=== PATIENT | female | born 1975 | race Two or more races ===

== ENCOUNTER 2025-08-30 08:26 | Outpatient (AMB) | payer BC, SELFPAY ==
--- OUTSIDE RECORDS SUMMARY | 2025-07-05 09:00 | XMS_ITS ---
Author Organization [facility] [address] Address [address] [place] [address] Care Team Providers Care Field Observer Name Role Phone HUMPHREY DELUNA Unavailable [phone] JAE WILLINGHAM Unavailable [phone] REASON FOR VISIT 0.5mg Encounters Encounter Location Date Provider Diagnosis [facility] [place] [address] 07/05/2025 JAE WILLINGHAM Plan Of Treatment No Information Progress Notes * RIOSLore FELICIANOJacqueOB: 4 (49 yo F)Acc No.[id number]:07/05/2025 Patient: Charlotte CANTU Provider: Camila Willingham MD :1975 A ge:49 Y S ex:Female Date:07/05/2025 Address:[address] [place], [place] [id number] Subjective: * Chief Complaints: * 1 . 0.5mg. * Medical History: Objective: * Vitals: Assessment: Plan: * Treatment: * Images: Billing Information: * Visit Code: * Procedure Codes: * Electronic signature of RISA WILLINGHAM MD on 08/30/2025 at 08:49 AM EDT Sign off status: Pending * Provider: Camila Willingham MD Date: 0 07/05/2025 Generated for Saadia franklin/Marni/Syed on: 1 08:49 AM EDT
--- OUTSIDE RECORDS SUMMARY | 2025-07-14 04:00 | XMS_ITS ---
Author Organization [facility] [address] Address [address] [place] [address] Care Team Providers Care Nutritional Assistant Name Role Phone HUMPHREY DELUNA Unavailable [phone] JAE WILLINGHAM Unavailable [phone] REASON FOR VISIT 0.5mg Encounters Encounter Location Date Provider Diagnosis [facility] [address] [place] [address] 07/14/2025 JAE WILLINGHAM Plan Of Treatment No Information Progress Notes * RIOSLore BOOTHEJacqueOB: 4 (49 yo F)Acc No.[id number]:07/14/2025 Patient: Charlotte CANTU Provider: Camila Willingham MD :1975 A ge:49 Y S ex:Female Date:07/14/2025 Address:[address] [place], [place] [phone] Subjective: * Chief Complaints: * 1 . 0.5mg. * Medical History: Objective: * Vitals: Assessment: Plan: * Treatment: * Images: Billing Information: * Visit Code: * Procedure Codes: * Electronic signature of RISA WILLINGHAM MD on 08/30/2025 at 08:49 AM EDT Sign off status: Pending * Provider: Camila Willingham MD Date: 0 07/14/2025 Generated for Saadia franklin/Marni/Syed on: 1 08:49 AM EDT
--- OUTSIDE RECORDS SUMMARY | 2025-07-21 04:00 | XMS_ITS ---
Author Organization [facility] [address] Address [address] [place] [address] Care Team Providers Care Vulcanizing Machine Operator Name Role Phone HUMPHREY DELUNA Unavailable [phone] JAE WILLINGHAM Unavailable [phone] REASON FOR VISIT 0.5mg Encounters Encounter Location Date Provider Diagnosis [facility] [address] [place] [address] 07/21/2025 JAE WILLINGHAM Plan Of Treatment No Information Progress Notes * RIOSLore FELICIANOJacqueOB: 4 (49 yo F)Acc No.[id number]:07/21/2025 Patient: Charlotte CANTU Provider: Camila Willingham MD :1975 A ge:49 Y S ex:Female Date:07/21/2025 Address:[address] [place], [place] [phone] Subjective: * Chief Complaints: * 1 . 0.5mg. * Medical History: Objective: * Vitals: Assessment: Plan: * Treatment: * Images: Billing Information: * Visit Code: * Procedure Codes: * Electronic signature of RISA WILLINGHAM MD on 08/30/2025 at 08:50 AM EDT Sign off status: Pending * Provider: Camila Willingham MD Date: 0 07/21/2025 Generated for Saadia franklin/Marni/Syed on: 1 08:50 AM EDT
--- OUTSIDE RECORDS SUMMARY | 2025-07-28 04:00 | XMS_ITS ---
Author Organization [facility] [address] Address [address] [place] [address] Care Team Providers Care Regulatory Assistant Name Role Phone HUMPHREY DELUNA Unavailable [phone] JAE WILLINGHAM Unavailable [phone] REASON FOR VISIT 0.5mg Encounters Encounter Location Date Provider Diagnosis [facility] [address] [place] [address] 07/28/2025 JAE WILLINGHAM Plan Of Treatment No Information Progress Notes * RIOSLore FELICIANOJacqueOB: 4 (49 yo F)Acc No.[id number]:07/28/2025 Patient: Charlotte CANTU Provider: Camila Willingham MD :1975 A ge:49 Y S ex:Female Date:07/28/2025 Address:[address] [place], [place] [id number] Subjective: * Chief Complaints: * 1 . 0.5mg. * Medical History: Objective: * Vitals: Assessment: Plan: * Treatment: * Images: Billing Information: * Visit Code: * Procedure Codes: * Electronic signature of RISA WILLINGHAM MD on 08/30/2025 at 08:50 AM EDT Sign off status: Pending * Provider: Camila Willingham MD Date: 0 07/28/2025 Generated for Saadia franklin/Marni/Syed on: 1 08:50 AM EDT
--- OUTSIDE RECORDS SUMMARY | 2025-08-01 09:30 | XMS_ITS ---
Author Organization [facility] [address] Address [address] [place] [address] Care Team Providers Care Ip Network Architect Name Role Phone HUMPHREY DELUNA Unavailable [phone] Encounters Encounter Location Date Provider Diagnosis [facility] [place] [address] 08/01/2025 HUMPHREY DELUNA Plan Of Treatment No Information Progress Notes * Chet RIOSOB: 4 (49 yo F)Acc No.[id number]:08/01/2025 Patient: Charlotte CANTU Provider: Cory DELUNA PA-C :1975 A ge:49 Y S ex:Female Date:08/01/2025 Address:[address] [place], [place] [phone] Subjective: * Chief Complaints: * * Medical History: Objective: * Vitals: Assessment: Plan: * Treatment: * Images: Billing Information: * Visit Code: * Procedure Codes: * Electronic signature of FELICIANO DELUNA PA-C, [id number] on 08/30/2025 at 08:50 AM EDT Sign off status: Pending * Provider: Cory DELUNA PA-C Date: 0 08/01/2025 Generated for Saadia franklin/Marni/eTransmitting on: 1 08:50 AM EDT
--- NOTE | 2025-08-30 08:40 | A.OFFVIS_ITS ---
Intake Visit Reasons: dizziness Allergies No Known Allergies Allergy (Verified 08/29/25 13:06) Medication List - Last Reconciled 08/30/25 by Amie Hernández MD albuterol sulfate 90 mcg/actuation 2 inhalations inhalation Q6H PRN estradiol 1 patch topical 2XW montelukast 10 mg PO BEDTIME plecanatide (Trulance) 3 mg PO DAILY sumatriptan succinate mg PO topiramate 50 mg PO BID HPI Comments Details: This is a 49-year-old right-handed woman with a history of migraines with aura for 25 years currently under control with topiramate, history of IBS, endometriosis and PCOS who is here for evaluation of dizzy spells. Approximately 6 months ago she started having random episodes of lightheaded and vertiginous dizziness that comes on mostly when she stands up. She immediately has to sit down put her head down and sometimes lie down but even that does not lead to resolution of her symptoms and she feels crampy and wiped out for the rest of the day for several hours or the entire day. She can go a couple of weeks without any symptoms and then she can have 2 or 3 episodes in a week. There is no relationship to hydration, to eating or not eating. Her hearing is intact with no hearing loss or tinnitus. She does get some vertiginous sensation of things spinning but is also lightheaded. Occasionally she gets palpitation. It does not feel like any of her migraine prodromal symptoms. There is no subsequent headache. She was seen in the emergency room had a 24 hour Holter monitor in a 24 hour blood pressure monitor which were unremarkable. She sleeps well at night. There is no racing of the heart or skipped beats during the symptomatic episodes. Her blood pressure has been checked and is sometimes slightly low but not in a major way. [facility] Medical History (Updated 08/30/25 @ 09:00 by Amie Hernández MD) Migraine Asthma Dyspnea Palpitations Dizziness Insomnia Endometriosis PCOS (polycystic ovarian syndrome) IBS (irritable bowel syndrome) Surgical History (Updated 08/29/25 @ 13:02 by Felicita Sterling CMA) H/O: hysterectomy Review of Systems Const Details: ?Sleep Difficulty getting to sleep??denies.??Difficulty maintaining sleep??denies?.?? Urge to move legs??denies.??Teeth grinding??denies.??Shouting or Kicking during sleep??denies.??Abnormal behavior during sleep??denies.??Excessive sleep??denies.??Snoring??denies.??Daytime sleepiness??denies.? General/Constitutional Change in appetite??denies.??Chills??denies.??Fatigue??denies.??Fever??denies.?? Weight gain??denies.??Weight loss??denies.? Ophthalmologic Blurred vision??denies.??Diminished visual acuity??denies.? ENT Stuffiness??denies.??Decreased hearing??denies.??Dry mouth??denies.??Ear pain??denies.??Nosebleed??denies.??Ringing in the ears??denies.??Sinus pain ??denies.??Sore throat??denies.??Swollen glands??denies.? Endocrine Cold intolerance??denies.??Excessive thirst??denies.??Frequent urination ??denies.??Heat intolerance??denies.? Respiratory Shortness of breath??denies.??Chest pain??denies.??Cough??denies.? Breast Breast lump??denies.??Nipple discharge??denies.? Cardiovascular Chest pain at rest??denies.??Chest pain with exertion??denies.??Claudication ??denies.??Fluid accumulation in the legs??denies.??Irregular heartbeat ??denies.??Palpitations??denies.? Gastrointestinal Abdominal pain??denies.??Constipation??denies.??Diarrhea??denies.??Heartburn ??denies.??Nausea??denies.??Rectal bleeding??denies.? Hematology Easy bruising??denies.??Prolonged bleeding??denies.? Genitourinary Frequent urination??yes.??Urgency??denies.??Incontinence??denies.??Erectile Dysfunction??denies.? Musculoskeletal Neck pain??denies.??Back pain??denies.??Muscle aches??denies.??Painful joints??denies.? Neurologic Difficulty swallowing??denies.??Balance difficulty??denies.??Coordination ??normal.??Difficulty speaking??denies.??Dizziness??Yes.??Fainting??denies.?? Gait abnormality??denies.??Headache??Yes.??Loss of strength??denies.??Loss of use of extremity??denies.??Memory loss??denies.??Seizures??denies.??Tics ??denies.??Tingling/Numbness??denies.??Transient loss of vision??denies.?? Tremor??denies.? Psychiatric Anxiety??denies.??Auditory/visual hallucinations??denies.??Delusions ??denies.??Depressed mood??denies.??Stressors??denies.??Substance abuse ??denies.??Suicidal thoughts??denies.? Physical Exam Vital Signs: 119/83, 71. 62 inches, 131 lbs Neuro Other: ?Mini Mental Status Exam Level of Consciousness:?Alert.? Orientation:?Knows correct year, month, date, day and season.?Knows correct city, county and state. Knows correct location and floor.? Registration:?Able to register 3 objects.? Attention:?Serial 7's performed accurately.? Recall:?Able to recall 3 out of 3 objects.? Language:?Normal spontaneous speech, fluency, repetition, naming, comprehension, reading, and writing.? Total Score:?30/30.? Neurological Abnormal neurological findings:??none.? Mental Status:?Alert and oriented X 3.?Normal attention, orientation, memory, and affect.? Cranial Nerves:?Pupils are equal, round and reactive to light. Fundoscopy shows normal disc bilaterally. External occular muscles are intact. Visual liu are full, no ptosis. Face is symmetrical, no facial weakness or droop. Facial sensations are normal. Tongue protrudes in midline. Palate elevates symmetrically. Shoulder shrugging is normal.? Motor Examination:?Normal muscle tone, bulk and strength.?No atrophy or fasciculations.?No drift of the extended upper extremities.?Deep tendon reflexes are 2+.?Plantars are flexor.? Motor Strength:? Proximal Muscles (out of 5):?5 Distal Muscles (out of 5):?5 Neck Flexors (out of 5):?5 Neck Extensors (out of 5):?5 Deltoid (out of 5):?5 Biceps (out of 5):?5 Triceps (out of 5):?5 Serratus Anterior (out of 5):?5 Wrist Extensors (out of 5):?5 APB (out of 5):?5 Finger Spread (out of 5):?5 Ileopsoas (out of 5):?5 Quadriceps (out of 5):?5 Hamstrings (out of 5):?5 Tibialis Anterior (out of 5):?5 Peronei (out of 5):?5 EDB (out of 5):?5 Gastrocnemius (out of 5):?5 Straight Leg Raising:?90 degrees.? Sensory Exam:?Normal light touch, temperature, pinprick, vibration and joint-position sensations.?Rhomberg sign is absent.? Coordination:?No ataxia,?no titubation,?pfuvqr-tj-kdrd, wecs-bsft-akmz test, and rapid alternating movements were normal.? Gait Exam:?Within normal limits.? Cerebellar Signs:?Lgsgmf-bu-rfct and txig-wk-iifw is normal.?No dysdiadochokinesia.? Extrapyramidal System:?No tremor or?rigidity, normal facial expressions.?No bradykinesia. No bradyphrenia. Normal arm swing and posture. No propulsion or retropulsion.? Speech:?Normal,?no dysphasia or dysarthria.? General Examination GENERAL APPEARANCE:??normal,?in no acute distress?,?normal,?in no acute distress.? HEAD:??normocephalic,?atraumatic.? EYES:??sclera non-icteric,?conjunctiva clear.? EARS:??auditory canal clear,?tympanic membrane intact, clear.? NOSE:??no lesions.? ORAL CAVITY:??gums normal,?mucosa moist,?no lesions.? THROAT:??clear.? NECK/THYROID:??no cervical lymphadenopathy,?thyroid normal,?neck supple, full range of motion,?no carotid bruit.? SKIN:??no rashes,?no significant birthmarks.? HEART:??S1, S2 normal,?no murmurs?,?S1, S2 normal,?no murmurs.? LUNGS:??clear anteriorly and posteriorly?,?clear anteriorly and posteriorly.? CHEST:??no gross rib deformity,?clear to auscultation.? BACK:??normal exam of spine.? MUSCULOSKELETAL:??normal.? EXTREMITIES:??no edema?,?no edema.? PERIPHERAL PULSES:??normal.? PSYCH:??alert, oriented,?cognitive function intact,?cooperative with exam?,?alert, oriented,?cognitive function intact,?cooperative with exam.? Assessment & Plan Assessment & Plan (1) Migraine: Code(s): G43.909 - Migraine, unspecified, not intractable, without status migrainosus Category: Medical (2) Dizziness: Code(s): R42 - Dizziness and giddiness Category: Medical (3) Palpitations: Code(s): R00.2 - Palpitations Category: Medical Plan MRI brain, EEG, Labs. Check BP at home with arm cuff especially when symptomatic. Keep a log of events and their duration on a calendar Orders: Orders Basic Metabolic Panel Today R42 - Dizziness and giddiness Erythrocyte Sedimentation Rate Today R42 - Dizziness and giddiness MR head/brain wo con 3 Weeks R42 - Dizziness and giddiness EEG Routine Today R42 - Dizziness and giddiness Complete Blood Count Auto Diff Today R42 - Dizziness and giddiness TSH reflex Free T4 Today R00.2 - Palpitations Coding Level of Care Code New Pt Level 5 (49883) Diagnoses Migraine G43.909 Dizziness R42 Palpitations R00.2
--- OUTSIDE RECORDS SUMMARY | 2025-08-30 08:50 | XMS_ITS | Patient Health Record ---
Author Organization [facility] Address [address] [place] [address] Care Team Providers Care Intern Brand Name Role Phone HUMPHREY DELUNA Unavailable [phone] [place], PUJAGEORGETTE Unavailable [phone] CLIFF MOULTON Unavailable [phone] PAN GARCES Unavailable [phone] Allergies No Known Allergies Reason For Referral No Information Medications Medication SIG (Take, Route, Frequency, Duration) Notes Start Date End Date Status Topamax 50 MG 1 tablet Orally Once a day Active Montelukast Sodium 10 MG 1 tablet Orally Once a day Active Contrave 8-90 MG Take two tablets by mouth twice a day Active Estradiol 0.05 MG/24HR 1 patch to skin Transdermal Two times a Week Active Ventolin HFA 108 (90 Base) MCG/ACT 1 puff as needed Inhalation every 4 hrs Active Social History Tobacco Use: Social History Observation Description Date Details (start date - stop date) Never Smoker NA - NA Tobacco Use/Smoking Question Answer Notes Are you a nonsmoker Problems Problem Type SNOMED Code ICD Code Onset Dates Problem Status W/U Status Risk Notes Problem Mild intermittent asthma (522869691) Mild intermittent asthma without complication (J45.20) Active confirmed Problem Body mass index 30+ - obesity (625342046) BMI 30.0-30.9,adult (Z68.30) Active confirmed Problem Overweight (685841060) Overweight (BMI 25.0-29.9) (E66.3) Active confirmed Problem Obesity (006203794) Obesity due to excess calories without serious comorbidity, unspecified classification (E66.09) Active confirmed Problem Exercise-induced asthma (23133694) Asthma, exercise induced (J45.990) Active confirmed Vital Signs Heart Rate 74 /min 05/22/2025 Oximetry 94 % 05/22/2025 Blood pressure diastolic 82 mm Hg 05/22/2025 Height 61 in 05/22/2025 Blood pressure systolic 132 mm Hg 05/22/2025 Weight 136.1 lbs 05/22/2025 BMI 25.71 kg/m2 05/22/2025 Encounters Encounter Location Date Provider Diagnosis [facility] [address] [place] [address] 09/09/2024 TALAL [place]AM [facility] [address] [place] [address] 10/12/2024 CLIFF NICOT [facility] [place] [address] 10/19/2024 TALAL [place]AM [facility] [place] [address] 10/26/2024 TALAL [place]AM [facility] [place] [address] 02/18/2025 TALAL [place]AM [facility] [place] [address] 02/23/2025 PAN GARCES [facility] [address] [place] [address] 03/03/2025 TALAL [place]AM [facility] [place] [address] 03/11/2025 TALAL [place]AM [facility] [place] [address] 03/24/2025 TALAL [place]AM [facility] [address] [place] [address] 03/31/2025 TALAL [place]AM [facility] [place] [address] 04/07/2025 TALAL [place]AM [facility] [place] [address] 04/14/2025 TALAL [place]AM [facility] [place] [address] 04/21/2025 TALAL [place]AM [facility] [place] [address] 04/28/2025 TALAL [place]AM [facility] [phone] [address] 05/05/2025 TALAL [place]AM [facility] [address] [place] [address] 05/12/2025 TALAL [place]AM [facility] [place] [address] 05/18/2025 TALAL [place]AM [facility] [address] [place] [address] 05/26/2025 TALAL [place]AM [facility] [place], [place] 06/02/2025 TALAL [place]AM [facility] [place] [address] 06/09/2025 TALAL [place]AM [facility] [address] [facility], [place] 06/16/2025 TALAL [place]AM [facility] [address] [place] [place] [address] 06/23/2025 TALAL [place]AM [facility] [address] [facility], [place] 06/30/2025 TALAL [place]AM [facility] [address] [place] [place] [address] 10/05/2024 HUMPHREY MIKIE Asthma, exercise induced J45.[address] [facility] [address] [facility], [place] 11/14/2024 HUMPHREY MIKIE Asthma, exercise induced J45.990 and BMI 23.0-23.9, adult Z68.[address] [facility] [address] [facility], [place] 02/10/2025 HUMPHREY MIKIE Overweight (BMI 25.0-29.9) E66.3 ; BMI 26.0-26.9,adult Z68.26 and Asthma, exercise induced J45.[address] [facility] [address] [place] [place] [address] 03/16/2025 HUMPHREY MIKIE Overweight (BMI 25.0-29.9) E66.3 ; BMI 26.0-26.9,adult Z68.26 ; Asthma, exercise induced J45.990 and Nutritional counseling Z71.[address] [facility] [address] [place] [address] 05/22/2025 HUMPHREY DELUNA BMI 25.0-25.9,adult Z68.25 ; Overweight (BMI 25.0-29.9) E66.3 ; Asthma, exercise induced J45.990 ; Nutritional counseling Z71.3 and Encounter for examination of blood pressure without abnormal findings Z01.30 [facility] [address] [address] 01/04/2025 HUMPHREY DELUNA Assessments Encounter Date Diagnosis (ICD Code) Assessment Notes Treatment Notes Treatment Clinical Notes Section Notes 10/05/2024 Asthma, exercise induced (ICD-10 - J45.990) 07/13/24: Charlotte has made great progress since starting Semaglutide. Weight current: Wt: 124 lbs, 23.43 BMI. Weight last visit (02/10): Wt: 129.3 lbs, BMI: 24.43. SECA reviewed with pt. Pt reports feeling great with no side effects. Discussed continuing current diet and exercise regimen. Continue Semaglutide 0.5mg once monthly. Pt will be seen again in 3 months, consider discontinuing Sema at that time. Discussed pt can also choose to discontinue Sema when she wants. Pt is agreeable to this plan and feels confident she can maintain her weight once weaned off. 10/05/2024: Wt: 125.4 lbs, BMI: 23.69. Plan for patient to receive injection of semaglutide 0.5 mg. Plan to repeat again once in October to taper off in November. Patient happy at goal weight. Discussed seca scan with patient which is all within normal limits including BMI, fat mass, muscle mass, visceral adipose tissue and weight circumference. Patient endorses slightly larger portion sizes, which she knows she has to focus on eating less mindfully. Patient worried about going through the holiday season and would like to maintain some appetite suppression. Plan to follow-up in a month and consider semaglutide 0.25 mg to taper off. #Asthma: Well-managed. Does not regularly need inhaler. Denies shortness of breath. Plan to continue montelukast sodium 10 mg p.o. once daily as well as Ventolin HFA 1 puff as needed every 4 hours. Total time spent is was 30 minutes, with more face to face time This medication is prescribed by or in consultation with a board certified obesity and weight management physician Dr. Chris Willingham The patient will continue exercise regimen with an emphasis on improving/increasing steps to at least 6,000-10,000 steps per day. Increasing cardio and strength training exercises as tolerated to improve weight loss and work on building muscle mass. Patient is committed to smarter eating with calorie counting and mindful eating. Limiting processed foods and carbohydrates and increasing leafy greens and lean proteins as well as fruits into their diet. Patient was counseled on the importance of eating local, organic food when possible. Patient has been counseled regarding effects of GLP/GIP-1 agonists and other FDA approved weight loss medications with regards to a multifactorial approach of weight loss as mentioned above and that the medication alone will not be sufficient to meet patients goals. We discussed holistic medication approach with emphasis on lifestyle modification. Discussed obesity as it increases risk of diabetes, cardiovascular disease, and/or organ damage. We spent a lot of time discussing the relationship between food, exercise, sleep, mental health, and obesity. We discussed the importance of having SECAs done every visit and having accountability done during these visits. That the scale is done to monitor not only weight loss but the body composition during medication management and healthy lifestyle changes. We discussed that if the patient is unable at times to financially afford this scale that we would rather waive the fee and have the scale done than have the patient not have the scale obtained. Will follow up with the patient in 4 weeks time to monitor weight loss. total time was 30 min, greater than 50 % of time was spent on care coordination Case discussed with collaborating physician Camila Willingham who reviewed the assessment and plan. Chart, medications, labs, vital signs reviewed. Dictation was accomplished with the use of [employer] voice recognition software, prone to medical misidentifications and grammatical errors. This is unintentional and the practitioner does try to identify and correct these, but some could still be present. Please do not hesitate to contact practitioner for clarification. All questions answered to patients satisfaction. Patient verbalized understanding of diagnosis and treatments explained. To call sooner prior to next visit it any questions/concerns arise. 11/14/2024 BMI 23.0-23.9, adult (ICD-10 - Z68.23) Charlotte is a 49 year old female present today for weight management follow up. 07/13/24: Charlotte has made great progress since starting Semaglutide. Weight current: Wt: 124 lbs, 23.43 BMI. Weight last visit (02/10): Wt: 129.3 lbs, BMI: 24.43. SECA reviewed with pt. Pt reports feeling great with no side effects. Discussed continuing current diet and exercise regimen. Continue Semaglutide 0.5mg once monthly. Pt will be seen again in 3 months, consider discontinuing Sema at that time. Discussed pt can also choose to discontinue Sema when she wants. Pt is agreeable to this plan and feels confident she can maintain her weight once weaned off. 10/05/2024: Wt: 125.4 lbs, BMI: 23.69. Plan for patient to receive injection of semaglutide 0.5 mg. Plan to repeat again once in October to taper off in November. Patient happy at goal weight. Discussed seca scan with patient which is all within normal limits including BMI, fat mass, muscle mass, visceral adipose tissue and weight circumference. Patient endorses slightly larger portion sizes, which she knows she has to focus on eating less mindfully. Patient worried about going through the holiday season and would like to maintain some appetite suppression. Plan to follow-up in a month and consider semaglutide 0.25 mg to taper off. 11/14/24: Wt: 124.5 lbs, BMI: 23.52 Patient has been congratulated on reaching a normal BMI and maintaining for the past couple of months. Patient's last injection of semaglutide 0.5 mg was on 10/12. Discussed that because her BMI is normal, it is imperative that we stop medication. Patient agreeable with plan. Plan to continue lifestyle modifications including smaller portions, well-balanced and focusing on protein. Discussed the importance of continuing physical activity with a daily step goal of 8K steps daily in addition to strength training. Patient feels confident to continue these lifestyle modifications independently. Discussed seca scan. Plan to follow-up in 6 months to perform seca scan. #Asthma: Well-managed. Does not regularly need inhaler. Denies shortness of breath. Plan to continue montelukast sodium 10 mg p.o. once daily as well as Ventolin HFA 1 puff as needed every 4 hours. Total time spent is was 30 minutes, with more face to face time This medication is prescribed by or in consultation with a board certified obesity and weight management physician Dr. Chris Willingham The patient will continue exercise regimen with an emphasis on improving/increasing steps to at least 6,000-10,000 steps per day. Increasing cardio and strength training exercises as tolerated to improve weight loss and work on building muscle mass. Patient is committed to smarter eating with calorie counting and mindful eating. Limiting processed foods and carbohydrates and increasing leafy greens and lean proteins as well as fruits into their diet. Patient was counseled on the importance of eating local, organic food when possible. Patient has been counseled regarding effects of GLP/GIP-1 agonists and other FDA approved weight loss medications with regards to a multifactorial approach of weight loss as mentioned above and that the medication alone will not be sufficient to meet patients goals. We discussed holistic medication approach with emphasis on lifestyle modification. Discussed obesity as it increases risk of diabetes, cardiovascular disease, and/or organ damage. We spent a lot of time discussing the relationship between food, exercise, sleep, mental health, and obesity. We discussed the importance of having SECAs done every visit and having accountability done during these visits. That the scale is done to monitor not only weight loss but the body composition during medication management and healthy lifestyle changes. We discussed that if the patient is unable at times to financially afford this scale that we would rather waive the fee and have the scale done than have the patient not have the scale obtained. Will follow up with the patient in 4 weeks time to monitor weight loss. total time was 30 min, greater than 50 % of time was spent on care coordination Case discussed with collaborating physician Camila Willingham who reviewed the assessment and plan. Chart, medications, labs, vital signs reviewed. Dictation was accomplished with the use of [employer] voice recognition software, prone to medical misidentifications and grammatical errors. This is unintentional and the practitioner does try to identify and correct these, but some could still be present. Please do not hesitate to contact practitioner for clarification. All questions answered to patients satisfaction. Patient verbalized understanding of diagnosis and treatments explained. To call sooner prior to next visit it any questions/concerns arise. 11/14/2024 Asthma, exercise induced (ICD-10 - J45.990) Charlotte is a 49 year old female present today for weight management follow up. 07/13/24: Charlotte has made great progress since starting Semaglutide. Weight current: Wt: 124 lbs, 23.43 BMI. Weight last visit (02/10): Wt: 129.3 lbs, BMI: 24.43. SECA reviewed with pt. Pt reports feeling great with no side effects. Discussed continuing current diet and exercise regimen. Continue Semaglutide 0.5mg once monthly. Pt will be seen again in 3 months, consider discontinuing Sema at that time. Discussed pt can also choose to discontinue Sema when she wants. Pt is agreeable to this plan and feels confident she can maintain her weight once weaned off. 10/05/2024: Wt: 125.4 lbs, BMI: 23.69. Plan for patient to receive injection of semaglutide 0.5 mg. Plan to repeat again once in October to taper off in November. Patient happy at goal weight. Discussed seca scan with patient which is all within normal limits including BMI, fat mass, muscle mass, visceral adipose tissue and weight circumference. Patient endorses slightly larger portion sizes, which she knows she has to focus on eating less mindfully. Patient worried about going through the holiday season and would like to maintain some appetite suppression. Plan to follow-up in a month and consider semaglutide 0.25 mg to taper off. 11/14/24: Wt: 124.5 lbs, BMI: 23.52 Patient has been congratulated on reaching a normal BMI and maintaining for the past couple of months. Patient's last injection of semaglutide 0.5 mg was on 10/12. Discussed that because her BMI is normal, it is imperative that we stop medication. Patient agreeable with plan. Plan to continue lifestyle modifications including smaller portions, well-balanced and focusing on protein. Discussed the importance of continuing physical activity with a daily step goal of 8K steps daily in addition to strength training. Patient feels confident to continue these lifestyle modifications independently. Discussed seca scan. Plan to follow-up in 6 months to perform seca scan. #Asthma: Well-managed. Does not regularly need inhaler. Denies shortness of breath. Plan to continue montelukast sodium 10 mg p.o. once daily as well as Ventolin HFA 1 puff as needed every 4 hours. Total time spent is was 30 minutes, with more face to face time This medication is prescribed by or in consultation with a board certified obesity and weight management physician Dr. Chris Willingham The patient will continue exercise regimen with an emphasis on improving/increasing steps to at least 6,000-10,000 steps per day. Increasing cardio and strength training exercises as tolerated to improve weight loss and work on building muscle mass. Patient is committed to smarter eating with calorie counting and mindful eating. Limiting processed foods and carbohydrates and increasing leafy greens and lean proteins as well as fruits into their diet. Patient was counseled on the importance of eating local, organic food when possible. Patient has been counseled regarding effects of GLP/GIP-1 agonists and other FDA approved weight loss medications with regards to a multifactorial approach of weight loss as mentioned above and that the medication alone will not be sufficient to meet patients goals. We discussed holistic medication approach with emphasis on lifestyle modification. Discussed obesity as it increases risk of diabetes, cardiovascular disease, and/or organ damage. We spent a lot of time discussing the relationship between food, exercise, sleep, mental health, and obesity. We discussed the importance of having SECAs done every visit and having accountability done during these visits. That the scale is done to monitor not only weight loss but the body composition during medication management and healthy lifestyle changes. We discussed that if the patient is unable at times to financially afford this scale that we would rather waive the fee and have the scale done than have the patient not have the scale obtained. Will follow up with the patient in 4 weeks time to monitor weight loss. total time was 30 min, greater than 50 % of time was spent on care coordination Case discussed with collaborating physician Camila Willingham who reviewed the assessment and plan. Chart, medications, labs, vital signs reviewed. Dictation was accomplished with the use of [employer] voice recognition software, prone to medical misidentifications and grammatical errors. This is unintentional and the practitioner does try to identify and correct these, but some could still be present. Please do not hesitate to contact practitioner for clarification. All questions answered to patients satisfaction. Patient verbalized understanding of diagnosis and treatments explained. To call sooner prior to next visit it any questions/concerns arise. 02/10/2025 BMI 26.0-26.9,adul t (ICD-10 - Z68.26) Charlotte is a 49 year old female present today for weight management follow up. 07/13/24: Charlotte has made great progress since starting Semaglutide. Weight current: Wt: 124 lbs, 23.43 BMI. Weight last visit (02/10): Wt: 129.3 lbs, BMI: 24.43. SECA reviewed with pt. Pt reports feeling great with no side effects. Discussed continuing current diet and exercise regimen. Continue Semaglutide 0.5mg once monthly. Pt will be seen again in 3 months, consider discontinuing Sema at that time. Discussed pt can also choose to discontinue Sema when she wants. Pt is agreeable to this plan and feels confident she can maintain her weight once weaned off. 10/05/2024: Wt: 125.4 lbs, BMI: 23.69. Plan for patient to receive injection of semaglutide 0.5 mg. Plan to repeat again once in October to taper off in November. Patient happy at goal weight. Discussed seca scan with patient which is all within normal limits including BMI, fat mass, muscle mass, visceral adipose tissue and weight circumference. Patient endorses slightly larger portion sizes, which she knows she has to focus on eating less mindfully. Patient worried about going through the holiday season and would like to maintain some appetite suppression. Plan to follow-up in a month and consider semaglutide 0.25 mg to taper off. 11/14/24: Wt: 124.5 lbs, BMI: 23.52 Patient has been congratulated on reaching a normal BMI and maintaining for the past couple of months. Patient's last injection of semaglutide 0.5 mg was on 10/12. Discussed that because her BMI is normal, it is imperative that we stop medication. Patient agreeable with plan. Plan to continue lifestyle modifications including smaller portions, well-balanced and focusing on protein. Discussed the importance of continuing physical activity with a daily step goal of 8K steps daily in addition to strength training. Patient feels confident to continue these lifestyle modifications independently. Discussed seca scan. Plan to follow-up in 6 months to perform seca scan. 02/10/2025: Wt: 140 lbs, BMI: 26.45 patient previously tapered off of medication when reaching a normal BMI. Last injection of semaglutide 0.5 mg on 10/12/2024. Last weight management follow-up on 11/14/2024. Unfortunately since being without medication, patient has gained 16 pounds, 10 pounds of fat mass and gained 3 pounds of muscle. Patient is frustrated as she was not able to maintain weight with lifestyle. States she is unsure whether she can continue paying for injections as it is getting pricey. Recommend patient restart semaglutide 0.25 mg weekly x 1 month. At follow-up, will consider doing biweekly injections or switching to Contrave. Plan to follow-up in 4 weeks. Patient agreeable with plan. #Asthma: Well-managed. Does not regularly need inhaler. Denies shortness of breath. Plan to continue montelukast sodium 10 mg p.o. once daily as well as Ventolin HFA 1 puff as needed every 4 hours. Total time spent is was 30 minutes, with more face to face time This medication is prescribed by or in consultation with a board certified obesity and weight management physician Dr. Chris Willingham The patient will continue exercise regimen with an emphasis on improving/increasing steps to at least 6,000-10,000 steps per day. Increasing cardio and strength training exercises as tolerated to improve weight loss and work on building muscle mass. Patient is committed to smarter eating with calorie counting and mindful eating. Limiting processed foods and carbohydrates and increasing leafy greens and lean proteins as well as fruits into their diet. Patient was counseled on the importance of eating local, organic food when possible. Patient has been counseled regarding effects of GLP/GIP-1 agonists and other FDA approved weight loss medications with regards to a multifactorial approach of weight loss as mentioned above and that the medication alone will not be sufficient to meet patients goals. We discussed holistic medication approach with emphasis on lifestyle modification. Discussed obesity as it increases risk of diabetes, cardiovascular disease, and/or organ damage. We spent a lot of time discussing the relationship between food, exercise, sleep, mental health, and obesity. We discussed the importance of having SECAs done every visit and having accountability done during these visits. That the scale is done to monitor not only weight loss but the body composition during medication management and healthy lifestyle changes. We discussed that if the patient is unable at times to financially afford this scale that we would rather waive the fee and have the scale done than have the patient not have the scale obtained. Will follow up with the patient in 4 weeks time to monitor weight loss. total time was 30 min, greater than 50 % of time was spent on care coordination Case discussed with collaborating physician Camila Willingham who reviewed the assessment and plan. Chart, medications, labs, vital signs reviewed. Dictation was accomplished with the use of [employer] voice recognition software, prone to medical misidentifications and grammatical errors. This is unintentional and the practitioner does try to identify and correct these, but some could still be present. Please do not hesitate to contact practitioner for clarification. All questions answered to patients satisfaction. Patient verbalized understanding of diagnosis and treatments explained. To call sooner prior to next visit it any questions/concerns arise. 02/10/2025 Overweight (BMI 25.0-29.9) (ICD-10 - E66.3) Charlotte is a 49 year old female present today for weight management follow up. 07/13/24: Charlotte has made great progress since starting Semaglutide. Weight current: Wt: 124 lbs, 23.43 BMI. Weight last visit (02/10): Wt: 129.3 lbs, BMI: 24.43. SECA reviewed with pt. Pt reports feeling great with no side effects. Discussed continuing current diet and exercise regimen. Continue Semaglutide 0.5mg once monthly. Pt will be seen again in 3 months, consider discontinuing Sema at that time. Discussed pt can also choose to discontinue Sema when she wants. Pt is agreeable to this plan and feels confident she can maintain her weight once weaned off. 10/05/2024: Wt: 125.4 lbs, BMI: 23.69. Plan for patient to receive injection of semaglutide 0.5 mg. Plan to repeat again once in October to taper off in November. Patient happy at goal weight. Discussed seca scan with patient which is all within normal limits including BMI, fat mass, muscle mass, visceral adipose tissue and weight circumference. Patient endorses slightly larger portion sizes, which she knows she has to focus on eating less mindfully. Patient worried about going through the holiday season and would like to maintain some appetite suppression. Plan to follow-up in a month and consider semaglutide 0.25 mg to taper off. 11/14/24: Wt: 124.5 lbs, BMI: 23.52 Patient has been congratulated on reaching a normal BMI and maintaining for the past couple of months. Patient's last injection of semaglutide 0.5 mg was on 10/12. Discussed that because her BMI is normal, it is imperative that we stop medication. Patient agreeable with plan. Plan to continue lifestyle modifications including smaller portions, well-balanced and focusing on protein. Discussed the importance of continuing physical activity with a daily step goal of 8K steps daily in addition to strength training. Patient feels confident to continue these lifestyle modifications independently. Discussed seca scan. Plan to follow-up in 6 months to perform seca scan. 02/10/2025: Wt: 140 lbs, BMI: 26.45 patient previously tapered off of medication when reaching a normal BMI. Last injection of semaglutide 0.5 mg on 10/12/2024. Last weight management follow-up on 11/14/2024. Unfortunately since being without medication, patient has gained 16 pounds, 10 pounds of fat mass and gained 3 pounds of muscle. Patient is frustrated as she was not able to maintain weight with lifestyle. States she is unsure whether she can continue paying for injections as it is getting pricey. Recommend patient restart semaglutide 0.25 mg weekly x 1 month. At follow-up, will consider doing biweekly injections or switching to Contrave. Plan to follow-up in 4 weeks. Patient agreeable with plan. #Asthma: Well-managed. Does not regularly need inhaler. Denies shortness of breath. Plan to continue montelukast sodium 10 mg p.o. once daily as well as Ventolin HFA 1 puff as needed every 4 hours. Total time spent is was 30 minutes, with more face to face time This medication is prescribed by or in consultation with a board certified obesity and weight management physician Dr. Chris Willingham The patient will continue exercise regimen with an emphasis on improving/increasing steps to at least 6,000-10,000 steps per day. Increasing cardio and strength training exercises as tolerated to improve weight loss and work on building muscle mass. Patient is committed to smarter eating with calorie counting and mindful eating. Limiting processed foods and carbohydrates and increasing leafy greens and lean proteins as well as fruits into their diet. Patient was counseled on the importance of eating local, organic food when possible. Patient has been counseled regarding effects of GLP/GIP-1 agonists and other FDA approved weight loss medications with regards to a multifactorial approach of weight loss as mentioned above and that the medication alone will not be sufficient to meet patients goals. We discussed holistic medication approach with emphasis on lifestyle modification. Discussed obesity as it increases risk of diabetes, cardiovascular disease, and/or organ damage. We spent a lot of time discussing the relationship between food, exercise, sleep, mental health, and obesity. We discussed the importance of having SECAs done every visit and having accountability done during these visits. That the scale is done to monitor not only weight loss but the body composition during medication management and healthy lifestyle changes. We discussed that if the patient is unable at times to financially afford this scale that we would rather waive the fee and have the scale done than have the patient not have the scale obtained. Will follow up with the patient in 4 weeks time to monitor weight loss. total time was 30 min, greater than 50 % of time was spent on care coordination Case discussed with collaborating physician Camila Willingham who reviewed the assessment and plan. Chart, medications, labs, vital signs reviewed. Dictation was accomplished with the use of [employer] voice recognition software, prone to medical misidentifications and grammatical errors. This is unintentional and the practitioner does try to identify and correct these, but some could still be present. Please do not hesitate to contact practitioner for clarification. All questions answered to patients satisfaction. Patient verbalized understanding of diagnosis and treatments explained. To call sooner prior to next visit it any questions/concerns arise. 03/16/2025 BMI 26.0-26.9,adul t (ICD-10 - Z68.26) Charlotte is a 49 year old female present today for weight management follow up. 07/13/24: Charlotte has made great progress since starting Semaglutide. Weight current: Wt: 124 lbs, 23.43 BMI. Weight last visit (02/10): Wt: 129.3 lbs, BMI: 24.43. SECA reviewed with pt. Pt reports feeling great with no side effects. Discussed continuing current diet and exercise regimen. Continue Semaglutide 0.5mg once monthly. Pt will be seen again in 3 months, consider discontinuing Sema at that time. Discussed pt can also choose to discontinue Sema when she wants. Pt is agreeable to this plan and feels confident she can maintain her weight once weaned off. 10/05/2024: Wt: 125.4 lbs, BMI: 23.69. Plan for patient to receive injection of semaglutide 0.5 mg. Plan to repeat again once in October to taper off in November. Patient happy at goal weight. Discussed seca scan with patient which is all within normal limits including BMI, fat mass, muscle mass, visceral adipose tissue and weight circumference. Patient endorses slightly larger portion sizes, which she knows she has to focus on eating less mindfully. Patient worried about going through the holiday season and would like to maintain some appetite suppression. Plan to follow-up in a month and consider semaglutide 0.25 mg to taper off. 11/14/24: Wt: 124.5 lbs, BMI: 23.52 Patient has been congratulated on reaching a normal BMI and maintaining for the past couple of months. Patient's last injection of semaglutide 0.5 mg was on 10/12. Discussed that because her BMI is normal, it is imperative that we stop medication. Patient agreeable with plan. Plan to continue lifestyle modifications including smaller portions, well-balanced and focusing on protein. Discussed the importance of continuing physical activity with a daily step goal of 8K steps daily in addition to strength training. Patient feels confident to continue these lifestyle modifications independently. Discussed seca scan. Plan to follow-up in 6 months to perform seca scan. 02/10/2025: Wt: 140 lbs, BMI: 26.45 patient previously tapered off of medication when reaching a normal BMI. Last injection of semaglutide 0.5 mg on 10/12/2024. Last weight management follow-up on 11/14/2024. Unfortunately since being without medication, patient has gained 16 pounds, 10 pounds of fat mass and gained 3 pounds of muscle. Patient is frustrated as she was not able to maintain weight with lifestyle. States she is unsure whether she can continue paying for injections as it is getting pricey. Recommend patient restart semaglutide 0.25 mg weekly x 1 month. At follow-up, will consider doing biweekly injections or switching to Contrave. Plan to follow-up in 4 weeks. Patient agreeable with plan. 03/16/2025: Wt: 138.3 lbs, BMI: 26.13 patient currently on semaglutide 0.25 mg weekly injection. Denies any appetite suppression. Denies any side effects. Overall is lost about 2 pounds since last visit. 1 pound of fat loss and 1 pound of muscle loss. Discussed need to increase protein with a goal of at least 80 g daily. Discussed step count of 8 to 10K steps daily. Plan to increase semaglutide 0.5 mg weekly injections. Discussed possibility of beginning Contrave once patient hits goal weight for maintenance. #Asthma: Well-managed. Does not regularly need inhaler. Denies shortness of breath. Plan to continue montelukast sodium 10 mg p.o. once daily as well as Ventolin HFA 1 puff as needed every 4 hours. Total time spent is was 30 minutes, with more face to face time This medication is prescribed by or in consultation with a board certified obesity and weight management physician Dr. hCris Willingham The patient will continue exercise regimen with an emphasis on improving/increasing steps to at least 6,000-10,000 steps per day. Increasing cardio and strength training exercises as tolerated to improve weight loss and work on building muscle mass. Patient is committed to smarter eating with calorie counting and mindful eating. Limiting processed foods and carbohydrates and increasing leafy greens and lean proteins as well as fruits into their diet. Patient was counseled on the importance of eating local, organic food when possible. Patient has been counseled regarding effects of GLP/GIP-1 agonists and other FDA approved weight loss medications with regards to a multifactorial approach of weight loss as mentioned above and that the medication alone will not be sufficient to meet patients goals. We discussed holistic medication approach with emphasis on lifestyle modification. Discussed obesity as it increases risk of diabetes, cardiovascular disease, and/or organ damage. We spent a lot of time discussing the relationship between food, exercise, sleep, mental health, and obesity. We discussed the importance of having SECAs done every visit and having accountability done during these visits. That the scale is done to monitor not only weight loss but the body composition during medication management and healthy lifestyle changes. We discussed that if the patient is unable at times to financially afford this scale that we would rather waive the fee and have the scale done than have the patient not have the scale obtained. Will follow up with the patient in 4 weeks time to monitor weight loss. total time was 30 min, greater than 50 % of time was spent on care coordination Case discussed with collaborating physician Camila Willingham who reviewed the assessment and plan. Chart, medications, labs, vital signs reviewed. Dictation was accomplished with the use of [employer] voice recognition software, prone to medical misidentifications and grammatical errors. This is unintentional and the practitioner does try to identify and correct these, but some could still be present. Please do not hesitate to contact practitioner for clarification. All questions answered to patients satisfaction. Patient verbalized understanding of diagnosis and treatments explained. To call sooner prior to next visit it any questions/concerns arise. 03/16/2025 Overweight (BMI 25.0-29.9) (ICD-10 - E66.3) Charlotte is a 49 year old female present today for weight management follow up. 07/13/24: Charlotte has made great progress since starting Semaglutide. Weight current: Wt: 124 lbs, 23.43 BMI. Weight last visit (02/10): Wt: 129.3 lbs, BMI: 24.43. SECA reviewed with pt. Pt reports feeling great with no side effects. Discussed continuing current diet and exercise regimen. Continue Semaglutide 0.5mg once monthly. Pt will be seen again in 3 months, consider discontinuing Sema at that time. Discussed pt can also choose to discontinue Sema when she wants. Pt is agreeable to this plan and feels confident she can maintain her weight once weaned off. 10/05/2024: Wt: 125.4 lbs, BMI: 23.69. Plan for patient to receive injection of semaglutide 0.5 mg. Plan to repeat again once in October to taper off in November. Patient happy at goal weight. Discussed seca scan with patient which is all within normal limits including BMI, fat mass, muscle mass, visceral adipose tissue and weight circumference. Patient endorses slightly larger portion sizes, which she knows she has to focus on eating less mindfully. Patient worried about going through the holiday season and would like to maintain some appetite suppression. Plan to follow-up in a month and consider semaglutide 0.25 mg to taper off. 11/14/24: Wt: 124.5 lbs, BMI: 23.52 Patient has been congratulated on reaching a normal BMI and maintaining for the past couple of months. Patient's last injection of semaglutide 0.5 mg was on 10/12. Discussed that because her BMI is normal, it is imperative that we stop medication. Patient agreeable with plan. Plan to continue lifestyle modifications including smaller portions, well-balanced and focusing on protein. Discussed the importance of continuing physical activity with a daily step goal of 8K steps daily in addition to strength training. Patient feels confident to continue these lifestyle modifications independently. Discussed seca scan. Plan to follow-up in 6 months to perform seca scan. 02/10/2025: Wt: 140 lbs, BMI: 26.45 patient previously tapered off of medication when reaching a normal BMI. Last injection of semaglutide 0.5 mg on 10/12/2024. Last weight management follow-up on 11/14/2024. Unfortunately since being without medication, patient has gained 16 pounds, 10 pounds of fat mass and gained 3 pounds of muscle. Patient is frustrated as she was not able to maintain weight with lifestyle. States she is unsure whether she can continue paying for injections as it is getting pricey. Recommend patient restart semaglutide 0.25 mg weekly x 1 month. At follow-up, will consider doing biweekly injections or switching to Contrave. Plan to follow-up in 4 weeks. Patient agreeable with plan. 03/16/2025: Wt: 138.3 lbs, BMI: 26.13 patient currently on semaglutide 0.25 mg weekly injection. Denies any appetite suppression. Denies any side effects. Overall is lost about 2 pounds since last visit. 1 pound of fat loss and 1 pound of muscle loss. Discussed need to increase protein with a goal of at least 80 g daily. Discussed step count of 8 to 10K steps daily. Plan to increase semaglutide 0.5 mg weekly injections. Discussed possibility of beginning Contrave once patient hits goal weight for maintenance. #Asthma: Well-managed. Does not regularly need inhaler. Denies shortness of breath. Plan to continue montelukast sodium 10 mg p.o. once daily as well as Ventolin HFA 1 puff as needed every 4 hours. Total time spent is was 30 minutes, with more face to face time This medication is prescribed by or in consultation with a board certified obesity and weight management physician Dr. Chris Willingham The patient will continue exercise regimen with an emphasis on improving/increasing steps to at least 6,000-10,000 steps per day. Increasing cardio and strength training exercises as tolerated to improve weight loss and work on building muscle mass. Patient is committed to smarter eating with calorie counting and mindful eating. Limiting processed foods and carbohydrates and increasing leafy greens and lean proteins as well as fruits into their diet. Patient was counseled on the importance of eating local, organic food when possible. Patient has been counseled regarding effects of GLP/GIP-1 agonists and other FDA approved weight loss medications with regards to a multifactorial approach of weight loss as mentioned above and that the medication alone will not be sufficient to meet patients goals. We discussed holistic medication approach with emphasis on lifestyle modification. Discussed obesity as it increases risk of diabetes, cardiovascular disease, and/or organ damage. We spent a lot of time discussing the relationship between food, exercise, sleep, mental health, and obesity. We discussed the importance of having SECAs done every visit and having accountability done during these visits. That the scale is done to monitor not only weight loss but the body composition during medication management and healthy lifestyle changes. We discussed that if the patient is unable at times to financially afford this scale that we would rather waive the fee and have the scale done than have the patient not have the scale obtained. Will follow up with the patient in 4 weeks time to monitor weight loss. total time was 30 min, greater than 50 % of time was spent on care coordination Case discussed with collaborating physician Camila Willingham who reviewed the assessment and plan. Chart, medications, labs, vital signs reviewed. Dictation was accomplished with the use of [employer] voice recognition software, prone to medical misidentifications and grammatical errors. This is unintentional and the practitioner does try to identify and correct these, but some could still be present. Please do not hesitate to contact practitioner for clarification. All questions answered to patients satisfaction. Patient verbalized understanding of diagnosis and treatments explained. To call sooner prior to next visit it any questions/concerns arise. 05/22/2025 BMI 25.0-25.9,adul t (ICD-10 - Z68.25) Charlotte is a 49 year old female present today for weight management follow up. 07/13/24: Charlotte has made great progress since starting Semaglutide. Weight current: Wt: 124 lbs, 23.43 BMI. Weight last visit (02/10): Wt: 129.3 lbs, BMI: 24.43. SECA reviewed with pt. Pt reports feeling great with no side effects. Discussed continuing current diet and exercise regimen. Continue Semaglutide 0.5mg once monthly. Pt will be seen again in 3 months, consider discontinuing Sema at that time. Discussed pt can also choose to discontinue Sema when she wants. Pt is agreeable to this plan and feels confident she can maintain her weight once weaned off. 10/05/2024: Wt: 125.4 lbs, BMI: 23.69. Plan for patient to receive injection of semaglutide 0.5 mg. Plan to repeat again once in October to taper off in November. Patient happy at goal weight. Discussed seca scan with patient which is all within normal limits including BMI, fat mass, muscle mass, visceral adipose tissue and weight circumference. Patient endorses slightly larger portion sizes, which she knows she has to focus on eating less mindfully. Patient worried about going through the holiday season and would like to maintain some appetite suppression. Plan to follow-up in a month and consider semaglutide 0.25 mg to taper off. 11/14/24: Wt: 124.5 lbs, BMI: 23.52 Patient has been congratulated on reaching a normal BMI and maintaining for the past couple of months. Patient's last injection of semaglutide 0.5 mg was on 10/12. Discussed that because her BMI is normal, it is imperative that we stop medication. Patient agreeable with plan. Plan to continue lifestyle modifications including smaller portions, well-balanced and focusing on protein. Discussed the importance of continuing physical activity with a daily step goal of 8K steps daily in addition to strength training. Patient feels confident to continue these lifestyle modifications independently. Discussed seca scan. Plan to follow-up in 6 months to perform seca scan. 02/10/2025: Wt: 140 lbs, BMI: 26.45 patient previously tapered off of medication when reaching a normal BMI. Last injection of semaglutide 0.5 mg on 10/12/2024. Last weight management follow-up on 11/14/2024. Unfortunately since being without medication, patient has gained 16 pounds, 10 pounds of fat mass and gained 3 pounds of muscle. Patient is frustrated as she was not able to maintain weight with lifestyle. States she is unsure whether she can continue paying for injections as it is getting pricey. Recommend patient restart semaglutide 0.25 mg weekly x 1 month. At follow-up, will consider doing biweekly injections or switching to Contrave. Plan to follow-up in 4 weeks. Patient agreeable with plan. 03/16/2025: Wt: 138.3 lbs, BMI: 26.13 patient currently on semaglutide 0.25 mg weekly injection. Denies any appetite suppression. Denies any side effects. Overall is lost about 2 pounds since last visit. 1 pound of fat loss and 1 pound of muscle loss. Discussed need to increase protein with a goal of at least 80 g daily. Discussed step count of 8 to 10K steps daily. Plan to increase semaglutide 0.5 mg weekly injections. Discussed possibility of beginning Contrave once patient hits goal weight for maintenance. 05/22/2025: Wt: 136.1 lbs, BMI: 25.71 patient currently on semaglutide 0.5 mg weekly injections. Goal weight of 120s. Discussed supply shortage. Discussed option of bridging to Contrave as maintenance medication. Discussed need to increase and focus on high-protein diet. Plan to continue semaglutide while supply in office as well as begin Contrave. Discussed tapering up process. Will send to [facility] today. Plan to follow-up in 6 weeks. #Asthma: Well-managed. Does not regularly need inhaler. Denies shortness of breath. Plan to continue montelukast sodium 10 mg p.o. once daily as well as Ventolin HFA 1 puff as needed every 4 hours. Total time spent is was 30 minutes, with more face to face time This medication is prescribed by or in consultation with a board certified obesity and weight management physician Dr. Chris Willingham The patient will continue exercise regimen with an emphasis on improving/increasing steps to at least 6,000-10,000 steps per day. Increasing cardio and strength training exercises as tolerated to improve weight loss and work on building muscle mass. Patient is committed to smarter eating with calorie counting and mindful eating. Limiting processed foods and carbohydrates and increasing leafy greens and lean proteins as well as fruits into their diet. Patient was counseled on the importance of eating local, organic food when possible. Patient has been counseled regarding effects of GLP/GIP-1 agonists and other FDA approved weight loss medications with regards to a multifactorial approach of weight loss as mentioned above and that the medication alone will not be sufficient to meet patients goals. We discussed holistic medication approach with emphasis on lifestyle modification. Discussed obesity as it increases risk of diabetes, cardiovascular disease, and/or organ damage. We spent a lot of time discussing the relationship between food, exercise, sleep, mental health, and obesity. We discussed the importance of having SECAs done every visit and having accountability done during these visits. That the scale is done to monitor not only weight loss but the body composition during medication management and healthy lifestyle changes. We discussed that if the patient is unable at times to financially afford this scale that we would rather waive the fee and have the scale done than have the patient not have the scale obtained. Will follow up with the patient in 4 weeks time to monitor weight loss. total time was 30 min, greater than 50 % of time was spent on care coordination Case discussed with collaborating physician Camila Willingham who reviewed the assessment and plan. Chart, medications, labs, vital signs reviewed. Dictation was accomplished with the use of [employer] voice recognition software, prone to medical misidentifications and grammatical errors. This is unintentional and the practitioner does try to identify and correct these, but some could still be present. Please do not hesitate to contact practitioner for clarification. All questions answered to patients satisfaction. Patient verbalized understanding of diagnosis and treatments explained. To call sooner prior to next visit it any questions/concerns arise. 05/22/2025 Overweight (BMI 25.0-29.9) (ICD-10 - E66.3) Charlotte is a 49 year old female present today for weight management follow up. 07/13/24: Charlotte has made great progress since starting Semaglutide. Weight current: Wt: 124 lbs, 23.43 BMI. Weight last visit (02/10): Wt: 129.3 lbs, BMI: 24.43. SECA reviewed with pt. Pt reports feeling great with no side effects. Discussed continuing current diet and exercise regimen. Continue Semaglutide 0.5mg once monthly. Pt will be seen again in 3 months, consider discontinuing Sema at that time. Discussed pt can also choose to discontinue Sema when she wants. Pt is agreeable to this plan and feels confident she can maintain her weight once weaned off. 10/05/2024: Wt: 125.4 lbs, BMI: 23.69. Plan for patient to receive injection of semaglutide 0.5 mg. Plan to repeat again once in October to taper off in November. Patient happy at goal weight. Discussed seca scan with patient which is all within normal limits including BMI, fat mass, muscle mass, visceral adipose tissue and weight circumference. Patient endorses slightly larger portion sizes, which she knows she has to focus on eating less mindfully. Patient worried about going through the holiday season and would like to maintain some appetite suppression. Plan to follow-up in a month and consider semaglutide 0.25 mg to taper off. 11/14/24: Wt: 124.5 lbs, BMI: 23.52 Patient has been congratulated on reaching a normal BMI and maintaining for the past couple of months. Patient's last injection of semaglutide 0.5 mg was on 10/12. Discussed that because her BMI is normal, it is imperative that we stop medication. Patient agreeable with plan. Plan to continue lifestyle modifications including smaller portions, well-balanced and focusing on protein. Discussed the importance of continuing physical activity with a daily step goal of 8K steps daily in addition to strength training. Patient feels confident to continue these lifestyle modifications independently. Discussed seca scan. Plan to follow-up in 6 months to perform seca scan. 02/10/2025: Wt: 140 lbs, BMI: 26.45 patient previously tapered off of medication when reaching a normal BMI. Last injection of semaglutide 0.5 mg on 10/12/2024. Last weight management follow-up on 11/14/2024. Unfortunately since being without medication, patient has gained 16 pounds, 10 pounds of fat mass and gained 3 pounds of muscle. Patient is frustrated as she was not able to maintain weight with lifestyle. States she is unsure whether she can continue paying for injections as it is getting pricey. Recommend patient restart semaglutide 0.25 mg weekly x 1 month. At follow-up, will consider doing biweekly injections or switching to Contrave. Plan to follow-up in 4 weeks. Patient agreeable with plan. 03/16/2025: Wt: 138.3 lbs, BMI: 26.13 patient currently on semaglutide 0.25 mg weekly injection. Denies any appetite suppression. Denies any side effects. Overall is lost about 2 pounds since last visit. 1 pound of fat loss and 1 pound of muscle loss. Discussed need to increase protein with a goal of at least 80 g daily. Discussed step count of 8 to 10K steps daily. Plan to increase semaglutide 0.5 mg weekly injections. Discussed possibility of beginning Contrave once patient hits goal weight for maintenance. 05/22/2025: Wt: 136.1 lbs, BMI: 25.71 patient currently on semaglutide 0.5 mg weekly injections. Goal weight of 120s. Discussed supply shortage. Discussed option of bridging to Contrave as maintenance medication. Discussed need to increase and focus on high-protein diet. Plan to continue semaglutide while supply in office as well as begin Contrave. Discussed tapering up process. Will send to [facility] today. Plan to follow-up in 6 weeks. #Asthma: Well-managed. Does not regularly need inhaler. Denies shortness of breath. Plan to continue montelukast sodium 10 mg p.o. once daily as well as Ventolin HFA 1 puff as needed every 4 hours. Total time spent is was 30 minutes, with more face to face time This medication is prescribed by or in consultation with a board certified obesity and weight management physician Dr. Chris Willingham The patient will continue exercise regimen with an emphasis on improving/increasing steps to at least 6,000-10,000 steps per day. Increasing cardio and strength training exercises as tolerated to improve weight loss and work on building muscle mass. Patient is committed to smarter eating with calorie counting and mindful eating. Limiting processed foods and carbohydrates and increasing leafy greens and lean proteins as well as fruits into their diet. Patient was counseled on the importance of eating local, organic food when possible. Patient has been counseled regarding effects of GLP/GIP-1 agonists and other FDA approved weight loss medications with regards to a multifactorial approach of weight loss as mentioned above and that the medication alone will not be sufficient to meet patients goals. We discussed holistic medication approach with emphasis on lifestyle modification. Discussed obesity as it increases risk of diabetes, cardiovascular disease, and/or organ damage. We spent a lot of time discussing the relationship between food, exercise, sleep, mental health, and obesity. We discussed the importance of having SECAs done every visit and having accountability done during these visits. That the scale is done to monitor not only weight loss but the body composition during medication management and healthy lifestyle changes. We discussed that if the patient is unable at times to financially afford this scale that we would rather waive the fee and have the scale done than have the patient not have the scale obtained. Will follow up with the patient in 4 weeks time to monitor weight loss. total time was 30 min, greater than 50 % of time was spent on care coordination Case discussed with collaborating physician Camila Willingham who reviewed the assessment and plan. Chart, medications, labs, vital signs reviewed. Dictation was accomplished with the use of [employer] voice recognition software, prone to medical misidentifications and grammatical errors. This is unintentional and the practitioner does try to identify and correct these, but some could still be present. Please do not hesitate to contact practitioner for clarification. All questions answered to patients satisfaction. Patient verbalized understanding of diagnosis and treatments explained. To call sooner prior to next visit it any questions/concerns arise. 05/22/2025 Asthma, exercise induced (ICD-10 - J45.990) Charlotte is a 49 year old female present today for weight management follow up. 07/13/24: Charlotte has made great progress since starting Semaglutide. Weight current: Wt: 124 lbs, 23.43 BMI. Weight last visit (02/10): Wt: 129.3 lbs, BMI: 24.43. SECA reviewed with pt. Pt reports feeling great with no side effects. Discussed continuing current diet and exercise regimen. Continue Semaglutide 0.5mg once monthly. Pt will be seen again in 3 months, consider discontinuing Sema at that time. Discussed pt can also choose to discontinue Sema when she wants. Pt is agreeable to this plan and feels confident she can maintain her weight once weaned off. 10/05/2024: Wt: 125.4 lbs, BMI: 23.69. Plan for patient to receive injection of semaglutide 0.5 mg. Plan to repeat again once in October to taper off in November. Patient happy at goal weight. Discussed seca scan with patient which is all within normal limits including BMI, fat mass, muscle mass, visceral adipose tissue and weight circumference. Patient endorses slightly larger portion sizes, which she knows she has to focus on eating less mindfully. Patient worried about going through the holiday season and would like to maintain some appetite suppression. Plan to follow-up in a month and consider semaglutide 0.25 mg to taper off. 11/14/24: Wt: 124.5 lbs, BMI: 23.52 Patient has been congratulated on reaching a normal BMI and maintaining for the past couple of months. Patient's last injection of semaglutide 0.5 mg was on 10/12. Discussed that because her BMI is normal, it is imperative that we stop medication. Patient agreeable with plan. Plan to continue lifestyle modifications including smaller portions, well-balanced and focusing on protein. Discussed the importance of continuing physical activity with a daily step goal of 8K steps daily in addition to strength training. Patient feels confident to continue these lifestyle modifications independently. Discussed seca scan. Plan to follow-up in 6 months to perform seca scan. 02/10/2025: Wt: 140 lbs, BMI: 26.45 patient previously tapered off of medication when reaching a normal BMI. Last injection of semaglutide 0.5 mg on 10/12/2024. Last weight management follow-up on 11/14/2024. Unfortunately since being without medication, patient has gained 16 pounds, 10 pounds of fat mass and gained 3 pounds of muscle. Patient is frustrated as she was not able to maintain weight with lifestyle. States she is unsure whether she can continue paying for injections as it is getting pricey. Recommend patient restart semaglutide 0.25 mg weekly x 1 month. At follow-up, will consider doing biweekly injections or switching to Contrave. Plan to follow-up in 4 weeks. Patient agreeable with plan. 03/16/2025: Wt: 138.3 lbs, BMI: 26.13 patient currently on semaglutide 0.25 mg weekly injection. Denies any appetite suppression. Denies any side effects. Overall is lost about 2 pounds since last visit. 1 pound of fat loss and 1 pound of muscle loss. Discussed need to increase protein with a goal of at least 80 g daily. Discussed step count of 8 to 10K steps daily. Plan to increase semaglutide 0.5 mg weekly injections. Discussed possibility of beginning Contrave once patient hits goal weight for maintenance. 05/22/2025: Wt: 136.1 lbs, BMI: 25.71 patient currently on semaglutide 0.5 mg weekly injections. Goal weight of 120s. Discussed supply shortage. Discussed option of bridging to Contrave as maintenance medication. Discussed need to increase and focus on high-protein diet. Plan to continue semaglutide while supply in office as well as begin Contrave. Discussed tapering up process. Will send to [facility] today. Plan to follow-up in 6 weeks. #Asthma: Well-managed. Does not regularly need inhaler. Denies shortness of breath. Plan to continue montelukast sodium 10 mg p.o. once daily as well as Ventolin HFA 1 puff as needed every 4 hours. Total time spent is was 30 minutes, with more face to face time This medication is prescribed by or in consultation with a board certified obesity and weight management physician Dr. Chris Willingham The patient will continue exercise regimen with an emphasis on improving/increasing steps to at least 6,000-10,000 steps per day. Increasing cardio and strength training exercises as tolerated to improve weight loss and work on building muscle mass. Patient is committed to smarter eating with calorie counting and mindful eating. Limiting processed foods and carbohydrates and increasing leafy greens and lean proteins as well as fruits into their diet. Patient was counseled on the importance of eating local, organic food when possible. Patient has been counseled regarding effects of GLP/GIP-1 agonists and other FDA approved weight loss medications with regards to a multifactorial approach of weight loss as mentioned above and that the medication alone will not be sufficient to meet patients goals. We discussed holistic medication approach with emphasis on lifestyle modification. Discussed obesity as it increases risk of diabetes, cardiovascular disease, and/or organ damage. We spent a lot of time discussing the relationship between food, exercise, sleep, mental health, and obesity. We discussed the importance of having SECAs done every visit and having accountability done during these visits. That the scale is done to monitor not only weight loss but the body composition during medication management and healthy lifestyle changes. We discussed that if the patient is unable at times to financially afford this scale that we would rather waive the fee and have the scale done than have the patient not have the scale obtained. Will follow up with the patient in 4 weeks time to monitor weight loss. total time was 30 min, greater than 50 % of time was spent on care coordination Case discussed with collaborating physician Camila Willingham who reviewed the assessment and plan. Chart, medications, labs, vital signs reviewed. Dictation was accomplished with the use of [employer] voice recognition software, prone to medical misidentifications and grammatical errors. This is unintentional and the practitioner does try to identify and correct these, but some could still be present. Please do not hesitate to contact practitioner for clarification. All questions answered to patients satisfaction. Patient verbalized understanding of diagnosis and treatments explained. To call sooner prior to next visit it any questions/concerns arise. 03/16/2025 Asthma, exercise induced (ICD-10 - J45.990) Charlotte is a 49 year old female present today for weight management follow up. 07/13/24: Charlotte has made great progress since starting Semaglutide. Weight current: Wt: 124 lbs, 23.43 BMI. Weight last visit (02/10): Wt: 129.3 lbs, BMI: 24.43. SECA reviewed with pt. Pt reports feeling great with no side effects. Discussed continuing current diet and exercise regimen. Continue Semaglutide 0.5mg once monthly. Pt will be seen again in 3 months, consider discontinuing Sema at that time. Discussed pt can also choose to discontinue Sema when she wants. Pt is agreeable to this plan and feels confident she can maintain her weight once weaned off. 10/05/2024: Wt: 125.4 lbs, BMI: 23.69. Plan for patient to receive injection of semaglutide 0.5 mg. Plan to repeat again once in October to taper off in November. Patient happy at goal weight. Discussed seca scan with patient which is all within normal limits including BMI, fat mass, muscle mass, visceral adipose tissue and weight circumference. Patient endorses slightly larger portion sizes, which she knows she has to focus on eating less mindfully. Patient worried about going through the holiday season and would like to maintain some appetite suppression. Plan to follow-up in a month and consider semaglutide 0.25 mg to taper off. 11/14/24: Wt: 124.5 lbs, BMI: 23.52 Patient has been congratulated on reaching a normal BMI and maintaining for the past couple of months. Patient's last injection of semaglutide 0.5 mg was on 10/12. Discussed that because her BMI is normal, it is imperative that we stop medication. Patient agreeable with plan. Plan to continue lifestyle modifications including smaller portions, well-balanced and focusing on protein. Discussed the importance of continuing physical activity with a daily step goal of 8K steps daily in addition to strength training. Patient feels confident to continue these lifestyle modifications independently. Discussed seca scan. Plan to follow-up in 6 months to perform seca scan. 02/10/2025: Wt: 140 lbs, BMI: 26.45 patient previously tapered off of medication when reaching a normal BMI. Last injection of semaglutide 0.5 mg on 10/12/2024. Last weight management follow-up on 11/14/2024. Unfortunately since being without medication, patient has gained 16 pounds, 10 pounds of fat mass and gained 3 pounds of muscle. Patient is frustrated as she was not able to maintain weight with lifestyle. States she is unsure whether she can continue paying for injections as it is getting pricey. Recommend patient restart semaglutide 0.25 mg weekly x 1 month. At follow-up, will consider doing biweekly injections or switching to Contrave. Plan to follow-up in 4 weeks. Patient agreeable with plan. 03/16/2025: Wt: 138.3 lbs, BMI: 26.13 patient currently on semaglutide 0.25 mg weekly injection. Denies any appetite suppression. Denies any side effects. Overall is lost about 2 pounds since last visit. 1 pound of fat loss and 1 pound of muscle loss. Discussed need to increase protein with a goal of at least 80 g daily. Discussed step count of 8 to 10K steps daily. Plan to increase semaglutide 0.5 mg weekly injections. Discussed possibility of beginning Contrave once patient hits goal weight for maintenance. #Asthma: Well-managed. Does not regularly need inhaler. Denies shortness of breath. Plan to continue montelukast sodium 10 mg p.o. once daily as well as Ventolin HFA 1 puff as needed every 4 hours. Total time spent is was 30 minutes, with more face to face time This medication is prescribed by or in consultation with a board certified obesity and weight management physician Dr. Chrsi Willingham The patient will continue exercise regimen with an emphasis on improving/increasing steps to at least 6,000-10,000 steps per day. Increasing cardio and strength training exercises as tolerated to improve weight loss and work on building muscle mass. Patient is committed to smarter eating with calorie counting and mindful eating. Limiting processed foods and carbohydrates and increasing leafy greens and lean proteins as well as fruits into their diet. Patient was counseled on the importance of eating local, organic food when possible. Patient has been counseled regarding effects of GLP/GIP-1 agonists and other FDA approved weight loss medications with regards to a multifactorial approach of weight loss as mentioned above and that the medication alone will not be sufficient to meet patients goals. We discussed holistic medication approach with emphasis on lifestyle modification. Discussed obesity as it increases risk of diabetes, cardiovascular disease, and/or organ damage. We spent a lot of time discussing the relationship between food, exercise, sleep, mental health, and obesity. We discussed the importance of having SECAs done every visit and having accountability done during these visits. That the scale is done to monitor not only weight loss but the body composition during medication management and healthy lifestyle changes. We discussed that if the patient is unable at times to financially afford this scale that we would rather waive the fee and have the scale done than have the patient not have the scale obtained. Will follow up with the patient in 4 weeks time to monitor weight loss. total time was 30 min, greater than 50 % of time was spent on care coordination Case discussed with collaborating physician Camila Willingham who reviewed the assessment and plan. Chart, medications, labs, vital signs reviewed. Dictation was accomplished with the use of [employer] voice recognition software, prone to medical misidentifications and grammatical errors. This is unintentional and the practitioner does try to identify and correct these, but some could still be present. Please do not hesitate to contact practitioner for clarification. All questions answered to patients satisfaction. Patient verbalized understanding of diagnosis and treatments explained. To call sooner prior to next visit it any questions/concerns arise. 02/10/2025 Asthma, exercise induced (ICD-10 - J45.990) Charlotte is a 49 year old female present today for weight management follow up. 07/13/24: Charlotte has made great progress since starting Semaglutide. Weight current: Wt: 124 lbs, 23.43 BMI. Weight last visit (02/10): Wt: 129.3 lbs, BMI: 24.43. SECA reviewed with pt. Pt reports feeling great with no side effects. Discussed continuing current diet and exercise regimen. Continue Semaglutide 0.5mg once monthly. Pt will be seen again in 3 months, consider discontinuing Sema at that time. Discussed pt can also choose to discontinue Sema when she wants. Pt is agreeable to this plan and feels confident she can maintain her weight once weaned off. 10/05/2024: Wt: 125.4 lbs, BMI: 23.69. Plan for patient to receive injection of semaglutide 0.5 mg. Plan to repeat again once in October to taper off in November. Patient happy at goal weight. Discussed seca scan with patient which is all within normal limits including BMI, fat mass, muscle mass, visceral adipose tissue and weight circumference. Patient endorses slightly larger portion sizes, which she knows she has to focus on eating less mindfully. Patient worried about going through the holiday season and would like to maintain some appetite suppression. Plan to follow-up in a month and consider semaglutide 0.25 mg to taper off. 11/14/24: Wt: 124.5 lbs, BMI: 23.52 Patient has been congratulated on reaching a normal BMI and maintaining for the past couple of months. Patient's last injection of semaglutide 0.5 mg was on 10/12. Discussed that because her BMI is normal, it is imperative that we stop medication. Patient agreeable with plan. Plan to continue lifestyle modifications including smaller portions, well-balanced and focusing on protein. Discussed the importance of continuing physical activity with a daily step goal of 8K steps daily in addition to strength training. Patient feels confident to continue these lifestyle modifications independently. Discussed seca scan. Plan to follow-up in 6 months to perform seca scan. 02/10/2025: Wt: 140 lbs, BMI: 26.45 patient previously tapered off of medication when reaching a normal BMI. Last injection of semaglutide 0.5 mg on 10/12/2024. Last weight management follow-up on 11/14/2024. Unfortunately since being without medication, patient has gained 16 pounds, 10 pounds of fat mass and gained 3 pounds of muscle. Patient is frustrated as she was not able to maintain weight with lifestyle. States she is unsure whether she can continue paying for injections as it is getting pricey. Recommend patient restart semaglutide 0.25 mg weekly x 1 month. At follow-up, will consider doing biweekly injections or switching to Contrave. Plan to follow-up in 4 weeks. Patient agreeable with plan. #Asthma: Well-managed. Does not regularly need inhaler. Denies shortness of breath. Plan to continue montelukast sodium 10 mg p.o. once daily as well as Ventolin HFA 1 puff as needed every 4 hours. Total time spent is was 30 minutes, with more face to face time This medication is prescribed by or in consultation with a board certified obesity and weight management physician Dr. Chris Willingham The patient will continue exercise regimen with an emphasis on improving/increasing steps to at least 6,000-10,000 steps per day. Increasing cardio and strength training exercises as tolerated to improve weight loss and work on building muscle mass. Patient is committed to smarter eating with calorie counting and mindful eating. Limiting processed foods and carbohydrates and increasing leafy greens and lean proteins as well as fruits into their diet. Patient was counseled on the importance of eating local, organic food when possible. Patient has been counseled regarding effects of GLP/GIP-1 agonists and other FDA approved weight loss medications with regards to a multifactorial approach of weight loss as mentioned above and that the medication alone will not be sufficient to meet patients goals. We discussed holistic medication approach with emphasis on lifestyle modification. Discussed obesity as it increases risk of diabetes, cardiovascular disease, and/or organ damage. We spent a lot of time discussing the relationship between food, exercise, sleep, mental health, and obesity. We discussed the importance of having SECAs done every visit and having accountability done during these visits. That the scale is done to monitor not only weight loss but the body composition during medication management and healthy lifestyle changes. We discussed that if the patient is unable at times to financially afford this scale that we would rather waive the fee and have the scale done than have the patient not have the scale obtained. Will follow up with the patient in 4 weeks time to monitor weight loss. total time was 30 min, greater than 50 % of time was spent on care coordination Case discussed with collaborating physician Camila Willingham who reviewed the assessment and plan. Chart, medications, labs, vital signs reviewed. Dictation was accomplished with the use of [employer] voice recognition software, prone to medical misidentifications and grammatical errors. This is unintentional and the practitioner does try to identify and correct these, but some could still be present. Please do not hesitate to contact practitioner for clarification. All questions answered to patients satisfaction. Patient verbalized understanding of diagnosis and treatments explained. To call sooner prior to next visit it any questions/concerns arise. 03/16/2025 Nutritional counseling (ICD-10 - Z71.3) Charlotte is a 49 year old female present today for weight management follow up. 07/13/24: Charlotte has made great progress since starting Semaglutide. Weight current: Wt: 124 lbs, 23.43 BMI. Weight last visit (02/10): Wt: 129.3 lbs, BMI: 24.43. SECA reviewed with pt. Pt reports feeling great with no side effects. Discussed continuing current diet and exercise regimen. Continue Semaglutide 0.5mg once monthly. Pt will be seen again in 3 months, consider discontinuing Sema at that time. Discussed pt can also choose to discontinue Sema when she wants. Pt is agreeable to this plan and feels confident she can maintain her weight once weaned off. 10/05/2024: Wt: 125.4 lbs, BMI: 23.69. Plan for patient to receive injection of semaglutide 0.5 mg. Plan to repeat again once in October to taper off in November. Patient happy at goal weight. Discussed seca scan with patient which is all within normal limits including BMI, fat mass, muscle mass, visceral adipose tissue and weight circumference. Patient endorses slightly larger portion sizes, which she knows she has to focus on eating less mindfully. Patient worried about going through the holiday season and would like to maintain some appetite suppression. Plan to follow-up in a month and consider semaglutide 0.25 mg to taper off. 11/14/24: Wt: 124.5 lbs, BMI: 23.52 Patient has been congratulated on reaching a normal BMI and maintaining for the past couple of months. Patient's last injection of semaglutide 0.5 mg was on 10/12. Discussed that because her BMI is normal, it is imperative that we stop medication. Patient agreeable with plan. Plan to continue lifestyle modifications including smaller portions, well-balanced and focusing on protein. Discussed the importance of continuing physical activity with a daily step goal of 8K steps daily in addition to strength training. Patient feels confident to continue these lifestyle modifications independently. Discussed seca scan. Plan to follow-up in 6 months to perform seca scan. 02/10/2025: Wt: 140 lbs, BMI: 26.45 patient previously tapered off of medication when reaching a normal BMI. Last injection of semaglutide 0.5 mg on 10/12/2024. Last weight management follow-up on 11/14/2024. Unfortunately since being without medication, patient has gained 16 pounds, 10 pounds of fat mass and gained 3 pounds of muscle. Patient is frustrated as she was not able to maintain weight with lifestyle. States she is unsure whether she can continue paying for injections as it is getting pricey. Recommend patient restart semaglutide 0.25 mg weekly x 1 month. At follow-up, will consider doing biweekly injections or switching to Contrave. Plan to follow-up in 4 weeks. Patient agreeable with plan. 03/16/2025: Wt: 138.3 lbs, BMI: 26.13 patient currently on semaglutide 0.25 mg weekly injection. Denies any appetite suppression. Denies any side effects. Overall is lost about 2 pounds since last visit. 1 pound of fat loss and 1 pound of muscle loss. Discussed need to increase protein with a goal of at least 80 g daily. Discussed step count of 8 to 10K steps daily. Plan to increase semaglutide 0.5 mg weekly injections. Discussed possibility of beginning Contrave once patient hits goal weight for maintenance. #Asthma: Well-managed. Does not regularly need inhaler. Denies shortness of breath. Plan to continue montelukast sodium 10 mg p.o. once daily as well as Ventolin HFA 1 puff as needed every 4 hours. Total time spent is was 30 minutes, with more face to face time This medication is prescribed by or in consultation with a board certified obesity and weight management physician Dr. Chris Willingham The patient will continue exercise regimen with an emphasis on improving/increasing steps to at least 6,000-10,000 steps per day. Increasing cardio and strength training exercises as tolerated to improve weight loss and work on building muscle mass. Patient is committed to smarter eating with calorie counting and mindful eating. Limiting processed foods and carbohydrates and increasing leafy greens and lean proteins as well as fruits into their diet. Patient was counseled on the importance of eating local, organic food when possible. Patient has been counseled regarding effects of GLP/GIP-1 agonists and other FDA approved weight loss medications with regards to a multifactorial approach of weight loss as mentioned above and that the medication alone will not be sufficient to meet patients goals. We discussed holistic medication approach with emphasis on lifestyle modification. Discussed obesity as it increases risk of diabetes, cardiovascular disease, and/or organ damage. We spent a lot of time discussing the relationship between food, exercise, sleep, mental health, and obesity. We discussed the importance of having SECAs done every visit and having accountability done during these visits. That the scale is done to monitor not only weight loss but the body composition during medication management and healthy lifestyle changes. We discussed that if the patient is unable at times to financially afford this scale that we would rather waive the fee and have the scale done than have the patient not have the scale obtained. Will follow up with the patient in 4 weeks time to monitor weight loss. total time was 30 min, greater than 50 % of time was spent on care coordination Case discussed with collaborating physician Camila Willingham who reviewed the assessment and plan. Chart, medications, labs, vital signs reviewed. Dictation was accomplished with the use of [employer] voice recognition software, prone to medical misidentifications and grammatical errors. This is unintentional and the practitioner does try to identify and correct these, but some could still be present. Please do not hesitate to contact practitioner for clarification. All questions answered to patients satisfaction. Patient verbalized understanding of diagnosis and treatments explained. To call sooner prior to next visit it any questions/concerns arise. 05/22/2025 Nutritional counseling (ICD-10 - Z71.3) Charlotte is a 49 year old female present today for weight management follow up. 07/13/24: Charlotte has made great progress since starting Semaglutide. Weight current: Wt: 124 lbs, 23.43 BMI. Weight last visit (02/10): Wt: 129.3 lbs, BMI: 24.43. SECA reviewed with pt. Pt reports feeling great with no side effects. Discussed continuing current diet and exercise regimen. Continue Semaglutide 0.5mg once monthly. Pt will be seen again in 3 months, consider discontinuing Sema at that time. Discussed pt can also choose to discontinue Sema when she wants. Pt is agreeable to this plan and feels confident she can maintain her weight once weaned off. 10/05/2024: Wt: 125.4 lbs, BMI: 23.69. Plan for patient to receive injection of semaglutide 0.5 mg. Plan to repeat again once in October to taper off in November. Patient happy at goal weight. Discussed seca scan with patient which is all within normal limits including BMI, fat mass, muscle mass, visceral adipose tissue and weight circumference. Patient endorses slightly larger portion sizes, which she knows she has to focus on eating less mindfully. Patient worried about going through the holiday season and would like to maintain some appetite suppression. Plan to follow-up in a month and consider semaglutide 0.25 mg to taper off. 11/14/24: Wt: 124.5 lbs, BMI: 23.52 Patient has been congratulated on reaching a normal BMI and maintaining for the past couple of months. Patient's last injection of semaglutide 0.5 mg was on 10/12. Discussed that because her BMI is normal, it is imperative that we stop medication. Patient agreeable with plan. Plan to continue lifestyle modifications including smaller portions, well-balanced and focusing on protein. Discussed the importance of continuing physical activity with a daily step goal of 8K steps daily in addition to strength training. Patient feels confident to continue these lifestyle modifications independently. Discussed seca scan. Plan to follow-up in 6 months to perform seca scan. 02/10/2025: Wt: 140 lbs, BMI: 26.45 patient previously tapered off of medication when reaching a normal BMI. Last injection of semaglutide 0.5 mg on 10/12/2024. Last weight management follow-up on 11/14/2024. Unfortunately since being without medication, patient has gained 16 pounds, 10 pounds of fat mass and gained 3 pounds of muscle. Patient is frustrated as she was not able to maintain weight with lifestyle. States she is unsure whether she can continue paying for injections as it is getting pricey. Recommend patient restart semaglutide 0.25 mg weekly x 1 month. At follow-up, will consider doing biweekly injections or switching to Contrave. Plan to follow-up in 4 weeks. Patient agreeable with plan. 03/16/2025: Wt: 138.3 lbs, BMI: 26.13 patient currently on semaglutide 0.25 mg weekly injection. Denies any appetite suppression. Denies any side effects. Overall is lost about 2 pounds since last visit. 1 pound of fat loss and 1 pound of muscle loss. Discussed need to increase protein with a goal of at least 80 g daily. Discussed step count of 8 to 10K steps daily. Plan to increase semaglutide 0.5 mg weekly injections. Discussed possibility of beginning Contrave once patient hits goal weight for maintenance. 05/22/2025: Wt: 136.1 lbs, BMI: 25.71 patient currently on semaglutide 0.5 mg weekly injections. Goal weight of 120s. Discussed supply shortage. Discussed option of bridging to Contrave as maintenance medication. Discussed need to increase and focus on high-protein diet. Plan to continue semaglutide while supply in office as well as begin Contrave. Discussed tapering up process. Will send to [facility] today. Plan to follow-up in 6 weeks. #Asthma: Well-managed. Does not regularly need inhaler. Denies shortness of breath. Plan to continue montelukast sodium 10 mg p.o. once daily as well as Ventolin HFA 1 puff as needed every 4 hours. Total time spent is was 30 minutes, with more face to face time This medication is prescribed by or in consultation with a board certified obesity and weight management physician Dr. Chris Willingham The patient will continue exercise regimen with an emphasis on improving/increasing steps to at least 6,000-10,000 steps per day. Increasing cardio and strength training exercises as tolerated to improve weight loss and work on building muscle mass. Patient is committed to smarter eating with calorie counting and mindful eating. Limiting processed foods and carbohydrates and increasing leafy greens and lean proteins as well as fruits into their diet. Patient was counseled on the importance of eating local, organic food when possible. Patient has been counseled regarding effects of GLP/GIP-1 agonists and other FDA approved weight loss medications with regards to a multifactorial approach of weight loss as mentioned above and that the medication alone will not be sufficient to meet patients goals. We discussed holistic medication approach with emphasis on lifestyle modification. Discussed obesity as it increases risk of diabetes, cardiovascular disease, and/or organ damage. We spent a lot of time discussing the relationship between food, exercise, sleep, mental health, and obesity. We discussed the importance of having SECAs done every visit and having accountability done during these visits. That the scale is done to monitor not only weight loss but the body composition during medication management and healthy lifestyle changes. We discussed that if the patient is unable at times to financially afford this scale that we would rather waive the fee and have the scale done than have the patient not have the scale obtained. Will follow up with the patient in 4 weeks time to monitor weight loss. total time was 30 min, greater than 50 % of time was spent on care coordination Case discussed with collaborating physician Camila Willingham who reviewed the assessment and plan. Chart, medications, labs, vital signs reviewed. Dictation was accomplished with the use of [employer] voice recognition software, prone to medical misidentifications and grammatical errors. This is unintentional and the practitioner does try to identify and correct these, but some could still be present. Please do not hesitate to contact practitioner for clarification. All questions answered to patients satisfaction. Patient verbalized understanding of diagnosis and treatments explained. To call sooner prior to next visit it any questions/concerns arise. 05/22/2025 Encounter for examination of blood pressure without abnormal findings (ICD-10 - Z01.30) Charlotte is a 49 year old female present today for weight management follow up. 07/13/24: Charlotte has made great progress since starting Semaglutide. Weight current: Wt: 124 lbs, 23.43 BMI. Weight last visit (02/10): Wt: 129.3 lbs, BMI: 24.43. SECA reviewed with pt. Pt reports feeling great with no side effects. Discussed continuing current diet and exercise regimen. Continue Semaglutide 0.5mg once monthly. Pt will be seen again in 3 months, consider discontinuing Sema at that time. Discussed pt can also choose to discontinue Sema when she wants. Pt is agreeable to this plan and feels confident she can maintain her weight once weaned off. 10/05/2024: Wt: 125.4 lbs, BMI: 23.69. Plan for patient to receive injection of semaglutide 0.5 mg. Plan to repeat again once in October to taper off in November. Patient happy at goal weight. Discussed seca scan with patient which is all within normal limits including BMI, fat mass, muscle mass, visceral adipose tissue and weight circumference. Patient endorses slightly larger portion sizes, which she knows she has to focus on eating less mindfully. Patient worried about going through the holiday season and would like to maintain some appetite suppression. Plan to follow-up in a month and consider semaglutide 0.25 mg to taper off. 11/14/24: Wt: 124.5 lbs, BMI: 23.52 Patient has been congratulated on reaching a normal BMI and maintaining for the past couple of months. Patient's last injection of semaglutide 0.5 mg was on 10/12. Discussed that because her BMI is normal, it is imperative that we stop medication. Patient agreeable with plan. Plan to continue lifestyle modifications including smaller portions, well-balanced and focusing on protein. Discussed the importance of continuing physical activity with a daily step goal of 8K steps daily in addition to strength training. Patient feels confident to continue these lifestyle modifications independently. Discussed seca scan. Plan to follow-up in 6 months to perform seca scan. 02/10/2025: Wt: 140 lbs, BMI: 26.45 patient previously tapered off of medication when reaching a normal BMI. Last injection of semaglutide 0.5 mg on 10/12/2024. Last weight management follow-up on 11/14/2024. Unfortunately since being without medication, patient has gained 16 pounds, 10 pounds of fat mass and gained 3 pounds of muscle. Patient is frustrated as she was not able to maintain weight with lifestyle. States she is unsure whether she can continue paying for injections as it is getting pricey. Recommend patient restart semaglutide 0.25 mg weekly x 1 month. At follow-up, will consider doing biweekly injections or switching to Contrave. Plan to follow-up in 4 weeks. Patient agreeable with plan. 03/16/2025: Wt: 138.3 lbs, BMI: 26.13 patient currently on semaglutide 0.25 mg weekly injection. Denies any appetite suppression. Denies any side effects. Overall is lost about 2 pounds since last visit. 1 pound of fat loss and 1 pound of muscle loss. Discussed need to increase protein with a goal of at least 80 g daily. Discussed step count of 8 to 10K steps daily. Plan to increase semaglutide 0.5 mg weekly injections. Discussed possibility of beginning Contrave once patient hits goal weight for maintenance. 05/22/2025: Wt: 136.1 lbs, BMI: 25.71 patient currently on semaglutide 0.5 mg weekly injections. Goal weight of 120s. Discussed supply shortage. Discussed option of bridging to Contrave as maintenance medication. Discussed need to increase and focus on high-protein diet. Plan to continue semaglutide while supply in office as well as begin Contrave. Discussed tapering up process. Will send to [facility] today. Plan to follow-up in 6 weeks. #Asthma: Well-managed. Does not regularly need inhaler. Denies shortness of breath. Plan to continue montelukast sodium 10 mg p.o. once daily as well as Ventolin HFA 1 puff as needed every 4 hours. Total time spent is was 30 minutes, with more face to face time This medication is prescribed by or in consultation with a board certified obesity and weight management physician Dr. Chris Willingham The patient will continue exercise regimen with an emphasis on improving/increasing steps to at least 6,000-10,000 steps per day. Increasing cardio and strength training exercises as tolerated to improve weight loss and work on building muscle mass. Patient is committed to smarter eating with calorie counting and mindful eating. Limiting processed foods and carbohydrates and increasing leafy greens and lean proteins as well as fruits into their diet. Patient was counseled on the importance of eating local, organic food when possible. Patient has been counseled regarding effects of GLP/GIP-1 agonists and other FDA approved weight loss medications with regards to a multifactorial approach of weight loss as mentioned above and that the medication alone will not be sufficient to meet patients goals. We discussed holistic medication approach with emphasis on lifestyle modification. Discussed obesity as it increases risk of diabetes, cardiovascular disease, and/or organ damage. We spent a lot of time discussing the relationship between food, exercise, sleep, mental health, and obesity. We discussed the importance of having SECAs done every visit and having accountability done during these visits. That the scale is done to monitor not only weight loss but the body composition during medication management and healthy lifestyle changes. We discussed that if the patient is unable at times to financially afford this scale that we would rather waive the fee and have the scale done than have the patient not have the scale obtained. Will follow up with the patient in 4 weeks time to monitor weight loss. total time was 30 min, greater than 50 % of time was spent on care coordination Case discussed with collaborating physician Camila Willingham who reviewed the assessment and plan. Chart, medications, labs, vital signs reviewed. Dictation was accomplished with the use of [employer] voice recognition software, prone to medical misidentifications and grammatical errors. This is unintentional and the practitioner does try to identify and correct these, but some could still be present. Please do not hesitate to contact practitioner for clarification. All questions answered to patients satisfaction. Patient verbalized understanding of diagnosis and treatments explained. To call sooner prior to next visit it any questions/concerns arise. Plan Of Treatment Pending Test Test Name Order Date LIPID PANEL, STANDARD 04/29/2023 HEMOGLOBIN A1c 04/29/2023 INSULIN 04/29/2023 Insurance Providers Payer Name Payer Address Payer Phone Subscriber Number Group Number Insured Name Patient Relationship to Insured Coverage Start Date Coverage End Date [facility] [address] [place] [address] [id number] Charlotte Rois Self - patient is the insured 2 Medications Administered Medication Instructions Date of Administration Dosage Notes Semaglutide 05/27/2023 Semaglutide 06/03/2023 lot # [id number] 0.25mg Semaglutide 06/11/2023 0.25 mg L tricep SQ Semaglutide 06/17/2023 sema 0.25mg Semaglutide 06/23/2023 0.5 mg LRQ SQ Semaglutide 07/01/2023 sema 0.5mg Semaglutide 07/09/2023 0.5 mg LLQ SQ Semaglutide 07/15/2023 0.5 mg LLQ SQ Semaglutide 07/22/2023 sema 0.5mg Semaglutide 07/29/2023 lot#[id number] 0.5mg Semaglutide 08/05/2023 sema 0.5mg Semaglutide 08/17/2023 lot# [id number] 0.5mg Semaglutide 08/31/2023 0.5 sema 0.5mg Semaglutide 09/16/2023 0.5 mg LLQ SQ Semaglutide 10/01/2023 0.5 mg LRQ SQ Semaglutide 10/07/2023 Semaglutide 10/15/2023 0.5 mg LLQ SQ Semaglutide 10/22/2023 0.5 mg LLQ SQ Semaglutide 10/29/2023 Semaglutide 11/05/2023 0.5 mg LLQ SQ Semaglutide 11/12/2023 0.5 mg LLQ SQ Semaglutide 11/26/2023 0.5 mg Semaglutide 12/10/2023 0.5 mL Semaglutide 12/24/2023 0.50 mL Semaglutide 01/07/2024 0.5 mg LLQ SQ Semaglutide 01/28/2024 0.5 mg Semaglutide 02/11/2024 0.5 mg Semaglutide 03/15/2024 0.5 mg Semaglutide 04/13/2024 0.5 mg Semaglutide 04/20/2024 0.5 mg Semaglutide 05/11/2024 0.5 mg Semaglutide 05/31/2024 0.5 mg Semaglutide 06/29/2024 .5 mg Semaglutide 07/13/2024 0.5 mg LLQ SQ Semaglutide 08/13/2024 .5 mg Semaglutide 08/27/2024 0.5 mg Semaglutide 09/09/2024 0.5 mg Semaglutide 10/05/2024 .5 mg Semaglutide 10/12/2024 0.5 mg Semaglutide 02/10/2025 .25 mg Semaglutide 02/18/2025 0.25 Semaglutide 02/23/2025 0.25 mg Semaglutide 03/03/2025 0.25 mg Semaglutide 03/11/2025 0.25 Semaglutide 03/16/2025 .5 mg Semaglutide 03/24/2025 .5 mg Semaglutide 03/31/2025 0.5 mg Semaglutide 04/07/2025 .5 mg Semaglutide 04/14/2025 .5 mg Semaglutide 04/21/2025 .5 mg Semaglutide 04/28/2025 0.5 mg Semaglutide 05/05/2025 0.5 mg Semaglutide 05/12/2025 0.5 mg Semaglutide 05/18/2025 .5 mg Semaglutide 05/26/2025 0.5 mg Semaglutide 06/02/2025 .5 mg Semaglutide 06/09/2025 0.5 mg lot# [id number] Semaglutide 06/16/2025 .5 mg Semaglutide 06/23/2025 0.5 mg lot# [id number] 0.5mg Semaglutide 06/30/2025 0.5 mg Medical (General) History Medical History History ICD Code asthma angina weight loss/gain hemorrhoids headache anxiety depression seasonal allergies Surgical History Surgery Date(Month/Year) hysterectomy
--- OUTSIDE RECORDS SUMMARY | 2025-08-30 08:50 | XMS_ITS | Clinical Summary ---
Author Organization [facility] Address [address] [place] [address] Care Team Providers Care Electro Mechanical Designer Name Role Phone Bridger Craven MD Primary Care Provider [phone] Allergies Active Allergy Reactions Criticality Noted Date Comments Animal Dander 07/29/2024 Gramineae Pollens 07/29/2024 Seasonal 07/29/2024 Medications Medication Sig Dispensed Refills Start Date End Date Status topiramate (Topamax) 50 MG tablet Take 1 tablet (50 mg total) by mouth 2 (two) times a day. 0 Active EPINEPHrine 0.3 MG/0.3ML SOSY Inject as directed. 0 Active montelukast (SINGULAIR) 10 MG tablet Take 1 tablet (10 mg total) by mouth every night at bedtime. 0 Active cyclobenzaprine (FLEXERIL) 10 MG tablet Take 1 tablet (10 mg total) by mouth 3 (three) times a day as needed for muscle spasms. 0 Active ibuprofen 600 MG tablet Take 1 tablet (600 mg total) by mouth every 6 (six) hours as needed for pain. 0 Active Plecanatide (Trulance) 3 MG TABS Take by mouth. 0 Active Albuterol Sulfate 108 (90 Base) MCG/ACT AEPB Inhale into the lungs. 0 Active estradiol (VIVELLE-DOT) 0.1 MG/24HR Place 1 patch onto the skin 2 (two) times a week. 0 Active Social History Tobacco Use Types Packs/Day Years Used Date Smoking Tobacco: Never Assessed Tobacco Cessation:Counseling Given: Not Answered Sex and Gender Information Value Date Recorded Sex Assigned at Not on file Gender Identity Not on file Sexual Orientation Not on file Job Start Date Occupation Industry Not on file Not on file Not on file Last Filed Vital Signs Vital Sign Reading Time Taken Comments Blood Pressure 98/73 07/29/2024 2:00 PM EDT Pulse 84 07/29/2024 2:00 PM EDT Temperature 36.9 C (98.4 F) 07/29/2024 2:00 PM EDT Respiratory Rate - - Oxygen Saturation 98% 07/29/2024 2:00 PM EDT Inhaled Oxygen Concentration - - Weight 55.8 kg (123 lb) 07/29/2024 2:00 PM EDT Height 157.5 cm (5' 2 ) 07/29/2024 2:00 PM EDT Body Mass Index 22.5 07/29/2024 2:00 PM EDT Plan of Treatment Health Maintenance Due Date Last Done Comments Hepatitis C Screening 1974 Depression Screening 1986 Preventative Health Evaluation 1992 Cervical Cancer Screening (Pap Smear) 1995 DTap / Tdap / Td (1 - Tdap) 06/12/1998 06/11/1998 Hepatitis B Vaccines (3 of 3 - 19+ 3-dose series) 10/20/1998 08/25/1998, 07/24/1998, 10/24/1995 Colon Cancer Screening (Colonoscopy) 2019 Breast Cancer Screening (Mammogram) 2024 Shingrix-Zoster Vaccine (1 o f 2) 2024 COVID-19 Vaccine (3 - 2024-2 6 season) 2025 05/08/2021, 04/17/2021 Influenza Vaccine (#1) 2025 Pneumococcal Vaccine Aged Out 03/09/2024 No long er eligible based on patient's age to complete this topic RSV Ped < 20 months Aged Out No longe r eligible based on patient's age to complete this topic Care Teams Electro Mechanical Designer Relationship Specialty Start Date End Date Bridger Craven MD PCP - General Internal Medicine 06/23/24
--- OUTSIDE RECORDS SUMMARY | 2025-08-30 08:50 | XMS_ITS | Clinical Summary ---
Author Organization [facility] Address [address] [place] [address] Care Team Providers Care Cpht Name Role Phone Unavailable Primary Care Provider Unavailabl e Social History Tobacco Use Types Packs/Day Years Used Date Smoking Tobacco: Never Assessed Comments Unknown Sex and Gender Information Value Date Recorded Sex Assigned at Not on file Legal Sex Female 9:27 AM EDT Gender Identity Not on file Sexual Orientation Not on file Plan of Treatment Health Maintenance Due Date Last Done Comments Hepatitis C Screening 1974 Pap Smear 1990 DTaP/Tdap/Td (1 - Tdap) 1992 Hep B (1 of 3 - 19+ 3-dose series) 1993 Mammogram/Breast Imaging 2014 Pneumococcal 50+ years (1 of 1 - PCV) 2024 Zoster (Shingrix) (1 of 2) 2024 COVID-19 Vaccine ( - 2024-2 6 season) 2025 Influenza (#1) 2025 HPV Vaccine (No Doses Required) Completed Hep A Aged Out No longer eligi ble based on patient's age to complete this topic Hib Aged Out No longer eligi ble based on patient's age to complete this topic Meningococcal ACWY Aged Out No longer eligible based on patient's age to complete this topic
--- OUTSIDE RECORDS SUMMARY | 2025-08-30 08:50 | XMS_ITS | Clinical Summary ---
Author Organization [facility] [place] [address] Phone Care Team Providers Care Sports Physical Therapist Name Role Phone Ralph Ocampo MD Primary Care Provider [phone] Allergies Active Allergy Reactions Criticality Noted Date Comments Animal Dander 07/29/2024 Cockroach Unknown 02/13/2025 Dog Dander 09/08/2022 Grass Pollen 09/08/2022 Grass Pollen-Red Top, Standard 07/29 House Dust Hives 02/13/2025 Tree And Shrub Pollen Hives 02/13/2025 Medications albuterol HFA (Ventolin HFA) 90 mcg/actuation inhaler Inhale 2 puffs by mouth every 6 (six) hours if needed for wheezing. 3 each 3 5 026 Active SUMAtriptan (IMITREX) 25 mg tablet Take 1 tablet (25 mg total) by mouth 1 (one) time if needed for migraine. May repeat dose once in 2 hours if no relief. Do not exceed 2 doses in 24 hours. 9 tablet 3 5 026 Active topiramate (TOPAMAX) 50 mg tablet Take 1 tablet (50 mg total) by mouth 2 (two) times a day. 180 tablet 1 5 Active EPINEPHrine (EpiPen 2-Reuben) 0.3 mg/0.3 mL injection Inject 0.3 mL (0.3 mg total) into the thigh if needed for anaphylaxis . 1 each 1 5 Active montelukast (SINGULAIR) 10 mg tablet Take 1 tablet (10 mg total) by mouth at bedtime. 90 each 1 5 025 Active plecanatide (Trulance) 3 mg tablet Take 1 tablet (3 mg total) by mouth 1 (one) time each day. 90 tablet 1 5 Active ibuprofen (ADVIL,MOTRIN) 600 mg tabletIndicatio ns:Dorsalgia, unspecified TAKE 1 TABLET BY MOUTH EVERY 6 HOURS NEEDED FOR PAIN 60 tablet 5 5 Active estradioL (VIVELLE-DOT) 0.1 mg/[address] 1 patch on the skin 2 (two) times a week. 24 patch 5 Active cyclobenzaprine (FLEXERIL) 10 mg tablet TAKE 0.5-1 TABS BY MOUTH 2 TIMES A DAY IF NEEDED FOR MUSCLE SPASMS. 30 tablet 5 Active cyclobenzaprine (FLEXERIL) 10 mg tablet Take 0.5-1 tablets (5-10 mg total) by mouth 2 (two) times a day if needed for muscle spasms. 30 tablet 1 5 025 Discontinued Active Problems Problem Noted Date Diagnosed Date Ganglion cyst of dorsum of right wrist 3 Overview (07/28/2024): Had aspiration 11/04/2023 Dizziness 10/16/2022 Overview (07/28/2024): Last Assessment & Plan: Patient is complaining of positional dizziness. I suspect that this is mild orthostasis even though are not seen on exam. She is taking an [id number] diuretic I asked her to stop it for a week and see if that improves her symptoms Palpitations 10/16/2022 Overview (07/28/2024): Last Assessment & Plan: Patient is complaining about palpitations that occur at night this may be A. fib in the setting of untreated sleep apnea. Patient will have a 48-hour Holter Swelling 10/16/2022 Overview (07/28/2024): Last Assessment & Plan: Patient complains of swelling diffusely which I suspect is secondary to her use of estrogens since she has had a recent oophorectomy she has been placed on estrogen patch. We will do an echo to make sure that there is no progressive right heart failure is been over a year since she is had an echo but I doubt that this is an indication for swelling I suspect that the estrogens Dyspnea 10/13/2022 Overview (07/28/2024): Last Assessment & Plan: Patient still complains of dyspnea and so far I have not find an etiology for her. There is no indication of subclinical PEs from estrogen though that still a possibility though her walk test for 6 minutes did not show desaturation. And she has had no history of DVT. There is no evidence of diastolic dysfunction. No evidence of ischemia. There is supposedly evidence of exercise-induced reactive airway disease. She is been given an rescue inhaler and I am not sure how she supposed to be using this to control that. Does not make much sense with her day-to-day dyspnea. She is not anemic. She not orthostatic. She stopped her diuretic for short period time to see if would help the dizziness but she did not like the way her hand swelled so she went back on it and the hand swelling I think is due to estrogen. We will send her for a cardiopulmonary exercise test this hopefully will separate whether there is a cardiac or pulmonary source for dyspnea. If her VO2 max is low this may be an issue deconditioning. If her pulmonary issues are there then she needs a full repeat pulmonary evaluation. So have her back in 4 months this could take a while to get the CPET done. By then her sleep issues should be sorted out also. Asthma 05/05/2022 IBS (irritable bowel syndrome) 05/05/2022 Insomnia 05/05/2022 Migraine 05/05/2022 Encounters Date Type Department Care Team Description 08/16/2025 2:30 PM EDT Office Visit [facility] [address] [address] Brina Hill CNM Prolapse of female pelvic organs (Primary Dx) 07/26/2025 8:45 AM EDT Office Visit Internal Medicine - [facility] [address] [place] [phone] Eleazar Ojeda PA Dizziness (Primary Dx); Chronic migraine without aura without status migrainosus, not intractable; Mild intermittent asthma without complication 06/19/2025 Telephone Obst[facility]s [facility] [address] [place] [id number] CarmelaEstefany strickland 06/02/2025 7:01 AM EDT - 06/02/2025 11:59 PM EDT Hospital Encounter [facility] CT Scan [address] [place] [address] Dizziness Discharge Disposition: Home or Self Care from Last 3 Months Immunizations Immunization Administration Dates Next Due Pfizer SARS-CoV-2 COVID-19, mRNA, LNP-S, preservative free 05/08/2021,04/17/2021 Pneumococcal conjugate 20 va lent (Prevnar 20, PCV 20) 2mo and older 03/09/2024 Surgical History Surgery Date Site/Laterality Comments HYSTERECTOMY PROCEDURE:HYSTERECTOMY ENDOMETRIAL ABLATION Medical History Medical History Date Comments Palpitations DX:Palpitations Ganglion cyst of wrist, right DX :Ganglion cyst of wrist, right IBS (irritable bowel syndrome) D X:IBS (irritable bowel syndrome) Swelling DX:Swelling Migraine DX:Migraine Asthma DX:Asthma Insomnia DX:Insomnia Anemia Arthritis CTS (carpal tunnel syndrome) Endometriosis Polycystic ovary syndrome Family History Medical History Relation Name Comments Diabetes Brother Laci Kaur Arthritis Mother Judywanda Kaur Diabetes Mother Judywanda Kaur Hypertension Mother Judy Kaur Breast cancer Neg Hx Relation Name Status Comments Brother Laci Kaur Mother Judywanda Mooren Social History Tobacco Use Types Packs/Day Years Used Date Smoking Tobacco: Never Smokeless Tobacco: Never Tobacco Cessation:Counseling Given: Not Answered Alcohol Use Standard Drinks/Week Comments Never 0 (1 standard drink = 0.6 oz pur e alcohol) Housing Instability Answer Date Recorde d Are you worried that in the next 2 months you may not have stable housing? No 11/16/2024 Food Access & Nutrition Answer Date Rec orded Do you have access to a vari ety of food including fruits and vegetables? Yes 11/16/2024 Access to Healthcare Answer Date Record ed Within the last 3 months, ho w many times did you visit the emergency department for your medical care? 0 11/16/2024 Health Literacy Answer Date Recorded How often do you need to hav e someone help you when you read instructions, pamphlets, or other written material from your doctor or pharmacy? Never 11/16/2024 Caregiver: How often do you need to have someone help you when you read instructions, pamphlets, or other written material from your doctor or pharmacy? Not on file 11/16/2024 Financial Risk Answer Date Recorded How hard is it for you to pa y for the very basics like food, housing, medical care, and air conditioning / heating? Not very hard 11/16/2024 Transportation Answer Date Recorded Has the lack of transportati on kept you from meetings, work, or from getting things needed for daily living? No Has the lack of transportati on kept you from medical appointments or from getting medications? No 11/16/2024 Social Isolation Answer Date Recorded How often do you feel lonely or isolated from th ose around you? Never 11/16/2024 Food Risk Answer Date Recorded Within the past 12 months we worried whether our food would run out before we got money to buy more. Never true 11/16/2024 Within the past 12 months th e food we bought just didn't last and we didn't have money to get more. Never true 11/16/2024 Dependent Care Answer Date Recorded Do you need help finding or paying for care for your loved ones. For example, child therapist or elderly care for an older adult? No 11/16/2024 Education Answer Date Recorded Do you think completing more education or training, like finishing a GED, going to college, or learning a trade, would be helpful for you? N/A 11/16/2024 Employment and Income Answer Date Recor ded During the last four weeks, have you been actively looking for work? No 11/16/2024 Living Situation Answer Date Recorded What is your living situation? Unrecognized valu e 11/16/2024 Interpersonal Safety Answer Date Record ed Physical Abuse Unrecognized value 10/28/2024 Verbal Abuse Unrecognized value 10/28/2024 Comments No Sex and Gender Information Value Date Recorded Sex Assigned at Female 10/28/2024 7:17 AM EST Legal Sex Female 1:35 PM EST Gender Identity Female 10/28/2024 7:17 AM EST Sexual Orientation Straight 10/28/2024 7: 17 AM EST Occupation Industry Job Start Date Job End Date Not on file Not on file Not on file Not on file Obstetrics History * This document contains information received from the source organization and may not represent a complete record from that organization. Para Term AB IAB SAB Ectopic Multiple Livin g Live Births 5 3 3 3 3 Date Outcome GA Total Labor Labor/2nd/3rd Weight Sex Type Anes PTL Latricia A1 A5 Name Clin Term Vag-S pont Living Term Vag-S pont Living Term Vag-S pont Living Last Filed Vital Signs Vital Sign Reading Time Taken Comments Blood Pressure 116/86 08/16/2025 2:17 PM EDT Pulse 71 08/16/2025 2:17 PM EDT Temperature 36.8 C (98.2 F) 02/08/2025 3:22 PM EDT Respiratory Rate 16 07/26/2025 8:30 AM EDT Oxygen Saturation 98% 02/08/2025 3:22 PM EDT Inhaled Oxygen Concentration - - Weight 61.2 kg (135 lb) 08/16/2025 2:17 PM EDT Height 157.5 cm (5' 2 ) 02/27/2025 7:11 AM EDT Body Mass Index 24.69 02/27/2025 7:11 AM EDT Plan of Treatment Upcoming Encounters Date Type Department Care Team (Late st Contact Info) Description 11/08/2025 1:00 PM EST Office Visit Urogynecology [address] [address] Yuni Rodas MD [address] [place] [address] [address] [place] [address] Health Maintenance Due Date Last Done Comments Colorectal Cancer Screening: Colonoscopy 1975 Hepatitis B Vaccines (3 of 3 - 19+ 3-dose series) 10/20/1998 08/25/1998, 07/24/1998, 10/24/1995 RSV Immunization Adult Patients (1 - Risk 50-74 years 1-dose series) 2024 Social Influencers of Health Screening 11/16/2025 11/16/2024 Hypertension/CHF/CAD Annual BMP Blood Test 07/26/2026 07/26/2025, 11/23/2024, 02/19/2024 Breast Cancer Screening 02/27/2027 02/28/20, 02/18/2024, 02/18/2023 Cholesterol Screening (Lipid Panel) 11/23/2029 11/23/2024, 02/19/2024 DTaP,Tdap,and Td Vaccines (4 - Td or Tdap) 10/30/2030 10/30/2020, 10/31/2008, 06/11/1998 COVID-19 Vaccine Discontinued 05/08/2021, 04/17/2021 Pneumococcal Vaccine: 50+ Years Completed 03/09/2024 Depression Screening Completed 08/09/2025 Cervical Cancer Screening: Pap Smear Discontinued HIB Vaccines Aged Out No longer eligi ble based on patient's age to complete this topic HIV Screening Discontinued HPV Vaccines Aged Out No longer eligi ble based on patient's age to complete this topic Hepatitis A Vaccines Aged Out No long er eligible based on patient's age to complete this topic Hepatitis C Screening Discontinued IPV Vaccines Aged Out No longer eligi ble based on patient's age to complete this topic Influenza Vaccine Discontinued MMR Vaccines Aged Out No longer eligi ble based on patient's age to complete this topic Meningococcal ACWY Vaccine Aged Out N o longer eligible based on patient's age to complete this topic Meningococcal B Vaccine Aged Out No l onger eligible based on patient's age to complete this topic RSV Immunization Patients Under 20 months Aged Out No longer eligible based on patient's age to complete this topic Varicella Vaccines Aged Out No longer eligible based on patient's age to complete this topic Zoster Vaccines Discontinued Procedures Procedure Name Priority Date/Time Associated Diagnosis Comments THYROID STIMULATING HORMONE WITH REFLEX TO FREE T4 AND FREE T3 Routine 07/26/2025 9:11 AM EDT Dizziness COMPREHENSIVE METABOLIC PANEL Routine 07/26/2025 9:11 AM EDT Dizziness MAGNESIUM Routine 07/26/2025 9:[address] HEAD WO CONTRAST Routine 06/02/2025 7 :21 AM EDT Dizziness MG MAMMO DIGITAL SCREENING W JOSE DE JESUS BILAT Routine 02/27/2025 7:19 AM EDT Encounter for screening mammogram for malignant neoplasm of breast LIPID PANEL WITH REFLEX TO DIRECT LDL Routine 11/23/2024 9:14 AM EST Mixed hyperlipidemia from Last 3 Months or Most Recently Relevant to Health Maintenance Results * Thyroid stimulating hormone with reflex to free t4 and free t3 (07/26/2025 9:11 AM EDT) Pathologist [facility] TSH 0.61 0.40 - 4.00 mcIU/mL LAB CHEMISTRY METHOD 07/26/2025 3:16 PM EDT [facility] Blood Venous blood specimen / Unknown Venipuncture / Unknown 07/26/2025 9:11 AM EDT 07/26/2025 9:11 AM EDT Eleazar LOREDO LAB BLOOD ORDERABLES Fi nal Result Performing Organization Address City/[facility]/ZIP Co de Phone Number [facility] [address] [place] [address], [place] [phone] * Magnesium (07/26/2025 9:11 AM EDT) [facility] Magnesium 2.5 1.9 - 2.6 mg/dL LAB CHEMISTRY METHOD 07/26/2025 2:19 PM EDT [facility] Blood Venous blood specimen / Unknown Venipuncture / Unknown 07/26/2025 9:11 AM EDT 07/26/2025 9:11 AM EDT Eleazar LOREDO LAB BLOOD ORDERABLES Fi nal Result [facility] [address] [place] [address], [place] [phone] * Comprehensive metabolic panel (07/26/2025 9:11 AM EDT) [facility] Sodium 137 133 - 145 mmol/L LAB CHEMISTRY METHOD 07/26/2025 2:31 PM [facility] Potassium 4.4 3.5 - 5.5 mmol/L LAB CHEMISTRY METHOD 07/26/2025 2:31 PM [facility] Chloride 107 96 - 110 mmol/L LAB CHEMISTRY METHOD 07/26/2025 2:31 PM [facility] CO2 27 21 - 32 mmol/L LAB CHEMISTRY METHOD 07/26/2025 2:31 PM [facility] Anion Gap 3 3 - 11 LAB CHEMISTRY METHOD 07/26/2025 2:31 PM [facility] Glucose 72 70 - 100 mg/dL LAB CHEMISTRY METHOD 07/26/2025 2:31 PM [facility] BUN 10 5 - 25 mg/dL LAB CHEMISTRY METHOD 07/26/2025 2:31 PM [facility] Creatinine 0.52 0.50 - 1.10 mg/dL LAB CHEMISTRY METHOD 07/26/2025 2:31 PM [facility] eGFR 113 >=60 mL/min/1. 73m2 LAB CHEMISTRY METHOD 07/26/2025 2:31 PM [facility] Comment:Calculation based on the Chronic Kidney Disease Epidemiology Collaboration (CKD-EPI) equation refit without adjustment for race. BUN/Creatinine Ratio 19.2 LAB CHEMISTRY METHOD 07/26/2025 2:31 PM [facility] Calcium 9.5 8.5 - 10.5 mg/dL LAB CHEMISTRY METHOD 07/26/2025 2:31 PM [facility] AST (SGOT) 20 10 - 42 unit/L LAB CHEMISTRY METHOD 07/26/2025 2:31 PM [facility] ALT (SGPT) 26 10 - 60 unit/L LAB CHEMISTRY METHOD 07/26/2025 2:31 PM [facility] Alkaline Phosphatase 52 42 - 121 unit/L LAB CHEMISTRY METHOD 07/26/2025 2:31 PM EDT [facility] Total Protein 7.6 6.0 - 8.0 g/dL LAB CHEMISTRY METHOD 07/26/2025 2:31 PM EDT [facility] Albumin 4.0 3.2 - 5.0 g/dL LAB CHEMISTRY METHOD 07/26/2025 2:31 PM EDT [facility] Total Bilirubin 0.3 0.0 - 1.4 mg/dL LAB CHEMISTRY METHOD 07/26/2025 2:31 PM EDT [facility] Blood Venous blood specimen / Unknown Venipuncture / Unknown 07/26/2025 9:11 AM EDT 07/26/2025 9:11 AM EDT Eleazar LOREDO LAB BLOOD ORDERABLES Fi nal Result [facility] [address] [place] [address], * CT Head wo Contrast (06/02/2025 7:21 AM EDT) Anatomical Region Laterality Modality Head and Neck Computed Tomogra phy 06/02/2025 3:02 PM EDT Impressions 06/02/2025 3:04 PM [address]T Normal head CT for patient age. -------- FINAL REPORT -------- Dictated By: Alberto Meadows Dictated Date: 06/02/2025 15:02 ET Assigned Physician: Alberto Meadows Reviewed and Electronically Signed By: Alberto Meadows Signed Date: 06/02/2025 15:04 ET Workstation ID: [id number] Transcribed By: Self Edit Transcribed Date: 06/02/2025 15:02 ET Narrative 06/02/2025 3:04 PM EDT PROCEDURE: Noncontrast head CT. HISTORY: Dizziness, non-specific. COMPARISON: None. TECHNIQUE: Noncontrast head CT with coronal and sagittal reformats. Dose length product: 809 mGy-cm. FINDINGS: BRAIN: No hemorrhage, edema, mass, or extra-axial fluid collection. No CT evidence of an acute large vessel infarct. Ventricles and sulci are age commensurate. Mild atherosclerotic calcifications of the carotid siphons. ORBITS: Normal. SINUSES/MASTOIDS: Hypoplastic right frontal sinus. CALVARIUM: Normal. OTHER: The skull base soft tissues are normal. Procedure Note Alberto Meadows MD - 06/02/2025 PROCEDURE: Noncontrast head CT. HISTORY: Dizziness, non-specific. COMPARISON: None. TECHNIQUE: Noncontrast head CT with coronal and sagittal reformats. Dose length product: 809 mGy-cm. FINDINGS: BRAIN: No hemorrhage, edema, mass, or extra-axial fluid collection. No CTevidence of an acute large vessel infarct. Ventricles and sulci are agecommensurate. Mild atherosclerotic calcifications of the carotidsiphons. ORBITS: Normal. SINUSES/MASTOIDS: Hypoplastic right frontal sinus. CALVARIUM: Normal. OTHER: The skull base soft tissues are normal. IMPRESSION: Normal head CT for patient age. -------- FINAL REPORT -------- Dictated By: Alberto Meadows Dictated Date: 06/02/2025 15:02 ET Assigned Physician: Alberto Meadows Reviewed and Electronically Signed By: Alberto Meadows Signed Date: 06/02/2025 15:04 ET Workstation ID: [id number] Transcribed By: Self Edit Transcribed Date: 06/02/2025 15:02 ET Eleazar LOREDO G CT PROCEDURES Final Result * MG Mammo Digital Screening w Jose De Jesus bilat (02/27/2025 7:19 AM EDT) Anatomical Region Laterality Modality Breast Bilateral Mammography 02/27/2025 10:5 7 AM EDT Impressions 02/27/2025 11:20 AM EDT No mammographic evidence of malignancy. No suspicious interval change. A negative mammogram in the presence of a clinically suspicious palpable abnormality does not preclude the possibility of malignancy or alter the indications for biopsy. ASSESSMENT: BI-RADS 1: NEGATIVE RECOMMENDATION(S): 1: Routine screening mammogram BILATERAL in 1 year. [facility] [address], [address] -------- FINAL REPORT -------- Dictated By: Efrain Watts Dictated Date: 02/27/2025 10:57 ET Assigned Physician: Efrain Watts Reviewed and Electronically Signed By: Efrain Watts Signed Date: 02/27/2025 11:20 ET Workstation ID: [id number] Transcribed By: Self Edit Transcribed Date: 02/27/2025 10:57 ET Narrative 02/27/2025 11:20 AM EDT EXAM: SCREENING MAMMOGRAPHY, BILATERAL HISTORY: SCREENING. No additional history. COMPARISON: 02/18/24, 02/16/23, 12/18/21, 12/17/20 TECHNIQUE: Synthesized CC and MLO projections of each breast. Tomosynthesis of each breast in the CC and MLO projections. ADDITIONAL IMAGING: None Computer-aided detection was employed with the doxo AI 3-D. TISSUE DENSITY: There are scattered areas of fibroglandular density. (BI-RADS category B) FINDINGS: RIGHT BREAST: No suspicious mass. No suspicious calcification. No distortion. No additional suspicious right breast findings LEFT BREAST: No suspicious mass. No suspicious calcification. No distortion. No additional suspicious left breast findings Procedure Note Efrain Watts MD - 02/27/2025 EXAM: SCREENING MAMMOGRAPHY, BILATERAL HISTORY: SCREENING. No additional history. COMPARISON: 02/18/24, 02/16/23, 12/18/21, 12/17/20 TECHNIQUE: Synthesized CC and MLO projections of each breast.Tomosynthesis of each breast in the CC and MLO projections. ADDITIONAL IMAGING: None Computer-aided detection was employed with the dox[employer] AI 3-D. TISSUE DENSITY: There are scattered areas of fibroglandular density.(BI-RADS category B) FINDINGS: RIGHT BREAST: No suspicious mass. No suspicious calcification. No distortion. Noadditional suspicious right breast findings LEFT BREAST: No suspicious mass. No suspicious calcification. No distortion. Noadditional suspicious left breast findings IMPRESSION: No mammographic evidence of malignancy. No suspicious interval change. A negative mammogram in the presence of a clinically suspicious palpableabnormality does not preclude the possibility of malignancy or alter theindications for biopsy. ASSESSMENT: BI-RADS 1: NEGATIVE RECOMMENDATION(S): 1: Routine screening mammogram BILATERAL in 1 year. [facility] location[facility] [address] [place], [address] -------- FINAL REPORT -------- Dictated By: Efrain Watts Dictated Date: 02/27/2025 10:57 ET Assigned Physician: Efrain Watts Reviewed and Electronically Signed By: Efrain Watts Signed Date: 02/27/2025 11:20 ET Workstation ID: [id number] Transcribed By: Self Edit Transcribed Date: 02/27/2025 10:57 ET us Dennise Cha CN IMG BI PROCEDURES Final Res ult * (ABNORMAL) Lipid panel with reflex to direct LDL (11/23/2024 9:14 AM EST) Cholesterol 198 0 - 200 mg/dL LAB CHEMISTRY METHOD 11/23/2024 12:36 PM [facility] Triglycerides 54 0 - 150 mg/dL LAB CHEMISTRY METHOD 11/23/2024 12:36 PM [facility] HDL 72 >=40 mg/dL LAB CHEMISTRY METHOD 11/23/2024 12:36 PM [facility] LDL Calculated 115(H) 0 - 100 mg/dL LAB CHEMISTRY METHOD 11/23/2024 12:36 PM [facility] VLDL Cholesterol Brenton 10.8 mg/dL LAB CHEMISTRY METHOD 11/23/2024 12:36 PM [facility] Non HDL Chol. (LDL+VLDL) 126 <145 mg/dL LAB CHEMISTRY METHOD 11/23/2024 12:36 PM [facility] Chol/HDL Ratio 2.8 0.0 - 4.4 LAB CHEMISTRY METHOD 11/23/2024 12:36 PM EST [facility] Blood Venous blood specimen / Unknown Venipuncture / Unknown 11/23/2024 9:14 AM EST 11/23/2024 9:14 AM EST Ralph Ocampo MD LAB BLOOD ORDERABLES Final Resu lt [facility] [address] [place] [address], from Last 3 Months or Most Recently Relevant to Health Maintenance Insurance [facility] Care Teams Sports Physical Therapist Relationship Specialty Start Date End Date Ralph Ocampo MD [address] [place] [address] PCP - General Internal Medicine 09/28/24
--- OUTSIDE RECORDS SUMMARY | 2025-08-30 08:51 | XMS_ITS | Clinical Summary ---
Author Organization [facility] 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 Role Phone Ralph Ocampo Primary Care Provider [phone] Allergies Active Allergy Reactions Criticality Noted Date Comments Dust Mite Extract Hives 02/13/2025 Gramineae Pollens 07/29/2024 Grass Pollen Standardized Ext 2021 Medications albuterol HFA (Ventolin HFA) 108 (90 Base) MCG/ACT inhaler 2 PUFFS INHALATION EVERY 6 HOURS NEEDED ONLY 5 Active albuterol HFA (PROVENTIL HFA;VENTOLIN HFA) 108 (90 Base) MCG/ACT inhaler Inhale 2 puffs 4 Active EPINEPHrine (EPIPEN) 0.3 MG/0.3ML injection syringe 1 Units 4 Active estradiol (VIVELLE-DOT) 0.0375 MG/24HR APPLY 1 PATCH TWICE A WEEK Active ibuprofen (ADVIL,MOTRIN) 600 MG tablet Take 600 mg by mouth every 6 (six) hours if needed 4 Active Plecanatide (Trulance) 3 MG tablet Take 1 tablet by mouth 1 (one) time each day Active Plecanatide (Trulance) 3 MG tablet Take 1 tablet by mouth 1 (one) time each day 4 Active Plecanatide (Trulance) 3 MG tablet Take 3 mg by mouth in the morning. 5 Active tobramycin-dexa methasone (TobraDex) ophthalmic ointment APPLY 1 SPARINGLY IN EACH EYE BY OPHTHALMIC ROUTE DAILY AT BEDTIME Active topiramate (TOPAMAX) 50 MG tablet Take 50 mg by mouth in the morning and 50 mg in the evening. 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 I suspect that this is mild orthostasis even though are not seen on exam. She is taking an sxex-uxp-sifqyvj diuretic I asked her to stop it for a week and see if that improves her symptoms Palpitations 10/16/2022 03/26/2025 Overview (03/24/2025): Last Assessment & Plan: Patient is complaining about palpitations that occur at night this may be A. fib in the setting of untreated sleep apnea. Patient will have a 48-hour Holter Swelling 10/16/2022 03/26/2025 Overview (03/24/2025): Last Assessment & Plan: Patient complains of [...] I suspect that the estrogens Dyspnea 10/13/2022 03/26/2025 Overview (03/24/2025): Last Assessment & Plan: Patient still complains [...] sleep issues should be sorted out also. Insomnia 05/05/2022 03/26/2025 Irritable bowel syndrome 05/05/202209/2025 Migraine 05/05/2022 03/26/2025 Social History Tobacco Use Types Packs/Day Years Used Date Smoking Tobacco: Never Assessed Comments Unknown Sex and Gender Information Value Date Recorded Sex Assigned at Not on file Legal Sex Female 12:38 PM EDT Gender Identity Not on file Sexual Orientation Not on file Last Filed Vital Signs Vital Sign Reading Time Taken Comments Blood Pressure 138/78 03/27/2025 11:01 AM EDT Pulse 76 03/27/2025 11:01 AM EDT Temperature - - Respiratory Rate - - Oxygen Saturation 98% 03/27/2025 11:01 AM EDT Inhaled Oxygen Concentration - - Weight 62.1 kg (137 lb) 03/27/2025 11:01 AM EDT Height - - Body Mass Index - - Plan of Treatment Health Maintenance Due Date Last Done Comments Breast Cancer Screening 1975 Hepatitis B Vaccine (1 of 3 - 19+ 3-dose series) 09/11 Pneumococcal Vaccine: 50+ Years (1 of 2 - PCV) 993 Colorectal Cancer Screening: Annual FOBT 2023 Colorectal Cancer Screening: Colonoscopy 2023 Colorectal Cancer Screening: Sigmoidoscopy 2023 Influenza Vaccine (#1) 2025 Insurance [facility] Care Teams 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
== END 2025-08-30 09:08 | disposition home or self-care (01) ==
LOC: HO.HSM 08:27
PROVIDERS: PCP Internal Medicine; Visit Provider Psychiatry & Neurology Neurology
DX: G43.909 Migraine, unspecified, not intractable, without status migrainosus (principal); R42 Dizziness and giddiness; R00.2 Palpitations
CPT/HCPCS: 99203

== ENCOUNTER 2025-08-30 08:26 | Outpatient (REF) | payer BC, SELFPAY ==
[2025-08-30 09:35] LABS: MANUAL DIFF FLAG NO
[2025-08-30 10:24] LABS: Hematocrit 42.5 % (37.0-47.0); Hemoglobin 13.6 g/dl (12.0-16.0); Imm Gran Abs Auto 0.01 X10*3/uL (0.00-0.03); Imm Gran Pct Auto 0.2 % (0.0-0.4); Lymphocytes Absolute Auto 1.7 X10*3/uL (1.2-4.9); Mean Corpuscular HGB Conc 32.0 g/dl (31.0-35.0); Mean Corpuscular Hemoglobin 27.6 pg (27.0-33.0); Mean Corpuscular Volume 86.4 fL (80.0-98.0); NRBC Abs Auto 0.000 X10*3/uL (0.0-0.012); NRBC Pct Auto 0.0 /100WBC (0.0-0.2); Platelet Count 227 X10*3/uL (160-400); Red Blood Count 4.92 X10*6/uL (4.20-5.50); White Blood Count 4.8 X10*3/uL (4.8-10.8)
--- OUTSIDE RECORDS SUMMARY | 2025-08-30 10:38 | XMS_ITS | Data Portability ---
Author Organization [facility] [employer], [id number] Address [address] [place] [address] Care Team Providers Care Health Safety Manager Name Role Phone SHANA NAJERA Primary Care Provider [phone] SHANA NAJERA Referring Provider Assessment Encounter Date Assessment Date Assessment LastModified by Organization Details LastModified Time 09/23/2024 09/23/2024 .i discussed the patient's condition and treatment options. We reviewed her MRI over the phone. She would like to proceed with an L5-S1 epidural steroid injection. I went over the risk, benefits, alternatives, complications of injection versus conservative therapy with the patient. I answered all her questions. I spent 26 minutes reviewing the record in the community and examining the patient. [email or web address] Not available 09/23/2024 10:01:02 Plan of Treatment Reminders Order Date Submit Date Provider Last Modified By Organization Details Last Modified Time Details Appointments None recorded. Lab None recorded. Referral None recorded. Procedures None recorded. Surgeries None recorded. Imaging None recorded. Medication Orders methocarba mol 500 mg tablet 2023 024 [id number], [address] [place], [address], 09:58:10 Patient TargetsNo targets recorded. Patient InstructionsNo instructions recorded. Reason for Referral None Reported. Results Created Date Observation Date Name Description Value Unit Range Abnormal Flag Note LastModifiedBy Organization Detail LastModifiedTime 09/26/20 24 09/26/2024 EMG 2 limbs No observ ation record ed. [email or web address] [facility] ([facility] Central Scheduling) [facility], [place], [address], 10/04/2024 11:53:26 09/28/20 24 09/26/2024 lower extre mity elect romyo gram (PROC ) No observ ation record ed. [email or web address] Shana Lackey MD [address] [place] [address], [address], 10/28/2024 07:56:37 10/07/20 MRI, lumba r spine , w/o contr ast No observ ation record ed. [email or web address] Not Available 2023 08:00:29 10/27/2006/22/2024 XR, lumbo sacra l spine No observ ation record ed. [email or web address] Not Available 2023 08:53:16 10/28/20 24 10/28/2024 xr fluor o up to 1 hour See Note [facility] , a [facility] of [facility] Name: CHARLOTTE Jacques Date of : 1974 Reason for Exam: pain Exam Date: 2023 [id number] EST Report Status : Final Orderi ng Provid er: SHANA Arenas PCP: XIMENA HAMILTON Fluoro scopic spot radiog raphs obtain ed during sacral inject ion are submit patrice. No radiol ogist consul tation was reques patrice or provid ed during this proced ure and there is no radiol ogist profes sional charge . This report is genera patrice for docume ntatio n purpos es only. The dose for this proced ure was 1.13 mGy. PQRI CPT II G9500 ------ -- FINAL REPORT ------ -- Dictat ed By: Donta Jacobs Dictat ed Date: 2023 11:07 ET Assign ed Physic marcelina: Donta Jacobs Review ed and Electr onical ly Signed By: Donta Jacobs Signed Date: 2023 11:07 ET Workst ation ID: [id number] Transc ribed By: Self Edit Transc ribed Date: 2023 11:07 ET [email or web address] [place], [address], 10/28/2024 13:04:28 Result Notes None recorded. Problems Name Problem SNOMED Code Status Onset Date Resolution Date Notes Provider Name and Address Organization Details Recorded Time Asthma 409978912 Active 2023 Lianne Stock null, [facility] 4 11:32:27 Dizziness 645474874 Active 2023 Lianne Stock null, [facility] 4 11:32:36 Dyspnea 605763564 Active 2023 Lianne Stock null, [facility] 4 11:32:45 Ganglion cyst of right dorsal wrist 546000897 Active 2023 Lianne Stock null, [facility] 4 11:33:09 Irritable bowel syndrome 45117628 Active 2023 Lianne Stock null, [facility] 4 11:33:20 Insomnia 729085216 Active 2023 Lianne Stock null, [facility] 4 11:33:31 Migraine 11425983 Active 2023 Lianne Stock null, [facility] 4 11:33:40 Palpitations 10085713 Active 2023 Lianne Stock null, [facility] 4 11:33:48 Swelling 30428179 Active 2023 Lianne Stock null, [facility] 4 11:33:55 Serum vitamin B12 below reference range 440094532 Active 2023 Lianne Stock null, [facility] 4 12:24:58 Serum iron below reference range 428206104 Active 2023 Lianne Stock null, [facility] 4 12:31:50 Problem Notes None recorded. Procedures Surgical History Date Name Laterality Status Provider Name and Address Organization Details Recorded Time hysterectomy completed Lianne Stock [facility] 09/22/2024 11:35:27 Pt had hyst completed Not Available Replaced by [facility] 01/24/2025 03:44:56 Imaging Results None recorded. Procedure Notes None recorded. Medical Equipment None Reported. Allergies Allergen ID Allergen Name Allergen Category Reaction Reaction Severity Criticality Documentation Date Start Date Code Code System Note Provider Name and Address Organization Details Recorded Time 09444 Hayfever medicatio n Not available Not available Not available 12/27/20242023 Not Available Replaced by [facility] 5 15:48:44 671 animal dander environme nt Not available Not available Not available 09/22/2024 [facility] 10:13:42 683 grass pollen environme nt,medica tion Not available Not available Not available 09/22/2024 [facility] 4 11:31:33 Medications Name Sig Start Date Stop Date Status Note LastModified by Organization Details LastModified Time cyclobenzap rine 10 mg tablet Take 1 tablet (10 mg total) by mouth 3 (three) times a day as needed for muscle spasms. active Not Available Not Available No t Available methocarbam ol 500 mg tablet TAKE 1 TABLET BY MOUTH TWICE A DAY DIRECTED X30 DAYS 2024 active Not Available Not Available Not Avai lable fluconazole 150 mg tablet TAKE ONE TABLET BY MOUTH TODAY, IF SYMPTOMS CONTINUE IN 3 DAYS TAKE SECNOD TABLET 09/22 completed Not Available Not Available Not Available estradiol 0.1 mg/[address] 1 patch onto the skin 2 (two) times a week. active Not Available Not Available No t Available estradiol 0.05 mg/24 hr semiweekly transdermal patch TAKE 1 PATCH TOPICALLY EVERY THURSDAY AND THURSDAY active Not Available Not Available No t Available montelukast 10 mg tablet Take 1 tablet (10 mg total) by mouth every night at bedtime. active Not Available Not Available No t Available epinephrine 0.3 mg/0.3 mL injection, auto-inject or INJECT 1 UNITS DIRECTED NEEDED (ANAPHYLA XIS). active Not Available Not Available No t Available ibuprofen 600 mg tablet Take 1 tablet (600 mg total) by mouth every 6 (six) hours as needed for pain. active Not Available Not Available No t Available methylpredn isolone 4 mg tablets in a dose pack TAKE 6 TABLETS ON DAY 1 DIRECTED ON PACKAGE AND DECREASE BY 1 TAB EACH DAY FOR A TOTAL OF 6 DAYS 09/22 completed Not Available Not Available Not Available topiramate 50 mg tablet Take 1 tablet (50 mg total) by mouth 2 (two) times a day. active dfnam e: Not; dmini t: In Syste m; dlnam e: Provi mack; Not Available Not Available Not Available celecoxib 50 mg capsule TAKE 1 CAPSULE BY MOUTH 2 TIMES DAILY FOR 30 DAYS. active Not Available Not Available No t Available epinephrine 0.3 mg/0.3 mL injection syringe Inject as directed. active Not Available Not Available No t Available albuterol sulfate 90 mcg/actuati on breath activated powder inhaler Inhale into the lungs. active Not Available Not Available No t Available Trulance 3 mg tablet Take by mouth. active Not Available Not Available No t Available albuterol 90 mcg-budeson rocio 80 mcg/actuati on HFA aerosol inhaler Inhale by inhalatio n route. active Not Available Not Available No t Available Vitals None Recorded Social History None recorded. Functional Status None recorded. Mental Status None recorded. Family History Nothing Reported. Medical History Condition Response Allergies/Hayfever Y Migraines Y Asthma Y Irritable Bowel Syndrome Y Gynecological HistoryNo gynecological history recorded. Obstetrics History GPAL:G 0 P 0 0 0 0 Past Encounters Encounter ID Performer Location Encounter Start Date Encounter Closed Date Diagnosis/Indication Diagnosis SNOMED-CT Code Diagnosis ICD10 Code Diagnosis IMO Codes Diagnosis Note [id number] Shana Lackey MD [id number] [address] [place] [address] 09/23/2024 09:05:08 09/23/2024 10:14:04 Lumbar radiculopathy 323836899 M54.16 Health Concerns Section Related Observation LastModified by Organization Detai ls LastModified Time None Recorded Concern Status LastModified by Organization Details LastModified Time None Recorded Advance Directives Directive None Recorded Payers Insurance Date Sequence Insurance Name Policy Number Policy Lopez Covered Member ID Lopez Member ID Guarantor Name 10/25/2024 1 [id number]MEDICARE [place]PLACEMENT/ ADVANTAGE - PPO) [id number] Charlotte Rios [id number] Charlotte Rios Notes Date Note Type Note Provider Name and Address Organization Details Recorded Time 09/23/2024 text/html ROS as noted in the HPI This is a medically necessary visit. The patient would typically be seen in the office. The patient verbally agreed to a virtual phone visit in place of a physical appointment. The patient was informed that provider would take precautions to ensure privacy of PHI as much as possible. The patient was informed that they can opt out or refuse services at anytime. Visit included: - substantial medical advice- revising treatment plan- prescribing/revising medications, if prescribed.- providing self-care/patient education information for new and/or chronic health problem. I spoke with the patient on the phone. She continues to have low back pain radiating down the left greater than right legs down the backs of the legs. There is numbness and coldness but no weakness in the legs. She was taking cyclobenzaprine however it made her too drowsy. 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 See report. Shana Lackey MD [facility], [place] - [facility] 09/23/2024 10:01:33 OBGyn Episode No OBEpisode recorded.
--- OUTSIDE RECORDS SUMMARY | 2025-08-30 10:38 | XMS_ITS ---
Author Name [facility] Organization Unknown History of Medication Use Medication Directions Dispensed Refills Start Date End Date Stat us amitriptyline 10 mg tablet TAKE 1 TABLET BY MOUTH EVERY DAY AT BEDTIME FOR 180 DAYS active binaxnow cov kit home nida active cetirizine 10 mg tablet TAKE 1 TABLET BY MOUTH EVERY DAY active epinephrine 0.3 mg/0.3 mL injection, auto-injector USE DIRECTED FOR ANAPHYLAXIS THEN CALL 911 active estradiol 0.0375 mg/24 hr semiweekly transdermal patch APPLY 1 PATCH TWICE A WEEK active estradiol 0.05 mg/24 hr semiweekly transdermal patch TAKE 1 PATCH TOPICALLY EVERY THURSDAY AND THURSDAY,X90 DAYS active ibuprofen 600 mg tablet TAKE 1 TABLET BY MOUTH EVERY 6 HOURS NEEDED FOR PAIN active montelukast 10 mg tablet TAKE 1 TABLET BY MOUTH EVERYDAY AT BEDTIME active TobraDex 0.3 %-0.1 % eye ointment APPLY 1 SPARINGLY IN EACH EYE BY OPHTHALMIC ROUTE DAILY AT BEDTIME active topiramate 50 mg tablet TAKE 1 TABLET BY MOUTH TWICE A DAY active Trulance 3 mg tablet TAKE 1 TABLET BY MOUTH EVERY DAY active Ventolin HFA 90 mcg/actuation aerosol inhaler 2 PUFFS INHALATION EVERY 6 HOURS NEEDED ONLY active Allergies Allergen Reaction Severity Comment Documented Date Source Statu s DOG DANDER [facility] HOUSE DUST [facility] POLLEN EXTRACTS [facility] Problems Problem Status Onset Date Problem Type Date of Resoluti on Source Ganglion cyst of left hand active 2023-11-04 ProblemAct [facility] Encounters Encounter Type Encounter Reason Primary Diagnosis Location Date Ambulatory [facility] 09/28/2024 Ambulatory [facility] 02/20/2024 Ambulatory [facility] 01/19/2024 Ambulatory [facility] 12[facility]14/2023 Ambulatory [facility] 12/12/2023 Ambulatory [facility] 11/05/2023 Ambulatory [facility] 11[facility]04/2023 Ambulatory [facility] 11/04/2023 Ambulatory [facility] 11[facility]04/2023 Ambulatory [facility] 11/04/2023 Ambulatory [facility] 11/02/2023 Ambulatory [facility] 11/02/2023 Ambulatory [facility] 10/29/2023 Ambulatory [facility] 10/29/2023 Care Team Organization Name Specialty Phone Email Start Date End Da greyson [facility] 03/11/2025
--- OUTSIDE RECORDS SUMMARY | 2025-08-30 10:38 | XMS_ITS | Data Portability ---
Author Organization [place] [facility] Idalia Singh [place] Address [address] [place] [address] Care Team Providers Care Early Childhood Services Coordinator Name Role Phone XIMENA OLIVAS Referring Provider XIMENA OLIVAS Primary Care Provider Assessment Encounter Date Assessment Date Assessment LastModified by Organization Details LastModified Time 11/04/2023 11/04/2023 The above findings were discussed in detail today with the patient. She has evidence of a left dorsal ganglion cyst. Pathology and expected prognosis were discussed with the patient today. Treatment options were discussed including conservative treatment, bracing, anti-inflammato nahum, symptomatic treatment, cyst aspiration and steroid injection, or surgical excision. I did let her know risk and benefits of all treatment options. She would like to proceed with a aspiration today in the office. I did let her know that 50% of the time the cyst recurs, if this happens, she can have a second aspiration or undergo surgical excision if it continues to bother her. She understands this risk and would like to proceed with the aspiration and steroid injection today. She tolerated the procedure well. I let her know that she should monitor it, if it does return and it continues to bother her she can come back and see me. She can wear a wrist splint which was provided for her today, take Motrin, and ice the area if it bothers her today. I will have her follow-up with me in 6 weeks unless it recurs before that. If she is feeling well she does not need to return for follow-up. All of her questions were answered, she is in agreement with the plan. Not available 11/04/2023 13:24:11 Plan of Treatment Reminders Order Date Submit Date Provider Last Modified By Organization Details Last Modified Time Details Appointments None record ed. Lab None record ed. Referral None record ed. Procedures None record ed. Surgeries None record ed. Imaging None record ed. Medication Orders None record ed. Patient TargetsNo targets recorded. Patient Instructions Encounter Date Encounter Id Patient Instructions Last Modified By Organization Details Last Modified Time 11/04/2023 [id number] You have been provided with a cortisone injection in order to reduce the pain and inflammation that you are experiencing. The injection consists of two medications. Cortisone (an anti-inflammatory that will take 48-72 hours to take effect) and Lidocaine (a numbing agent that will last 2-3 hours). Please note that not everyone will have a lasting response following the injection. PATIENT INSTRUCTIONS Once the Lidocaine wears off, you may have an increase in your pain. I recommend icing the affected area for 20 minutes 3-4 times per day. It is recommended that you refrain from any high level activities using the joint or limb that was injected for approximately 24-48 hours. Normal day-to-day activities are generally not a problem. POSSIBLE SIDE EFFECTS Individuals with dark complexions may experience some skin discoloration locally at the site of the injection. There is the possibility of an increase in discomfort within 48 hours following the injection. This is called rosa crews . To help minimize the chances of this, please see the post-injection instructions above. There is a less than 1% chance of an infection. If you notice any signs of infection (redness, warmth, drainage, fever greater than 100 degrees) please call our office or contact us through the portal [facility]. Not available 11/04/2023 13:23:52 X-rays from an outside source were available for review, this was 3 views of the left wrist which demonstrates no acute fracture or dislocation. There is no bony abnormality noted. No evidence of SL widening. The alignment of the wrist is anatomic. Not available 11/04/2023 13:19:11 Reason for Referral None Reported. Problems Name Problem SNOMED Code Status Onset Date Resolution Date Notes Provider Name and Address Organization Details Recorded Time Ganglion cyst of left hand 590007116416932 Active 2022 Swati martinez MD [address] [facility],[address], [place], [address], [place] [facility] 13:19:19 Problem Notes None recorded. Procedures Surgical History Date Name Laterality Status Provider Name and Address Organization Details Recorded Time 11/04/20 23 Ganglion Cyst Asp & Inj completed Swati Viveros MD [address] [facility] [address], [place], [address], [place] [facility], [facility] 11/04/2023 13:17:56 hysterectomy completed [facility] 11/04/2023 11:22:17 Removal of ovarian cyst(s) completed [facility], P 11/04/2023 11:22:26 Imaging Results None recorded. Procedure Notes None recorded. Medical Equipment None Reported. Allergies Allergen ID Allergen Name Allergen Category Reaction Reaction Severity Criticality Documentation Date Start Date Code Code System Note Provider Name and Address Organization Details Recorded Time 12145 POLLEN EXTRACTS environme nt,medica tion Not available Not available Not available 11/04/2023 53134 6 [facility], [facility] 11:19:27 06470 house dust allergeni c extract environme nt,medica tion Not available Not available Not available 11/04/2023 32769 9 [facility], [facility], P 3 11:19:39 23848 tree and shrub pollen environme nt,medica tion Not available Not available Not available 11/04/2023 Kylee [facility], [facility] 3 11:19:54 41173 Canis lupus familiari s extract environme nt Not available Not available Not available 11/04/2023 59204 4 [facility], [facility], [facility] 3 11:20:01 35233 cockroach environme nt Not available Not available Not available 11/04/2023 Kylee [facility], [facility] 11:20:10 Medications Name Sig Start Date Stop Date Status Note LastModified by Organization Details LastModified Time binaxnow cov kit home nida active Not Available Not Available Not Available cetirizine 10 mg tablet TAKE 1 TABLET BY MOUTH EVERY DAY active Not Available Not Available No t Available estradiol 0.05 mg/24 hr semiweekly transdermal patch TAKE 1 PATCH TOPICALLY EVERY THURSDAY AND THURSDAY active Not Available Not Available No t Available TobraDex 0.3 %-0.1 % eye ointment APPLY 1 SPARINGLY IN EACH EYE BY OPHTHALMIC ROUTE DAILY AT BEDTIME active Not Available Not Available N ot Available amitriptylin e 10 mg tablet TAKE 1 TABLET BY MOUTH EVERY DAY AT BEDTIME FOR 180 DAYS active Not Available Not Available No t Available montelukast 10 mg tablet TAKE 1 TABLET BY MOUTH EVERYDAY AT BEDTIME active Not Available Not Available No t Available epinephrine 0.3 mg/0.3 mL injection, auto-injecto r USE DIRECTED FOR ANAPHYLAXIS THEN CALL 911 active Not Available Not Available No t Available ibuprofen 600 mg tablet TAKE 1 TABLET BY MOUTH EVERY 6 HOURS NEEDED FOR PAIN active Not Available Not Available No t Available estradiol 0.0375 mg/24 hr semiweekly transdermal patch APPLY 1 PATCH TWICE A WEEK active Not Available Not Available No t Available Ventolin HFA 90 mcg/actuatio n aerosol inhaler 2 PUFFS INHALATION EVERY 6 HOURS NEEDED ONLY active Not Available Not Available Not Available topiramate 50 mg tablet TAKE 3 TABLETS BY MOUTH DAILY active Not Available Not Available Not Available Trulance 3 mg tablet TAKE 1 TABLET BY MOUTH EVERY DAY active Not Available Not Available No t Available BinaxNOW COVID-19 Ag Self Test kit FOLLOW INSTRUCTION S INCLUDED WITH THE PACKAGE. active Not Available Not Available No t Available Vitals Date Recorded Body height Body mass index (BMI) Body weight Provider Name and Address Organization Details Last Updated DateTime 11/04/2023 157.48 cm 23.8 kg/m2 81037.[address] [place] [facility] [place], [facility] 11/04/2023 11:20:26 Social History None recorded. Functional Status Question Answer Note LastModified by Organizat ion Details LastModified Time Do you use any illicit or recreational drugs? No Information not available 11/04/2023 Do you or have you ever used any other forms of tobacco or nicotine? No Information not available 11/04/2023 What is your level of alcohol consumption? None Information not available 11/04/2023 Mental Status None recorded. Family History Relationship Description Onset Age of this Age Resolved Age Notes LastModified by Organization Details LastModified Time Mother Arthritis Not available 11/04/2023 11:21:34 Mother Diabetes mellitus Not available 2022 11:21:47 Mother Heart disease Not available 2022 11:21:56 Mother Hypercholest erolemia Not available 2022 11:22:06 Father Family history of malignant neoplasm Not available 2022 11:21:40 Brother Diabetes mellitus Not available 2022 11:21:47 Medical History Condition Response Anemia Y Gynecological HistoryNo gynecological history recorded. Obstetrics History GPAL:G 0 P 0 0 0 0 Past Encounters Encounter ID Performer Location Encounter Start Date Encounter Closed Date Diagnosis/Indication Diagnosis SNOMED-CT Code Diagnosis ICD10 Code Diagnosis IMO Codes Diagnosis Note [id number] MD KULDIP Salazar [address] [place] [address] 11/04/2023 10:45:04 11/04/2023 13:05:13 Ganglion cyst of left hand 9584847994 87237 M67.442 Health Concerns Section Related Observation LastModified by Organization Detai ls LastModified Time None Recorded Concern Status LastModified by Organization Details LastModified Time None Recorded Advance Directives Directive None Recorded Payers Insurance Date Sequence Insurance Name Policy Number Policy Lopez Covered Member ID Lopez Member ID Guarantor Name 12/24/2023 1 HANS[employer]ME[employer] (PPO) [id number] Charlotte Rios [id number] Charlotte Rios Notes Date Note Type Note Provider Name and Address Organization Details Recorded Time 11/04/2023 text/html ROS as noted in the HPI This is a 48-year-old gvwht-bkwl-fukpsg nt female who is presenting with a left dorsal wrist mass and pain in her left hand. She states she has had pain on and off for a number of months however she feels like it is more persistent in the last 3 weeks. She did start noticing the cyst on 10/17/2023 and does believe it is getting bigger. She says her pain is mostly over the cyst however it radiates on the dorsal aspect of her hand and her wrist with movement. She does describe some faint tingling however no discrete numbness in any dermatomal distribution. She has tried a splint and Motrin which have helped somewhat however has not completely resolved the symptoms. She notes no skin changes or drainage from the cyst, no lumps or bumps anywhere else. She did go to an urgent care a few weeks ago where x-rays were taken and she was told to follow-up with hand doctor. Swati Viveros MD [address] [place] [address], [address], [place] [facility], [facility] 11/04/2023 13:24:37 OBGyn Episode No OBEpisode recorded.
[2025-08-30 10:57] LABS: Anion Gap 9 (12-20); Blood Urea Nitrogen 11 mg/dL (9-16); Calcium 8.9 mg/dL (8.4-10.2); Carbon Dioxide 23 mmol/L (22-29); Chloride 113 mmol/L (96-108); Estimated Glomerular Filt Rate > 60; Potassium 4.1 mmol/L (3.3-5.1); Sodium 141 mmol/L (135-145)
== END 2025-08-30 08:27 | disposition home or self-care (01) ==
LOC: HO.LAB 08:26
PROVIDERS: PCP Internal Medicine; Visit Provider Psychiatry & Neurology Neurology
DX: R42 Dizziness and giddiness (principal); G43.909 Migraine, unspecified, not intractable, without status migrainosus; R00.2 Palpitations; Z79.899 Other long term (current) drug therapy
CPT/HCPCS: 36415; 80048; 84443; 85025; 85652

== ENCOUNTER 2025-09-14 08:31 | Outpatient (REF) | payer BC, SELFPAY ==
--- OUTSIDE RECORDS SUMMARY | 2025-06-09 04:00 | XMS_ITS ---
Author Organization [facility] Address [address] [place] [address] Care Team Providers Care Warning Coordination Meteorologist Name Role Phone HUMPHREY DELUNA Unavailable [phone] JAE WILLINGHAM Unavailable [phone] REASON FOR VISIT pt is here for nv - pt is here for sema 0.5mg she got injection and tolerated injection well Medications Medication SIG (Take, Route, Frequency, Duration) Notes Start Date End Date Status Topamax 50 MG 1 tablet Orally Once a day Active Montelukast Sodium 10 MG 1 tablet Orally Once a day Active Estradiol 0.05 MG/24HR 1 patch to skin Transdermal Two times a Week Active Ventolin HFA 108 (90 Base) MCG/ACT 1 puff as needed Inhalation every 4 hrs Active Contrave 8-90 MG 1 tab in AM x 1 week 1 tab in AM 1 tab in PM for 1 week, 2 tab in AM 1 tab in PM for 1 week the 2 tabs twice daily Orally Once a day; Duration: 30 days 05/22/2025 Active Encounters Encounter Location Date Provider Diagnosis [facility] [address] [place] [address] 06/09/2025 JAE WILLINGHAM Plan Of Treatment No Information Medications Administered Medication Instructions Date of Administration Dosage Notes Semaglutide 06/09/2025 0.5 mg lot# [id number] Progress Notes * GABRIEL LoreJacqueOB: 4 (50 yo F)Acc No.[id number]:06/09/2025 Patient: Charlotte CANTU Provider: Cmaila Willingham MD :1975 A ge:49 Y S ex:Female Date:06/09/2025 Address:[address] [place], [place] [address], [id number] Subjective: * Chief Complaints: * 1 . Pt is here for nv - pt is here for sema 0.5mg she got injection and tolerated injection well. * Medical History: * Medications: T giang Topamax 50 MG Tablet 1 tablet Orally Once a day , Taking Montelukast Sodium 10 MG Tablet 1 tablet Orally Once a day , Taking Estradiol 0.05 MG/24HR Patch Twice Weekly 1 patch to skin Transdermal Two times a Week , Taking Ventolin HFA 108 (90 Base) MCG/ACT Aerosol Solution 1 puff as needed Inhalation every 4 hrs , Taking Contrave 8-90 MG Tablet Extended Release 12 Hour 1 tab in AM x 1 week 1 tab in AM 1 tab in PM for 1 week, 2 tab in AM 1 tab in PM for 1 week the 2 tabs twice daily Orally Once a day Objective: * Vitals: Assessment: Plan: * Treatment: * Therapeutic Injections: Semaglutide : 0.5 mg (Route: Subcutaneous) given by gwen parkinson on right arm subcutaneous * Images: Billing Information: * Visit Code: * Procedure Codes: * Electronic signature of RISA WILLINGHAM MD on 09/14/2025 at 09:18 AM EDT Sign off status: Pending * Provider: Camila Willingham MD Date: 0 06/09/2025 Generated for Saadia franklin/Marni/Syed on: 1 09:18 AM EDT
--- OUTSIDE RECORDS SUMMARY | 2025-06-16 04:00 | XMS_ITS ---
Author Organization [facility] Address [address] [place] [address] Care Team Providers Care Traffic Workforce Representative Name Role Phone HUMPHREY DELUNA Unavailable [phone] JAE WILLINGHAM Unavailable [phone] REASON FOR VISIT pt presents for nurse visit. sema .5mg administered. pt tolerated well, consent form signed Medications Medication SIG (Take, Route, Frequency, Duration) Notes Start Date End Date Status Contrave 8-90 MG 1 tab in AM [...] every 4 hrs Active Estradiol 0.05 MG/24HR 1 patch to skin Transdermal Two times a Week Active Montelukast Sodium 10 MG 1 tablet Orally Once a day Active Topamax 50 MG 1 tablet Orally Once a day Active Encounters Encounter Location Date Provider Diagnosis [facility] [address] [place] [address] 06/16/2025 JAE WILLINGHAM Plan Of Treatment No Information Medications Administered Medication Instructions Date of Administration Dosage Notes Semaglutide 06/16/2025 .5 mg Progress Notes * Chet RIOSOB: 4 (50 yo F)Acc No.[id number]:06/16/2025 Patient: Charlotte CANTU Provider: Camila Willingham MD :1975 A ge:49 Y S ex:Female Date:06/16/2025 Address:[address] [place] [address], [place] Subjective: * Chief Complaints: * 1 . Pt presents for nurse visit. sema .5mg administered. pt tolerated well, consent form signed. * Medical History: * Medications: T barb Topamax 50 MG Tablet 1 tablet Orally [...] * Treatment: * Therapeutic Injections: Semaglutide : .5 mg (Route: Subcutaneous) given by Soraida Macario on left arm subcutaneous * Images: Billing Information: * Visit Code: * Procedure Codes: * Electronic signature of RISA WILLINGHAM MD on 09/14/2025 at 09:17 AM EDT Sign off status: Pending * Provider: Camila Willingham MD Date: 0 06/16/2025 Generated for Saadia franklin/Marni/Syed on: 09:17 AM EDT
--- OUTSIDE RECORDS SUMMARY | 2025-06-23 04:15 | XMS_ITS ---
Author Organization [facility] Address [address] [place] [address] Care Team Providers Care Electrician Substation Supervisor Name Role Phone HUMPHREY DELUNA Unavailable [phone] JAE WILLINGHAM Unavailable [phone] REASON FOR VISIT pt is here for nv for sema 0.5mg pt signed consent form and tolerated injection well Medications Medication SIG (Take, Route, Frequency, Duration) Notes Start Date End Date Status Estradiol 0.05 MG/24HR 1 patch to skin Transdermal Two times a Week Active Montelukast Sodium 10 MG 1 tablet Orally Once a day Active Topamax 50 MG 1 tablet Orally Once a day Active Contrave 8-90 MG 2 tablets Orally twi ce daily; Duration: 30 days Active Ventolin HFA 108 (90 Base) MCG/ACT 1 puff as needed Inhalation every 4 hrs Active Encounters Encounter Location Date Provider Diagnosis [facility] [address] [place] [address] 06/23/2025 JAE WILLINGHAM Plan Of Treatment No Information Medications Administered Medication Instructions Date of Administration Dosage Notes Semaglutide 06/23/2025 0.5 mg lot# [id number] 0.5mg Progress Notes * FRANCES LoreraDOB: 4 (50 yo F)Acc No.[id number]:06/23/2025 Patient: Charlotte CANTU Provider: Camila Willingham MD :1975 A ge:49 Y S ex:Female Date:06/23/2025 Address:[address] [place], [place] [id number] Subjective: * Chief Complaints: * 1 . Pt is here for nv for sema 0.5mg pt signed consent form and tolerated injection well. * Medical History: [...] 12 Hour 2 tablets Orally twice daily , Medication List reviewed and reconciled with the patient Objective: * Vitals: Assessment: Plan: * Treatment: * Therapeutic Injections: Semaglutide : 0.5 mg (Route: Subcutaneous) given by gwen parkinson on subcutaneus * Images: Billing Information: * Visit Code: * Procedure Codes: * Electronic signature of RISA WILLINGHAM MD on 09/14/2025 at 09:19 AM EDT Sign off status: Pending * Provider: Camila Willingham MD Date: 0 06/23/2025 Generated for Saadia franklin/Marni/Syed on: 1 09:19 AM EDT
--- OUTSIDE RECORDS SUMMARY | 2025-06-28 04:30 | XMS_ITS ---
Author Organization [facility] Address [address] [place] [address] Care Team Providers Care Metal Spinner Name Role Phone HUMPHREY DELUNA Unavailable [phone] Encounters Encounter Location Date Provider Diagnosis [facility] [address] [place] [address] 06/28/2025 HUMPHREY DELUNA Plan Of Treatment No Information Progress Notes * Chet RIOSOB: 4 (50 yo F)Acc No.[id number]:06/28/2025 Patient: Charlotte CANTU Provider: Cory DELUNA PA-C :1975 A ge:49 Y S ex:Female Date:06/28/2025 Address:[address] [place], [place] [address] Subjective: * Chief Complaints: * * Medical History: Objective: * Vitals: Assessment: Plan: * Treatment: * Images: Billing Information: * Visit Code: * Procedure Codes: * Electronic signature of FELICIANO DELUNA PA-C, [id number] on 09/14/2025 at 09:19 AM EDT Sign off status: Pending * Provider: Cory DELUNA PA-C Date: 0 06/28/2025 Generated for Saadia franklin/Marni/eTluis msmleigh on: 1 09:19 AM EDT
--- OUTSIDE RECORDS SUMMARY | 2025-06-30 04:00 | XMS_ITS ---
Author Organization [facility] Address [address] [place] [address] Care Team Providers Care Director Underwriter Sales Name Role Phone HUMPHREY DELUNA Unavailable [phone] ANANTH JAE Unavailable [phone] REASON FOR VISIT Patient is here for [...] every 4 hrs Active Contrave 8-90 MG 2 tablets Orally twi ce daily; Duration: 30 days Active Encounters Encounter Location Date Provider Diagnosis [facility] [address] [place] [address] 06/30/2025 JAE WILLINGHAM Plan Of Treatment No Information Medications Administered Medication Instructions Date of Administration Dosage Notes Semaglutide 06/30/2025 0.5 mg Progress Notes * RIOSLore BOOTHEJacqueOB: 4 (50 yo F)Acc No.[id number]:06/30/2025 Patient: Charlotte CANTU Provider: Camila Willingham MD :1975 A ge:49 Y S ex:Female Date:06/30/2025 Address:[address] [place] [address], [facility] Subjective: * Chief Complaints: * 1 . Patient is here for sema 0.5mg. Patient signed consent and left the office in stable condition. * Medical History: * Medications: T barb [...] 12 Hour 2 tablets Orally twice daily Objective: * Vitals: Assessment: Plan: * Treatment: * Therapeutic Injections: Semaglutide : 0.5 mg (Route: Subcutaneous) given by Tomer Turcios on right arm subcutaneous * Images: Billing Information: * Visit Code: * Procedure Codes: * Electronic signature of RISA WILLINGHAM MD on 09/14/2025 at 09:19 AM EDT Sign off status: Pending * Provider: Camila Willingham MD Date: 0 06/30/2025 Generated for Saadia franklin/Marni/Syed on: 1 09:19 AM EDT
--- OUTSIDE RECORDS SUMMARY | 2025-07-05 09:00 | XMS_ITS ---
Author Organization [facility] [address] Address [address] [place] [address] Care Team Providers Care Stable Cleaner Name Role Phone HUMPHREY DELUNA Unavailable [phone] JAE WILLINGHAM Unavailable [phone] REASON FOR VISIT 0.5mg Encounters Encounter Location Date Provider Diagnosis [facility] [address] [place] [address] 07/05/2025 JAE WILLINGHAM Plan Of Treatment No Information Progress Notes * RIOSLore FELICIANOJacqueOB: 4 (50 yo F)Acc No.[id number]:07/05/2025 Patient: Charlotte CANTU Provider: Camila Willingham MD :1975 A ge:49 Y S ex:Female Date:07/05/2025 Address:[address] [place], [place] [id number] Subjective: * Chief Complaints: * 1 . 0.5mg. * Medical History: Objective: * Vitals: Assessment: Plan: * Treatment: * Images: Billing Information: * Visit Code: * Procedure Codes: * Electronic signature of RISA WILLINGHAM MD on 09/14/2025 at 09:17 AM EDT Sign off status: Pending * Provider: Camila Willingham MD Date: 0 07/05/2025 Generated for Saadia franklin/Marni/Syed on: 1 09:17 AM EDT
--- OUTSIDE RECORDS SUMMARY | 2025-07-14 04:00 | XMS_ITS ---
Author Organization [facility] [address] Address [address] [place] [address] Care Team Providers Care Door Operator Name Role Phone HUMPHREY DELUNA Unavailable [phone] JAE WILLINGHAM Unavailable [phone] REASON FOR VISIT 0.5mg Encounters Encounter Location Date Provider Diagnosis [facility] [address] [place] [address] 07/14/2025 JAE WILLINGHAM Plan Of Treatment No Information Progress Notes * RIOSLore BOOTHEJacqueOB: 4 (50 yo F)Acc No.[id number]:07/14/2025 Patient: Charlotte CANTU Provider: Camila Willingham MD :1975 A ge:49 Y S ex:Female Date:07/14/2025 Address:[address] [place], [place] [phone] Subjective: * Chief Complaints: * 1 . 0.5mg. * Medical History: Objective: * Vitals: Assessment: Plan: * Treatment: * Images: Billing Information: * Visit Code: * Procedure Codes: * Electronic signature of RISA WILLINGHAM MD on 09/14/2025 at 09:17 AM EDT Sign off status: Pending * Provider: Camila Willingham MD Date: 0 07/14/2025 Generated for Saadia franklin/Marni/Syed on: 1 09:17 AM EDT
--- OUTSIDE RECORDS SUMMARY | 2025-07-21 04:00 | XMS_ITS ---
Author Organization [facility] [address] Address [address] [place] [address] Care Team Providers Care Environmental Permitting Specialist Name Role Phone HUMPHREY DELUNA Unavailable [phone] JAE WILLINGHAM Unavailable [phone] REASON FOR VISIT 0.5mg Encounters Encounter Location Date Provider Diagnosis [facility] [address] [place] [address] 07/21/2025 JAE WILLINGHAM Plan Of Treatment No Information Progress Notes * RIOSChet FELICIANOOB: 4 (50 yo F)Acc No.[id number]:07/21/2025 Patient: Charlotte CANTU Provider: Camila Willingham MD :1975 A ge:49 Y S ex:Female Date:07/21/2025 Address:[address] [place], [place] [phone] Subjective: * Chief Complaints: * 1 . 0.5mg. * Medical History: Objective: * Vitals: Assessment: Plan: * Treatment: * Images: Billing Information: * Visit Code: * Procedure Codes: * Electronic signature of RISA WILLINGHAM MD on 09/14/2025 at 09:20 AM EDT Sign off status: Pending * Provider: Camila Willingham MD Date: 0 07/21/2025 Generated for Saadia franklin/Marni/Syed on: 1 09:20 AM EDT
--- OUTSIDE RECORDS SUMMARY | 2025-07-28 04:00 | XMS_ITS ---
Author Organization [facility] [address] Address [address] [place] [address] Care Team Providers Care Qa Intern Name Role Phone HUMPHREY DELUNA Unavailable [phone] JAE WILLINGHAM Unavailable [phone] REASON FOR VISIT 0.5mg Encounters Encounter Location Date Provider Diagnosis [facility] [place] [address] 07/28/2025 JAE WILLINGHAM Plan Of Treatment No Information Progress Notes * RIOSChet FELICIANOOB: 4 (50 yo F)Acc No.[id number]:07/28/2025 Patient: Charlotte CANTU Provider: Camila Willingham MD :1975 A ge:49 Y S ex:Female Date:07/28/2025 Address:[address] [place], [place] [phone] Subjective: * Chief Complaints: * 1 . 0.5mg. * Medical History: Objective: * Vitals: Assessment: Plan: * Treatment: * Images: Billing Information: * Visit Code: * Procedure Codes: * Electronic signature of RISA WILLINGHAM MD on 09/14/2025 at 09:18 AM EDT Sign off status: Pending * Provider: Camila Willingham MD Date: 0 07/28/2025 Generated for Saadia franklin/Marni/Syed on: 1 09:18 AM EDT
--- OUTSIDE RECORDS SUMMARY | 2025-08-01 09:30 | XMS_ITS ---
Author Organization [facility] Address [address] [place] [address] Care Team Providers Care Regulatory Attorney Name Role Phone HUMPHREY DELUNA Unavailable [phone] Encounters Encounter Location Date Provider Diagnosis [facility] [address] [place] [address] 08/01/2025 HUMPHREY DELUNA Plan Of Treatment No Information Progress Notes * Chet RIOSOB: 4 (50 yo F)Acc No.[id number]:08/01/2025 Patient: Charlotte CANTU Provider: Cory DELUNA PA-C :1975 A ge:49 Y S ex:Female Date:08/01/2025 Address:[address] [place], [place] [phone] Subjective: * Chief Complaints: * * Medical History: Objective: * Vitals: Assessment: Plan: * Treatment: * Images: Billing Information: * Visit Code: * Procedure Codes: * Electronic signature of FELICIANO DELUNA PA-C, [id number] on 09/14/2025 at 09:19 AM EDT Sign off status: Pending * Provider: Cory DELUNA PA-C Date: 0 08/01/2025 Generated for Saadia franklin/Marni/eTluis msmleigh on: 1 09:19 AM EDT
--- OUTSIDE RECORDS SUMMARY | 2025-09-14 09:19 | XMS_ITS | Clinical Summary ---
Author Organization [facility] Address [address] [address] Phone Care Team Providers Care Asset Protection Greeter Name Role Phone Ralph Ocampo Primary Care Provider [phone] Allergies Active Allergy Reactions Criticality Noted Date [...] seen on exam. She is taking an nnff-tbr-njrfwxs diuretic I asked her to stop it [...] Sigmoidoscopy 2023 Influenza Vaccine (#1) 2025 Insurance [facility] Care Teams Asset Protection Greeter Relationship Specialty Start Date End Date Ralph Ocampo [address] [place] [address] PCP - General 03/09/25
--- OUTSIDE RECORDS SUMMARY | 2025-09-14 09:19 | XMS_ITS | Clinical Summary ---
Author Organization [facility] Address [address] [place] [address] Care Team Providers Care Drawing Kiln Operator Name Role Phone Unavailable Primary Care Provider [...]
--- OUTSIDE RECORDS SUMMARY | 2025-09-14 09:19 | XMS_ITS | Patient Health Record ---
Author Organization [facility] [address] Address [address] [place] [address] Care Team Providers Care Deputy Commissioner Name Role Phone HUMPHREY DELUNA Unavailable [phone] [place], PUJAGEORGETTE Unavailable [phone] CLIFF MOULTON Unavailable [phone] PAN GARCES Unavailable [phone] Allergies No Known Allergies Reason For Referral [...] Status Risk Notes Problem Mild intermittent asthma (010974431) Mild intermittent asthma without complication (J45.20) Active confirmed Problem Body mass index 30+ - obesity (851126501) BMI 30.0-30.9,adult (Z68.30) Active confirmed Problem Overweight (002188759) Overweight (BMI 25.0-29.9) (E66.3) Active confirmed Problem Obesity (730586208) Obesity due to excess calories without serious comorbidity, unspecified classification (E66.09) Active confirmed Problem Exercise-induced asthma (47557411) Asthma, exercise induced (J45.990) Active confirmed Vital Signs Heart Rate 74 /min 05/22/2025 Oximetry 94 % 05/22/2025 Blood pressure diastolic 82 mm Hg 05/22/2025 Height 61 in 05/22/2025 Blood pressure systolic 132 mm Hg 05/22/2025 Weight 136.1 lbs 05/22/2025 BMI 25.71 kg/m2 05/22/2025 Encounters Encounter Location Date Provider Diagnosis [facility] [address] [place] [address] 10/12/2024 CLIFF WALSHT [facility] [address] [place] [address] 10/19/2024 TALAL [place] [facility] [address] [place] [address] 10/26/2024 TALAL [place] [facility] [address] [place] [address] 02/18/2025 TALAL [place] [facility] [address] [place] [address] 02/23/2025 PAN GARCES [facility] [address] [place] [address] 03/03/2025 TALAL [place] [facility] [address] [place] [address] 03/11/2025 TALAL [place] [facility] [address] [place] [address] 03/24/2025 TALAL [place] [facility] [address] [place] [address] 03/31/2025 TALAL [place] [facility] [address] [place] [address] 04/07/2025 TALAL [place] [facility] [address] [place] [address] 04/14/2025 TALAL [place] [facility] [address] [place] [address] 04/21/2025 TALAL [place] [facility] [address] [place] [address] 04/28/2025 TALAL [place] [facility] [address] [place] [address] [place] [address] 05/05/2025 TALAL [place] [facility] [address] [place] [address] 05/12/2025 TALAL [place] [facility] [address] [facility] [address] 05/18/2025 TALAL [place] [facility] [address] [facility] [place] 05/26/2025 TALAL [place] [facility] [address] [place] [address] 06/02/2025 TALAL [place] [facility] [address] [facility], [place] 06/09/2025 TALAL [place] [facility] [address] [place] [address] 06/16/2025 TALAL [place] [facility] [address] [facility], [place] 06/23/2025 TALAL [place] [facility] [address] [facility], [place] 06/30/2025 TALAL [place] [facility] [address] [facility], [place] 10/05/2024 HUMPHREY MIKIE Asthma, exercise induced J45.[address] [facility] [facility], [place] 11/14/2024 HUMPHREY MIKIE Asthma, exercise induced J45.990 and BMI 23.0-23.9, adult Z68.[address] [facility] [facility] [address] 02/10/2025 HUMPHREY MIKIE Overweight (BMI 25.0-29.9) E66.3 ; BMI 26.0-26.9,adult Z68.26 and Asthma, exercise induced J45.[address] [facility] [address] 03/16/2025 HUMPHREY MIKIE Overweight (BMI 25.0-29.9) E66.3 ; BMI 26.0-26.9,adult Z68.26 ; Asthma, exercise induced J45.990 and Nutritional counseling Z71.[address] [facility] [facility] [address] 05/22/2025 HUMPHREY MIKIE BMI 25.0-25.9,adult Z68.25 ; Overweight (BMI 25.0-29.9) E66.3 ; Asthma, exercise induced J45.990 ; Nutritional counseling Z71.3 and Encounter for examination of blood pressure without abnormal findings Z01.30 [facility] [address] [place] [address] 01/04/2025 HUMPHREY ROSALESUPA Assessments Encounter Date Diagnosis (ICD Code) Assessment [...] Dictation was accomplished with the use of Assistera voice recognition software, prone to medical misidentifications [...] Dictation was accomplished with the use of Assistera voice recognition software, prone to medical misidentifications [...] Dictation was accomplished with the use of Assistera voice recognition software, prone to medical misidentifications [...] Dictation was accomplished with the use of Assistera voice recognition software, prone to medical misidentifications [...] Dictation was accomplished with the use of Assistera voice recognition software, prone to medical misidentifications [...] Dictation was accomplished with the use of Assistera voice recognition software, prone to medical misidentifications [...] Dictation was accomplished with the use of Assistera voice recognition software, prone to medical misidentifications [...] Discussed tapering up process. Will send to [facility] today. Plan to follow-up in 6 [...] Dictation was accomplished with the use of Assistera voice recognition software, prone to medical misidentifications [...] Dictation was accomplished with the use of Assistera voice recognition software, prone to medical misidentifications [...] Discussed tapering up process. Will send to [facility] today. Plan to follow-up in 6 [...] Dictation was accomplished with the use of Assistera voice recognition software, prone to medical misidentifications [...] Dictation was accomplished with the use of Assistera voice recognition software, prone to medical misidentifications [...] Dictation was accomplished with the use of Assistera voice recognition software, prone to medical misidentifications [...] Dictation was accomplished with the use of Assistera voice recognition software, prone to medical misidentifications [...] Discussed tapering up process. Will send to [facility] today. Plan to follow-up in 6 [...] care coordination Case discussed with collaborating physician Cmaila Willingham who reviewed the assessment and plan. Chart, medications, labs, vital signs reviewed. Dictation was accomplished with the use of Assistera voice recognition software, prone to medical misidentifications [...] Discussed tapering up process. Will send to [facility] today. Plan to follow-up in 6 [...] Dictation was accomplished with the use of Assistera voice recognition software, prone to medical misidentifications [...] Insured Coverage Start Date Coverage End Date [facility] [address] [place] [address] [phone] [id number] Charlotte Rios Self - patient is the insured 2 Medications Administered Medication Instructions Date of Administration Dosage Notes Semaglutide 05/27/2023 Semaglutide 06/03/2023 lot # [id number] 0.25mg Semaglutide 06/11/2023 0.25 mg L tricep SQ Semaglutide 06/17/2023 sema 0.25mg Semaglutide 06/23/2023 0.5 mg LRQ SQ Semaglutide 07/01/2023 sema 0.5mg Semaglutide 07/09/2023 0.5 mg LLQ SQ Semaglutide 07/15/2023 0.5 mg LLQ SQ Semaglutide 07/22/2023 sema 0.5mg Semaglutide 07/29/2023 lot#[id number] 0.5mg Semaglutide 08/05/2023 sema 0.5mg Semaglutide 08/17/2023 lot# [id number] 0.5mg Semaglutide 08/31/2023 0.5 sema 0.5mg Semaglutide [...] .5 mg Semaglutide 06/09/2025 0.5 mg lot# [id number] Semaglutide 06/16/2025 .5 mg Semaglutide 06/23/2025 0.5 mg lot# [id number] 0.5mg Semaglutide 06/30/2025 0.5 mg Medical (General) History Medical History History ICD Code asthma angina weight loss/gain hemorrhoids headache anxiety depression seasonal allergies Surgical History Surgery Date(Month/Year) hysterectomy
--- OUTSIDE RECORDS SUMMARY | 2025-09-14 09:19 | XMS_ITS | Encounter Summary ---
Author Organization [facility] Address [address] [place] [address] Care Team Providers Care Inspector Penetrant Name Role Phone Ralph Ocampo MD Primary Care Provider [phone] Encounter Details Date Type Department Care Team ([facility] st Contact Info) Description 08/31/2025 Results Follow-Up Internal Medicine - [address] [place] [address] Gail Payton MA Social History Tobacco Use Types Packs/Day Years Used Date Smoking Tobacco: Never Smokeless Tobacco: Never Alcohol Use Standard Drinks/Week Comments Never 0 [...] ed Within the last 3 months, ho homero many times did you visit the emergency [...] care for your loved ones. For example, childcare director or elderly care for an older adult? [...] file Not on file Not on file documented as of this encounter Plan of Treatment Upcoming Encounters Date Type Department Care Team (Late st Contact Info) Description 11/08/2025 1:00 PM EST Office Visit Urogynecology [address] [address] Yuni Rodas MD [address] [place] [address] [address] [place] [address] documented as of this encounter Visit Diagnoses Not on filedocumented in this encounter Additional Health Concerns Assessment Noted Time PHQ-9 Depression Total Score: 0 08/09/20 25 9:44 AM EDT documented as of this encounter Care Teams Inspector Penetrant Relationship Specialty Start Date End Date Ralph Ocampo MD [address] [place] [address] PCP - General Internal Medicine 09/28/24 documented as of this encounter
--- OUTSIDE RECORDS SUMMARY | 2025-09-14 09:19 | XMS_ITS | Data Portability ---
Author Organization [facility] [employer] [facility], [id number] Address [address] [facility] [address] [place] [address] Care Team Providers Care Civil Transportation Engineer Name Role Phone SHANA NAJERA Primary Care Provider [phone] SHANA NAJERA Referring Provider Assessment Encounter Date [...] in the community and examining the patient. [email or web address] Not available 09/23/2024 10:01:02 Plan of Treatment Reminders Order Date Submit Date Provider Last Modified By Organization Details Last Modified Time Details Appointments None recorded. Lab None recorded. Referral None recorded. Procedures None recorded. Surgeries None recorded. Imaging None recorded. Medication Orders methocarba mol 500 mg tablet 2023 024 [id number], [address] [place], [address], 09:58:10 Patient TargetsNo targets recorded. Patient InstructionsNo instructions recorded. Reason for Referral None Reported. Results Created Date Observation Date Name Description Value Unit Range Abnormal Flag Note LastModifiedBy Organization Detail LastModifiedTime 09/26/20 24 09/26/2024 EMG 2 limbs No observ ation record ed. [email or web address] [facility] ([facility] Central Scheduling) [facility], [place], [address], 10/04/2024 11:53:26 09/28/20 24 09/26/2024 lower extre mity elect romyo gram (PROC ) No observ ation record ed. [email or web address] Shana Lackey MD [address] [place] [address], [address], 10/28/2024 07:56:37 10/07/20 MRI, lumba r spine , w/o contr ast No observ ation record ed. [email or web address] Not Available 2023 08:00:29 10/27/2006/22/2024 XR, lumbo sacra l spine No observ ation record ed. [email or web address] Not Available 2023 08:53:16 10/28/20 24 10/28/2024 xr fluor o up to 1 hour See Note [facility] , a member of [facility] Name: CHARLOTTE Jacques Date of : 1974 Reason for Exam: pain Exam Date: 2023 [id number] EST Report Status : Final Orderi ng [...] Edit Transc ribed Date: 2023 11:07 ET [email or web address] [address] [place], [address], 10/28/2024 13:04:28 Result Notes None recorded. Problems Name Problem SNOMED Code Status Onset Date Resolution Date Notes Provider Name and Address Organization Details Recorded Time Asthma 592318759 Active 2023 Lianne Stock null, [facility] 4 11:32:27 Dizziness 201385248 Active 2023 Lianne Stock null, [facility] 4 11:32:36 Dyspnea 578572091 Active 2023 Lianne Stock null, [facility] 4 11:32:45 Ganglion cyst of right dorsal wrist 591846254 Active 2023 Lianne Stock null, [facility] 4 11:33:09 Irritable bowel syndrome 32764656 Active 2023 Lianne Stock null, [facility] 4 11:33:20 Insomnia 226625567 Active 2023 Lianne Stock null, [facility] 4 11:33:31 Migraine 65401661 Active 2023 Lianne Stock null, [facility] 4 11:33:40 Palpitations 59584767 Active 2023 Lianne Stock null, [facility] 4 11:33:48 Swelling 02351524 Active 2023 Lianne Stock null, [facility] 4 11:33:55 Serum vitamin B12 below reference range 938048007 Active 2023 Lianne Stock null, [facility] 4 12:24:58 Serum iron below reference range 855615979 Active 2023 Lianne Stock null, [facility] 4 12:31:50 Problem Notes None recorded. Procedures Surgical History Date Name Laterality Status Provider Name and Address Organization Details Recorded Time hysterectomy completed Lianne Stock [facility] 09/22/2024 11:35:27 Pt had hyst completed Not Available [facility] 01/24/2025 03:44:56 Imaging Results None recorded. Procedure Notes None recorded. Medical Equipment None Reported. Allergies Allergen ID Allergen Name Allergen Category Reaction Reaction Severity Criticality Documentation Date Start Date Code Code System Note Provider Name and Address Organization Details Recorded Time 94531 Hayfever medicatio n Not available Not available Not available 12/27/20242023 Not Available [facility] 5 15:48:44 671 animal dander environme nt Not available Not available Not available 09/22/2024 [facility] 10:13:42 683 grass pollen environme nt,medica tion Not available Not available Not available 09/22/2024 [facility] 4 11:31:33 Medications Name Sig Start [...] History Nothing Reported. Medical History Condition Response Irritable Bowel Syndrome Y Allergies/Hayfever Y Migraines Y Asthma Y Gynecological HistoryNo gynecological history recorded. Obstetrics History GPAL:G 0 P 0 0 0 0 Past Encounters Encounter ID Performer Location Encounter Start Date Encounter Closed Date Diagnosis/Indication Diagnosis SNOMED-CT Code Diagnosis ICD10 Code Diagnosis IMO Codes Diagnosis Note [id number] Shana Lackey MD [id number] [place] [address] [place] [address] 09/23/2024 09:05:08 09/23/2024 10:14:04 Lumbar radiculopathy 495955104 M54.16 Health Concerns Section Related Observation LastModified by Organization Detai ls LastModified Time None Recorded Concern Status LastModified by Organization Details LastModified Time None Recorded Advance Directives Directive None Recorded Payers Insurance Date Sequence Insurance Name Policy Number Policy Lopez Covered Member ID Lopez Member ID Guarantor Name 10/25/2024 1 [id number]MEDIC[place]AC[place]/ ADVANTAGE - PPO) [id number] Charlotte Rios [id number] Charlotte Rios Notes Date Note Type [...] multilevel DJD. See report. Shana Lackey MD [facility], [place] [facility] 09/23/2024 10:01:33 OBGyn Episode No OBEpisode recorded.
--- OUTSIDE RECORDS SUMMARY | 2025-09-14 09:20 | XMS_ITS | Clinical Summary ---
Author Organization [facility] [place] [address] Phone Care Team Providers Care Salon Stylist Name Role Phone Ralph Ocampo MD Primary Care Provider [phone] Allergies Active Allergy Reactions Criticality Noted Date [...] seen on exam. She is taking an gpdh-ymq-blknygj diuretic I asked her to stop it [...] Encounters Date Type Department Care Team Description 08/31/2025 Results [facility] [place] Bash[place] [phone] Gail Payton MA 08/16/2025 2:30 PM EDT [facility] [address] [place] [phone] Hill, Brina, CNM Prolapse of female pelvic organs (Primary Dx) 07/26/2025 8:45 AM EDT Office Visit Internal Medicine - [address] [phone] Eleazar Ojeda PA Dizziness (Primary Dx); Chronic migraine without aura without status migrainosus, not intractable; Mild intermittent asthma without complication 06/19/2025 Telephone Obstetrics and Gynecology - [address] [phone] Estefany Casey DO from Last 3 Months Immunizations Immunization Administration [...] Comments Diabetes Brother Laci Kaur Arthritis Mother Judy Kaur Diabetes Mother Judy Kaur Hypertension Mother Judy Kaur Breast cancer Neg Hx Relation Name Status Comments Brother Laci Kaur Mother Judy Kaur Social History Tobacco Use Types Packs/Day Years [...] care for your loved ones. For example, early childhood education specialist or elderly care for an older adult? [...] 11/08/2025 1:00 PM EST Office Visit Urogynecology [address] [address] Yuni Rodas MD [address] [place] [address] [address] [place] [address] Health Maintenance Due Date Last Done Comments [...] Procedure Name Priority Date/Time Associated Diagnosis Comments EXTERNAL CLINICAL LAB 08/31/2025 THYROID STIMULATING HORMONE WITH REFLEX TO FREE T4 AND FREE T3 Routine 07/26/2025 9:11 AM EDT Dizziness COMPREHENSIVE METABOLIC PANEL Routine 07/26/2025 9:11 AM EDT Dizziness MAGNESIUM Routine 07/26/2025 9:11 AM EDT Dizziness MG MAMMO DIGITAL SCREENING W JOSE DE JESUS BILAT Routine 02/27/2025 7:19 AM EDT Encounter for screening mammogram for malignant neoplasm of breast LIPID PANEL WITH REFLEX TO DIRECT LDL Routine 11/23/2024 9:14 AM EST Mixed hyperlipidemia from Last 3 Months or Most Recently Relevant to Health Maintenance Results * External clinical lab (08/31/2025) Provider [facility] LAB BLOOD ORDERABLES Fin al Result * Thyroid stimulating hormone with reflex to free t4 and free t3 (07/26/2025 9:11 AM EDT) [facility] TSH 0.61 0.40 - 4.00 mcIU/mL LAB CHEMISTRY METHOD 07/26/2025 3:16 PM EDT [facility] Blood Venous blood specimen / Unknown Venipuncture / Unknown 07/26/2025 9:11 AM EDT 07/26/2025 9:11 AM EDT Eleazar LOREDO LAB BLOOD ORDERABLES Fi nal Result [facility] [address] [place] [address], [place] [phone] * Magnesium (07/26/2025 9:11 AM EDT) [facility] Magnesium 2.5 1.9 - 2.6 mg/dL LAB CHEMISTRY METHOD 07/26/2025 2:19 PM EDT [facility] Blood Venous blood specimen / Unknown Venipuncture / Unknown 07/26/2025 9:11 AM EDT 07/26/2025 9:11 AM EDT Eleazar LOREDO LAB BLOOD ORDERABLES Fi nal Result [facility] [address] [place] [address], [place] [phone] * Comprehensive metabolic panel (07/26/2025 9:11 AM EDT) [facility] Sodium 137 133 - 145 mmol/L LAB CHEMISTRY METHOD 07/26/2025 2:31 PM [facility] Potassium 4.4 3.5 - 5.5 mmol/L LAB CHEMISTRY METHOD 07/26/2025 2:31 PM [facility] Chloride 107 96 - 110 mmol/L LAB CHEMISTRY METHOD 07/26/2025 2:31 PM [facility] CO2 27 21 - 32 mmol/L LAB CHEMISTRY METHOD 07/26/2025 2:31 PM [facility] Anion Gap 3 3 - 11 LAB CHEMISTRY METHOD 07/26/2025 2:31 PM [facility] Glucose 72 70 - 100 mg/dL LAB CHEMISTRY METHOD 07/26/2025 2:31 PM [facility] BUN 10 5 - 25 mg/dL LAB CHEMISTRY METHOD 07/26/2025 2:31 PM [facility] Creatinine 0.52 0.50 - 1.10 mg/dL LAB CHEMISTRY METHOD 07/26/2025 2:31 PM [facility] eGFR 113 >=60 mL/min/1. 73m2 LAB CHEMISTRY METHOD 07/26/2025 2:31 PM [facility] Comment:Calculation based on the Chronic Kidney Disease Epidemiology Collaboration (CKD-EPI) equation refit without adjustment for race. BUN/Creatinine Ratio 19.2 LAB CHEMISTRY METHOD 07/26/2025 2:31 PM [facility] Calcium 9.5 8.5 - 10.5 mg/dL LAB CHEMISTRY METHOD 07/26/2025 2:31 PM [facility] AST (SGOT) 20 10 - 42 unit/L LAB CHEMISTRY METHOD 07/26/2025 2:31 PM [facility] ALT (SGPT) 26 10 - 60 unit/L LAB CHEMISTRY METHOD 07/26/2025 2:31 PM [facility] Alkaline Phosphatase 52 42 - 121 unit/L LAB CHEMISTRY METHOD 07/26/2025 2:31 PM EDT [facility] Total Protein 7.6 6.0 - 8.0 g/dL LAB CHEMISTRY METHOD 07/26/2025 2:31 PM EDT [facility] Albumin 4.0 3.2 - 5.0 g/dL LAB CHEMISTRY METHOD 07/26/2025 2:31 PM EDT [facility] Total Bilirubin 0.3 0.0 - 1.4 mg/dL LAB CHEMISTRY METHOD 07/26/2025 2:31 PM EDT [facility] Blood Venous blood specimen / Unknown Venipuncture / Unknown 07/26/2025 9:11 AM EDT 07/26/2025 9:11 AM EDT Eleazar LOREDO LAB BLOOD ORDERABLES Fi nal Result [facility] [address] [place] [address], * MG Mammo Digital Screening w Jose [...] M[facility]: [facility] [address] [place], [address] -------- FINAL REPORT -------- Dictated By: Efrain Watts Dictated Date: 02/27/2025 10:57 ET Assigned Physician: Efrain Watts Reviewed and Electronically Signed By: Efrain Watts Signed Date: 02/27/2025 11:20 ET Workstation ID: [id number] Transcribed By: Self Edit Transcribed Date: 02/27/2025 10:57 ET Narrative 02/27/2025 11:20 AM EDT EXAM: SCREENING MAMMOGRAPHY, BILATERAL HISTORY: SCREENING. No additional history. COMPARISON: 02/18/24, 02/16/23, 12/18/21, 12/17/20 TECHNIQUE: Synthesized CC and MLO projections of each breast. Tomosynthesis of each breast in the CC and MLO projections. ADDITIONAL IMAGING: None Computer-aided detection was employed with the [employer] AI 3-D. TISSUE DENSITY: There are scattered [...] None Computer-aided detection was employed with the [employer] AI 3-D. TISSUE DENSITY: There are scattered [...] year. Mammography location: [facility] [address], [address] -------- FINAL REPORT -------- Dictated By: Efrain Watts Dictated Date: 02/27/2025 10:57 ET Assigned Physician: Efrain Watts Reviewed and Electronically Signed By: Efrain Watts Signed Date: 02/27/2025 11:20 ET Workstation ID: [id number] Transcribed By: Self Edit Transcribed Date: 02/27/2025 10:57 ET us Dennise Cha CN IMG BI PROCEDURES Final Res ult * (ABNORMAL) Lipid panel with reflex to direct LDL (11/23/2024 9:14 AM EST) Cholesterol 198 0 - 200 mg/dL LAB CHEMISTRY METHOD 11/23/2024 12:36 PM EST [facility] Triglycerides 54 0 - 150 mg/dL LAB CHEMISTRY METHOD 11/23/2024 12:36 PM EST [facility] HDL 72 >=40 mg/dL LAB CHEMISTRY METHOD 11/23/2024 12:36 PM EST [facility] LDL Calculated 115(H) 0 - 100 mg/dL LAB CHEMISTRY METHOD 11/23/2024 12:36 PM EST [facility] VLDL Cholesterol Brenton 10.8 mg/dL LAB CHEMISTRY METHOD 11/23/2024 12:36 PM EST [facility] Non HDL Chol. (LDL+VLDL) 126 <145 mg/dL LAB CHEMISTRY METHOD 11/23/2024 12:36 PM EST [facility] Chol/HDL Ratio 2.8 0.0 - 4.4 LAB CHEMISTRY METHOD 11/23/2024 12:36 PM EST [facility] Blood Venous blood specimen / Unknown Venipuncture / Unknown 11/23/2024 9:14 AM EST 11/23/2024 9:14 AM EST us Ralph Ocampo MD LAB BLOOD ORDERABLES Final Resu lt [facility] [address] [place] [address], from Last 3 Months or Most Recently Relevant to Health Maintenance Insurance [facility] Care Teams Salon Stylist Relationship Specialty Start Date End Date Ralph Ocampo MD [address] [place] [address] PCP - General Internal Medicine 09/28/24
--- OUTSIDE RECORDS SUMMARY | 2025-09-14 09:20 | XMS_ITS | Data Portability ---
Author Organization [place] [facility] Idalia Singh [place] Address [address] [place] [address] Care Team Providers Care Tractor Engine Mechanic Name Role Phone XIMENA OLIVAS Referring Provider XIMENA OLIVAS Primary Care Provider [phone] Assessment Encounter Date Assessment Date Assessment LastModified [...] By Organization Details Last Modified Time 11/04/2023 53936 You have been provided with a cortisone [...] Recorded Time Ganglion cyst of left hand 758204933210610 Active 2022 Swati martinez MD [address] [facility],[address], [place], [address], [place] [facility] 13:19:19 Problem Notes None recorded. Procedures Surgical History Date Name Laterality Status Provider Name and Address Organization Details Recorded Time 11/04/20 23 Ganglion Cyst Asp & Inj completed Swati Viveros MD [address] [facility] [address], [place], [address], [place] [facility] 11/04/2023 13:17:56 hysterectomy completed [facility] 11/04/2023 11:22:17 Removal of ovarian cyst(s) completed [facility], [facility] 11/04/2023 11:22:26 Imaging Results None recorded. Procedure Notes None recorded. Medical Equipment None Reported. Allergies Allergen ID Allergen Name Allergen Category Reaction Reaction Severity Criticality Documentation Date Start Date Code Code System Note Provider Name and Address Organization Details Recorded Time 40180 POLLEN EXTRACTS environme nt,medica tion Not available Not available Not available 11/04/2023 33380 6 [facility], [facility] 3 11:19:27 04582 house dust allergeni c extract environme nt,medica tion Not available Not available Not available 11/04/2023 29898 9 RxNorm [facility], [facility], P 3 11:19:39 72425 tree and shrub pollen environme nt,medica tion Not available Not available Not available 11/04/2023 [place]e [place] [facility], [facility] 3 11:19:54 70841 Canis lupus familiari s extract environme nt Not available Not available Not available 11/04/2023 55475 4 RxNorm [facility], [facility] 3 11:20:01 51020 cockroach environme nt Not available Not available Not available 11/04/2023 Kylee [place] [facility], [facility] 3 11:20:10 Medications Name Sig Start [...] Updated DateTime 11/04/2023 157.48 cm 23.8 kg/m2 79220.[address] [facility], P 11/04/2023 11:20:26 Social History None recorded. [...] ICD10 Code Diagnosis IMO Codes Diagnosis Note [id number] MD KULDIP Salazar [address] [place] [address] 11/04/2023 10:45:04 11/04/2023 13:05:13 Ganglion cyst of left hand 3606403887 70114 M67.442 Health Concerns Section Related Observation LastModified by Organization Detai ls LastModified Time None Recorded Concern Status LastModified by Organization Details LastModified Time None Recorded Advance Directives Directive None Recorded Payers Insurance Date Sequence Insurance Name Policy Number Policy Lopez Covered Member ID Lopez Member ID Guarantor Name 12/24/2023 1 [employer] (PPO) [id number] Charlotte Rios [id number] Charlotte Rios Notes Date Note Type Note Provider Name and Address Organization Details Recorded Time 11/04/2023 text/html ROS as noted in the HPI This is a 48-year-old kcwya-xfgn-oznboa nt female who is presenting with a [...] follow-up with hand doctor. Swati Viveros MD [address] [place] [address], [address], [place] [facility], P 11/04/2023 13:24:37 OBGyn Episode No OBEpisode recorded.
--- OUTSIDE RECORDS SUMMARY | 2025-09-14 09:20 | XMS_ITS | Clinical Summary ---
Author Organization [facility] Address [address] [place] [address] Care Team Providers Care Construction Inspector Name Role Phone Bridger Craven MD Primary Care Provider [phone] Allergies Active Allergy Reactions Criticality Noted Date [...] age to complete this topic Care Teams Construction Inspector Relationship Specialty Start Date End Date Bridger Craven MD PCP - General Internal Medicine 06/23/24
--- NOTE | 2025-09-14 09:47 | EEG_ITS ---
Reason for Exam: R42 dizziness and giddiness Roomed Performed:?402 History: migraines - Patient reports episodes of lightheadedness and dizziness, last one being 3 days ago. Patient states once they happen she is wiped out for the rest of the day. Last meal was yesterday at 7pm. Medication: albuterol, estradiol, montelukast, plecanatide, sumatriptan succinate, topiramate Technical description Photic stimulation: completed Hyperventilation:?good effort Behavioral state: cooperative State of Consciousness: awake and drowsy Skull defect: none Sedation: none Handedness: right Duration of study:?31 min 34? sec Description: The waking background activity consists of a well-defined moderate voltage 9 hertz posterior alpha frequency that attenuates well with eye opening and is intermixed anteriorly with low-voltage fast frequencies and muscle artifact. During sleep symmetrical frontocentral sleep spindles, vertex sharp transient and K complexes develop over both hemispheres. Photic stimulation is without activation. Hyperventilation produces no significant change in the background activity. No focal, lateralizing or paroxysmal discharges are seen Impression: This awake and sleep [facility] is within [facility] limits [facility]
== END 2025-09-14 08:32 | disposition home or self-care (01) ==
LOC: HO.NEURO 08:31
PROVIDERS: PCP Internal Medicine; Visit Provider Psychiatry & Neurology Neurology
DX: R42 Dizziness and giddiness (principal)
CPT/HCPCS: 95816

== ENCOUNTER → 2025-09-14 09:47 | Outpatient (BNV) | payer BC, SELFPAY | PROVIDERS: PCP Internal Medicine; Visit Provider Psychiatry & Neurology Neurology | DX: R42 Dizziness and giddiness (principal) | CPT/HCPCS: 95816 ==

== ENCOUNTER 2025-11-04 14:20 | Outpatient (REF) | payer BC, SELFPAY ==
--- OUTSIDE RECORDS SUMMARY | 2025-05-12 03:00 | XMS_ITS ---
Author Organization [facility] Address [address] [place] [address] Care Team Providers Care Space Scheduler Name Role Phone HUMPHREY DELUNA Unavailable [phone] ANANTH JAE Unavailable [phone] REASON FOR VISIT Patient is here for sema 0.5mg. Patient signed consent and left the office in stable condition Medications Medication SIG (Take, Route, Frequency, Duration) Notes Start Date End Date Status Montelukast Sodium 10 MG Tablet 1 tablet Orally Once a day A ctive Estradiol 0.05 MG/24HR Patch Twice Weekly 1 patch to skin Transdermal Two times a Week Active Topamax 50 MG Tablet 1 tablet Orally Once a day Active Ventolin HFA 108 (90 Base) MCG/ACT Aerosol Solution 1 puff as needed Inhalation every 4 hrs Active Encounters Encounter Location Date Provider Diagnosis [facility] [address] [place] [address] 05/12/2025 JAE WILLINGHAM Plan Of Treatment No Information Medications Administered Medication Instructions Date of Administration Dosage Notes Semaglutide 05/12/2025 0.5 mg Progress Notes * RIOS LoreJacqueOB: 4 (50 yo F)Acc No.[id number]:05/12/2025 Patient: Charlotte Watson Provider: Camila Willingham MD :1975 A ge:49 Y S ex:Female Date:05/12/2025 Address:[address] [place], [place] [address] Subjective: * Chief Complaints: * P atient is here for sema 0.5mg. Patient signed consent and left the office in stable condition * Medications: T akingTopamax 50 MG Tablet 1 tablet Orally Once a day Montelukast Sodium 10 MG Tablet 1 tablet Orally Once a day Estradiol 0.05 MG/24HR Patch Twice Weekly 1 patch to skin Transdermal Two times a Week Ventolin HFA 108 (90 Base) MCG/ACT Aerosol Solution 1 puff as needed Inhalation every 4 hrs Taking Topamax 50 MG Tablet 1 tablet Orally Once a day Taking Montelukast Sodium 10 MG Tablet 1 tablet Orally Once a day Taking Estradiol 0.05 MG/24HR Patch Twice Weekly 1 patch to skin Transdermal Two times a Week Taking Ventolin HFA 108 (90 Base) MCG/ACT Aerosol Solution 1 puff as needed Inhalation every 4 hrs Plan: * Therapeutic Injections: Semaglutide : 0.5 mg (Route: Subcutaneous) given by Tomer Turcios on right arm subcutaneous * Electronic signature of RISA WILLINGHAM MD on 11/04/2025 at 02:24 PM EST Sign off status: Pending * Provider: Camila Willingham MD Date: 0 05/12/2025 Generated for Saadia franklin/Marni/Syed on: 1 01/05/2025 02:24 PM EST
--- OUTSIDE RECORDS SUMMARY | 2025-05-18 03:00 | XMS_ITS ---
Author Organization [facility] Address [address] [place] [address] Care Team Providers Care Fixed Wing Aircraft Crew Chief Name Role Phone HUMPHREY EDLUNA Unavailable [phone] JAE WILLINGHAM Unavailable [phone] REASON FOR VISIT pt here for sema .5mg, tolerated well Medications Medication SIG (Take, Route, Frequency, Duration) Notes Start Date End Date Status Ventolin HFA 108 (90 Base) MCG/ACT Aerosol Solution 1 puff as needed Inhalation every 4 hrs Active Estradiol 0.05 MG/24HR Patch Twice Weekly 1 patch to skin Transdermal Two times a Week Active Montelukast Sodium 10 MG Tablet 1 tablet Orally Once a day A ctive Topamax 50 MG Tablet 1 tablet Orally Once a day Active Encounters Encounter Location Date Provider Diagnosis [facility] [address] [place] [address] 05/18/2025 JAE WILLINGHAM Plan Of Treatment No Information Medications Administered Medication Instructions Date of Administration Dosage Notes Semaglutide 05/18/2025 .5 mg Progress Notes * RIOS LoreJacqueOB: 4 (50 yo F)Acc No.[id number]:05/18/2025 Patient: Charlotte Watson Provider: Camila Willingham MD :1975 A ge:49 Y S ex:Female Date:05/18/2025 Address:[address] [place], [place] [address] Subjective: * Chief Complaints: * P t here for sema .5mg, tolerated well * Medications: T akingTopamax 50 MG Tablet [...] hrs Plan: * Therapeutic Injections: Semaglutide : .5 mg (Route: Subcutaneous) given by Janet Quach on subcutaneus * Electronic signature of RISA WILLINGHAM MD on 11/04/2025 at 02:25 PM EST Sign off status: Pending * Provider: Camila Willingham MD Date: 0 05/18/2025 Generated for Saadia franklin/Marni/Syed on: 1 01/05/2025 02:25 PM EST
--- OUTSIDE RECORDS SUMMARY | 2025-05-26 03:15 | XMS_ITS ---
Author Organization [facility] [address] Address [address] [place] [address] Care Team Providers Care Associate Faculty Name Role Phone HUMPHREY DELUNA Unavailable [phone] JAE WILLINGHAM Unavailable [phone] REASON FOR VISIT Patient is here for sema 0.5mg. Patient signed consent and left the office in stable condition Medications Medication SIG (Take, Route, Frequency, Duration) Notes Start Date End Date Status Contrave 8-90 MG Tablet Extended Release 12 Hour 1 tab in AM x 1 week 1 tab in AM 1 tab in PM for 1 week, 2 tab in AM 1 tab in PM for 1 week the 2 tabs twice daily Orally Once a day; Duration: 30 days 05/22/2025 Active Estradiol 0.05 MG/24HR Patch Twice Weekly [...] Active Encounters Encounter Location Date Provider Diagnosis [facility] [address] [place] [address] 05/26/2025 JAE WILLINGHAM Plan Of Treatment No Information Medications Administered Medication Instructions Date of Administration Dosage Notes Semaglutide 05/26/2025 0.5 mg Progress Notes * Chet RIOSOB: 4 (50 yo F)Acc No.[id number]:05/26/2025 Patient: Charlotte Watson Provider: Camila Willingham MD :1975 A ge:49 Y S ex:Female Date:05/26/2025 Address:[address] [place], [place] [address], [facility] Subjective: * Chief Complaints: * P atient [...] puff as needed Inhalation every 4 hrs Contrave 8-90 MG Tablet Extended Release 12 Hour 1 tab in AM x 1 week 1 tab in AM 1 tab in PM for 1 week, 2 tab in AM 1 tab in PM for 1 week the 2 tabs twice daily Orally Once a day Taking Topamax 50 MG Tablet 1 tablet Orally Once a day Taking Montelukast Sodium 10 MG Tablet 1 tablet Orally Once a day Taking Estradiol 0.05 MG/24HR Patch Twice Weekly 1 patch to skin Transdermal Two times a Week Taking Ventolin HFA 108 (90 Base) MCG/ACT Aerosol Solution 1 puff as needed Inhalation every 4 hrs Taking Contrave 8-90 MG Tablet Extended Release 12 Hour 1 tab in AM x 1 week 1 tab in AM 1 tab in PM for 1 week, 2 tab in AM 1 tab in PM for 1 week the 2 tabs twice daily Orally Once a day Plan: * Therapeutic Injections: Semaglutide : 0.5 mg (Route: Subcutaneous) given by Tomer Turcios on right arm subcutaneous * Electronic signature of RISA WILLINGHAM MD on 11/04/2025 at 02:25 PM EST Sign off status: Pending * Provider: Camila Willingham MD Date: 0 05/26/2025 Generated for Saadia franklin/Marni/Syed on: 1 01/05/2025 02:25 PM EST
--- OUTSIDE RECORDS SUMMARY | 2025-06-02 03:00 | XMS_ITS ---
Author Organization [facility] [address] Address [address] [place] [address] Care Team Providers Care Police Dispatcher Name Role Phone HUMPHREY DELUNA Unavailable [phone] JAE WILLINGHAM Unavailable [phone] REASON FOR VISIT pt presents for nurse visit. sema .5mg administered. pt tolerated well, consent form signed Medications Medication SIG (Take, Route, Frequency, Duration) Notes Start Date End Date Status Topamax 50 MG Tablet 1 tablet Orally Once a day Active Ventolin HFA 108 (90 Base) MCG/ACT Aerosol Solution 1 puff as needed Inhalation every 4 hrs Active Contrave 8-90 MG Tablet Extended Release 12 Hour 1 tab in AM x 1 week 1 tab in AM 1 tab in PM for 1 week, 2 tab in AM 1 tab in PM for 1 week the 2 tabs twice daily Orally Once a day; Duration: 30 days 05/22/2025 Active Montelukast Sodium 10 MG Tablet 1 tablet Orally Once a day A ctive Estradiol 0.05 MG/24HR Patch Twice Weekly 1 patch to skin Transdermal Two times a Week Active Encounters Encounter Location Date Provider Diagnosis [facility] [address] [place] [address] 06/02/2025 JAE WILLINGHAM Plan Of Treatment No Information Medications Administered Medication Instructions Date of Administration Dosage Notes Semaglutide 06/02/2025 .5 mg Progress Notes * Chet RIOSOB: 4 (50 yo F)Acc No.[id number]:06/02/2025 Patient: Charlotte Watson Provider: Camila Willingham MD :1975 A ge:49 Y S ex:Female Date:06/02/2025 Address:[address] [place], [place] [address], [place] Subjective: * Chief Complaints: * P t presents for nurse visit. sema .5mg administered. pt tolerated well, consent form signed * Medications: T akingTopamax 50 MG Tablet [...] day Plan: * Therapeutic Injections: Semaglutide : .5 mg (Route: Subcutaneous) given by Soraida Macario on left arm subcutaneous * Electronic signature of RISA WILLINGHAM MD on 11/04/2025 at 02:25 PM EST Sign off status: Pending * Provider: Camila Willingham MD Date: 0 06/02/2025 Generated for Saadia franklin/Marni/Syed on: 1 01/05/2025 02:25 PM EST
--- OUTSIDE RECORDS SUMMARY | 2025-06-09 03:00 | XMS_ITS ---
Author Organization [facility] Address [address] [place] [address] Care Team Providers Care Animal Husbandry Technician Name Role Phone HUMPHREY DELUNA Unavailable [phone] JAE WILLINGHAM Unavailable [phone] REASON FOR VISIT pt is here for nv - pt is here for sema 0.5mg she got injection and tolerated injection well Medications Medication SIG (Take, Route, Frequency, Duration) Notes Start Date End Date Status Topamax 50 MG Tablet 1 tablet Orally Once a day Active Montelukast Sodium 10 MG Tablet 1 tablet Orally Once a day A ctive Estradiol 0.05 MG/24HR Patch Twice Weekly 1 patch to skin Transdermal Two times a Week Active Ventolin HFA 108 (90 Base) MCG/ACT [...] a day; Duration: 30 days 05/22/2025 Active Encounters Encounter Location Date Provider Diagnosis [facility] [address] [place] [address] 06/09/2025 JAE WILLINGHAM Plan Of Treatment No Information Medications Administered Medication Instructions Date of Administration Dosage Notes Semaglutide 06/09/2025 0.5 mg lot# [id number] Progress Notes * GABRIEL LoreJacqueOB: 4 (50 yo F)Acc No.[id number]:06/09/2025 Patient: Charlotte Watson Provider: Camila Willingham MD :1975 A ge:49 Y S ex:Female Date:06/09/2025 Address:[address] [place], [place] [address], [facility] Subjective: * Chief Complaints: * P t is here for nv - pt is here for sema 0.5mg she got injection and tolerated injection well * Medications: T akingTopamax 50 MG [...] : 0.5 mg (Route: Subcutaneous) given by gwenchepe walkerte on right arm subcutaneous * Electronic signature of RISA WILLINGHAM MD on 11/04/2025 at 02:25 PM EST Sign off status: Pending * Provider: Camila Willingham MD Date: 0 06/09/2025 Generated for Saadia franklin/Marni/Syed on: 1 01/05/2025 02:25 PM EST
--- OUTSIDE RECORDS SUMMARY | 2025-06-16 03:00 | XMS_ITS ---
Author Organization [facility] [address] Address [address] [place] [address] Care Team Providers Care Roller Coaster Engineer Name Role Phone HUMPHREY DELUNA Unavailable [phone] JAE WILLINGHAM Unavailable [phone] REASON FOR VISIT pt presents for nurse [...] a day; Duration: 30 days 05/22/2025 Active Ventolin HFA 108 (90 Base) MCG/ACT [...] Active Encounters Encounter Location Date Provider Diagnosis [facility] [address] [place] [address] 06/16/2025 JAE WILLINGHAM Plan Of Treatment No Information Medications Administered Medication Instructions Date of Administration Dosage Notes Semaglutide 06/16/2025 .5 mg Progress Notes * Chet RIOSOB: 4 (50 yo F)Acc No.[id number]:06/16/2025 Patient: Charlotte Watson Provider: Camila Willingham MD :1975 A ge:49 Y S ex:Female Date:06/16/2025 Address:[address] [place], [place] [address], [place] Subjective: * Chief Complaints: * P t [...] * Provider: Camila Willingham MD Date: 0 06/16/2025 Generated for Saadia franklin/Marni/Syed on: 1 01/05/2025 02:24 PM EST
--- OUTSIDE RECORDS SUMMARY | 2025-06-23 03:15 | XMS_ITS ---
Author Organization [facility] Address [address] [place] [address] Care Team Providers Care Hatch Tender Name Role Phone HUMPHREY DELUNA Unavailable [phone] JAE WILLINGHAM Unavailable [phone] REASON FOR VISIT pt is here for nv for sema 0.5mg pt signed consent form and tolerated injection well Medications Medication SIG (Take, Route, Frequency, Duration) Notes Start Date End Date Status Estradiol 0.05 MG/24HR Patch Twice Weekly 1 patch to skin Transdermal Two times a Week Active Montelukast Sodium 10 MG Tablet 1 tablet Orally Once a day A ctive Topamax 50 MG Tablet 1 tablet Orally Once a day Active Contrave 8-90 MG Tablet Extended Release 12 Hour 2 tablets Orally twice daily; Duration: 30 days Active Ventolin HFA 108 (90 Base) MCG/ACT Aerosol Solution 1 puff as needed Inhalation every 4 hrs Active Encounters Encounter Location Date Provider Diagnosis [facility] [address] [place] [address] 06/23/2025 JAE WILLINGHAM Plan Of Treatment No Information Medications Administered Medication Instructions Date of Administration Dosage Notes Semaglutide 06/23/2025 0.5 mg lot# [id number] 0.5mg Progress Notes * RIOSLore BOOTHEraDOB: 4 (50 yo F)Acc No.[id number]:06/23/2025 Patient: Charlotte Watson Provider: Camila Willingham MD :1975 A ge:49 Y S ex:Female Date:06/23/2025 Address:[address] [place], [place] [id number] Subjective: * Chief Complaints: * P t is here for nv for sema 0.5mg pt signed consent form and tolerated injection well * Medications: T [...] 8-90 MG Tablet Extended Release 12 Hour 2 tablets Orally twice daily Medication List reviewed and reconciled with the patientTaking Topamax 50 MG Tablet 1 tablet Orally [...] 8-90 MG Tablet Extended Release 12 Hour 2 tablets Orally twice daily Medication List reviewed and reconciled with the patient Plan: * Therapeutic Injections: Semaglutide : 0.5 mg (Route: Subcutaneous) given by gwen parkinson on subcutaneus * Electronic signature of RISA WILLINGHAM MD on 11/04/2025 at 02:26 PM EST Sign off status: Pending * Provider: Camila Willingham MD Date: 0 06/23/2025 Generated for Saadia franklin/Marni/Syed on: 1 01/05/2025 02:26 PM EST
--- OUTSIDE RECORDS SUMMARY | 2025-06-28 03:30 | XMS_ITS ---
Author Organization [facility] Address [address] [place] [address] Care Team Providers Care Embroidery Finisher Name Role Phone HUMPHREY DELUNA Unavailable [phone] Encounters Encounter Location Date Provider Diagnosis [facility] [address] [place] [address] 06/28/2025 HUMPHREY DELUNA Plan Of Treatment No Information Progress Notes * RIOSLore BOOTHEJacqueOB: 4 (50 yo F)Acc No.[id number]:06/28/2025 Patient: Charlotte Watson Provider: Cory DELUNA PA-C :1975 A ge:49 Y S ex:Female Date:06/28/2025 Address:[address] [place], [place] [address] * Electronic signature of FELICIANO DELUNA PA-C, [id number] on 11/04/2025 at 02:26 PM EST Sign off status: Pending * Provider: Cory DELUNA PA-C Date: 0 06/28/2025 Generated for Saadia franklin/Marni/eTransmitting on: 1 01/05/2025 02:26 PM EST
--- OUTSIDE RECORDS SUMMARY | 2025-06-30 03:00 | XMS_ITS ---
Author Organization [facility] Address [address] [place] [address] Care Team Providers Care Barrel Painter Name Role Phone HUMPHREY DELUNA Unavailable [phone] JAE WILLINGHAM Unavailable [phone] REASON FOR VISIT Patient is here for [...] Orally twice daily; Duration: 30 days Active Encounters Encounter Location Date Provider Diagnosis [facility] [address] [place] [address] 06/30/2025 JAE WILLINGHAM Plan Of Treatment No Information Medications Administered Medication Instructions Date of Administration Dosage Notes Semaglutide 06/30/2025 0.5 mg Progress Notes * Lore RIOSraDOB: 4 (50 yo F)Acc No.[id number]:06/30/2025 Patient: Charlotte Watson Provider: Camila Willingham MD :1975 A ge:49 Y S ex:Female Date:06/30/2025 Address:[address] [place] [id number] Subjective: * Chief Complaints: * P atient [...] 12 Hour 2 tablets Orally twice daily Taking Topamax 50 MG Tablet 1 tablet [...] 12 Hour 2 tablets Orally twice daily Plan: * Therapeutic Injections: Semaglutide : 0.5 mg (Route: Subcutaneous) given by Tomer Turcios on right arm subcutaneous * Electronic signature of RISA WILLINGHAM MD on 11/04/2025 at 02:26 PM EST Sign off status: Pending * Provider: Camila Willingham MD Date: 0 06/30/2025 Generated for Saadia franklin/Marni/Syed on: 1 01/05/2025 02:26 PM EST
--- OUTSIDE RECORDS SUMMARY | 2025-11-01 10:35 | XMS_ITS | Encounter Summary ---
Author Organization [employer] Address [address] [place] [address] Care Team Providers Care Manager Scheduling Name Role Phone Ralph Ocampo MD Primary Care Provider [phone] Encounter Details Date Type Department Care Team ([facility] st Contact Info) Description 11/01/2025 10:35 AM EST Lab Draw Station [address] [address] Heat intolerance; Mixed hyperlipidemia Social History Tobacco Use Types Packs/Day Years [...] care for your loved ones. For example, childbirth educator or elderly care for an older adult? [...] Care Team (Late st Contact Info) Description 11/06/2025 8:00 AM EST Consult Plastic & Reconstructive Surgery - [place] [address] [place] [phone] Veronica Salazar PA [address] [place] [phone] 11/08/2025 1:00 PM EST Office Visit Urogynecology - [place] [address] [place] [address] Yuni Rodas MD [address] [facility] [address] [place] [address] 11/29/2025 1:00 PM EST Appointment [facility] [address] [place] [address] 12/05/2025 8:45 AM EST Office Visit Obstetrics and Gynecology - [place] [address] [place] [phone] Laurie Walls, [facility] [address] [place] [phone] documented as of this encounter Procedures Procedure Name Priority Date/Time Associated Diagnosis Comments THYROID STIMULATING HORMONE WITH REFLEX TO FREE T4 AND FREE T3 Routine 11/01/2025 10:37 AM EST Heat intolerance LIPID PANEL WITH REFLEX TO DIRECT LDL Routine 11/01/2025 10:37 AM EST Mixed hyperlipidemia HEMOGLOBIN A1C Routine 11/01/2025 10:37 AM EST Mixed hyperlipidemia COMPREHENSIVE METABOLIC PANEL Routine 11/01/2025 10:37 AM EST Mixed hyperlipidemia documented in this encounter Results * Hemoglobin A1c (11/01/2025 10:37 AM EST) Hemoglobin A1C 5.4 <6.5 % LAB CHEMISTRY METHOD 11/01/2025 1:48 PM EST [facility] Mean Bld Glu Estim. 108 mg/dL LAB CHEMISTRY METHOD 11/01/2025 1:48 PM EST [facility] Blood Venous blood specimen / Unknown Venipuncture / Unknown 11/01/2025 10:37 AM EST 11/01/2025 10:37 AM EST Ralph Ocampo MD LAB BLOOD ORDERABLES Final Resu lt [facility] [address] [place] [address], [place] [phone] * (ABNORMAL) Lipid panel with reflex to direct LDL (11/01/2025 10:37 AM EST) Cholesterol 201(H) 0 - 200 mg/dL 11/01/2025 2:43 PM EST [facility] Triglycerides 131 0 - 150 mg/dL 11/01/2025 2:43 PM EST [facility] HDL 62 >=40 mg/dL 11/01/2025 2:43 PM [facility] LDL Calculated 113(H) 0 - 100 mg/dL 11/01/2025 2:43 PM [facility] Comment:Estimated LDL is brenton culated using the Friedewald equation: Total cholesterol - HDL cholesterol - (Triglycerides/5) VLDL Cholesterol Brenton 26.2 mg/dL 11/01/2025 2:43 PM [facility] Non HDL Chol. (LDL+VLDL) 139 <145 mg/dL 11/01/2025 2:43 PM [facility] Chol/HDL Ratio 3.2 0.0 - 4.4 11/01/2025 2:43 PM [facility] Blood Venous blood specimen / Unknown Venipuncture / Unknown 11/01/2025 10:37 AM EST 11/01/2025 10:37 AM EST Ralph Ocampo MD LAB BLOOD ORDERABLES Final Resu lt [facility] [address] [place] [address], [place] [phone] * Comprehensive metabolic panel (11/01/2025 10:37 AM EST) Sodium 138 133 - 145 mmol/L 11/01/2025 2:43 PM [facility] Potassium 4.2 3.5 - 5.5 mmol/L 11/01/2025 2:43 PM [facility] Chloride 101 96 - 110 mmol/L 11/01/2025 2:43 PM [facility] CO2 29 21 - 32 mmol/L 11/01/2025 2:43 PM [facility] Anion Gap 8 3 - 11 11/01/2025 2:43 PM [facility] Glucose 76 70 - 100 mg/dL 11/01/2025 2:43 PM [facility] BUN 10 5 - 25 mg/dL 11/01/2025 2:43 PM [facility] Creatinine 0.58 0.50 - 1.10 mg/dL 11/01/2025 2:43 PM [facility] eGFR 110 >=60 mL/min/1. 73m2 11/01/2025 2:43 PM [facility] Comment:Calculation based on the Chronic Kidney Disease Epidemiology Collaboration (CKD-EPI) equation refit without adjustment for race. BUN/Creatinine Ratio 17.2 11/01/2025 2:43 PM [facility] Calcium 8.9 8.5 - 10.5 mg/dL 11/01/2025 2:43 PM [facility] AST (SGOT) 29 10 - 42 unit/L 11/01/2025 2:43 PM [facility] ALT (SGPT) 30 10 - 60 unit/L 11/01/2025 2:43 PM [facility] Alkaline Phosphatase 55 42 - 121 unit/L 11/01/2025 2:43 PM [facility] Total Protein 7.1 6.0 - 8.0 g/dL 11/01/2025 2:43 PM EST [facility] Albumin 4.0 3.2 - 5.0 g/dL 11/01/2025 2:43 PM EST [facility] Total Bilirubin 0.3 0.0 - 1.4 mg/dL 11/01/2025 2:43 PM [facility] Blood Venous blood specimen / Unknown Venipuncture / Unknown 11/01/2025 10:37 AM EST 11/01/2025 10:37 AM EST Ralph Ocampo MD LAB BLOOD ORDERABLES Final Resu lt Performing Organization Address City/[facility]/ZIP Co de Phone Number [facility] [address] [place] [address], [place] [phone] * Thyroid stimulating hormone with reflex to free t4 and free t3 (11/01/2025 10:37 AM EST) TSH 0.87 0.40 - 4.00 mcIU/mL 11/01/2025 2:43 PM EST [facility] Blood Venous blood specimen / Unknown Venipuncture / Unknown 11/01/2025 10:37 AM EST 11/01/2025 10:37 AM EST us Ralph Ocampo MD LAB BLOOD ORDERABLES Final Resu lt Performing Organization Address City/[facility]/ZIP Co de Phone Number [facility] [address] [place] [address], [place] [phone] documented in this encounter Visit Diagnoses Diagnosis Heat intolerance Unspecified effects of heat and light Mixed hyperlipidemia documented in this encounter Additional Health Concerns Assessment Noted Time PHQ-9 Depression Total Score: 0 08/09/20 25 9:44 AM EDT documented as of this encounter Care Teams Manager Scheduling Relationship Specialty Start Date End Date Ralph Ocampo MD [address] [place] [address] PCP - General Internal Medicine 09/28/24 documented as of this encounter
--- OUTSIDE RECORDS SUMMARY | 2025-11-02 10:00 | XMS_ITS | Encounter Summary ---
Author Organization [facility] Address [address] [place] [address] Care Team Providers Care Roll Reclaimer Name Role Phone Ralph Ocampo MD Primary Care Provider [phone] Reason for Referral * Consultation (Routine) - Authorized Specialty Diagnoses / Procedures Referred By Contact Referred To Contact Plastic Surgery Diagnoses Chronic midline thoracic back pain Large breasts Ralph Ocampo MD [address] [place] [address] Phone: tel: fax: Plastic & Reconstructive Surgery [facility] [address] [address] Phone: tel: fax: Referral ID Status Reason Start Date Expiration Date Visits Requested Visits Authorized [id number] Authorized Specialty Services Required 11/02/2026 1 1 * Imaging (Routine) - Authorized Specialty Diagnoses / Procedures Referred By Contac t Referred To Contact Radiology Diagnoses Breast tenderness in female Procedures MG Mammo Digital Diagnostic w Jose De Jesus bilat Ralph Ocampo MD [address] [place] [address] Phone: tel: fax: [facility] [address] [place] [address] Phone: tel: Referral ID Status Reason Start Date Expiration Date V isits Requested Visits Authorized [id number] Authorized 11/02/2025 11/02/2026 1 1 Reason for Visit * Reason Comments Hot Flashes Encounter Details Date Type Department Care Team (Gaby st Contact Info) Description 11/02/2025 10:00 AM EST Office Visit Internal Medicine - [facility] [address] [place] [address] Ralph Ocampo MD [address] [place] [address] Hot flash, menopausal (Primary Dx); Breast tenderness in female; Chronic midline thoracic back pain; Large breasts; Shoulder blade pain; Intercostal pain Social History Tobacco Use Types Packs/Day Years [...] care for your loved ones. For example, special needs child caregiver or elderly care for an older adult? [...] on file documented as of this encounter Last Filed Vital Signs Vital Sign Reading Time Taken Comments Blood Pressure 126/87 11/02/2025 9:32 AM EST Pulse 77 11/02/2025 9:32 AM EST Temperature - - Respiratory Rate - - Oxygen Saturation - - Inhaled Oxygen Concentration - - Weight 69.4 kg (153 lb) 11/02/2025 9:32 AM EST Height 157.5 cm (5' 2 ) 11/02/2025 9:32 AM EST Body Mass Index 27.98 11/02/2025 9:32 AM EST documented in this encounter Progress Notes * Sarah Engel MA - 11/02/2025 10:00 AM ESTAddended by: SARAH ENGEL on: 11/02/2025 10:09 AM Modules accepted: Orders * Ralph Ocampo MD - 11/02/2025 10:00 AM EST CHIEF COMPLAINT: Hot Flashes IDENTIFIER: [place] Rios is a 50 y.o. old female who comes alone. I have obtained verbal consent from [place] Rios prior to the recording. I have advised [place] Rios that she may refuse the recording and require the recording to be turned off at any time during this encounter. History of Present Illness The patient presents with hot flashes, breast tenderness, and shoulder blade pain. Hot flashes have intensified over the past 3-4 days, disrupting sleep. Severe sweating despite using a fan and no blankets. Upcoming urogynecologist appointment for suspected bladder and rectal prolapse. Hysterectomy due to PCOS and endometriosis, including ovary removal. No vaginal bleeding. Estrogen therapy ongoing since hysterectomy (~2 years). Breast tenderness in the front for the past 3-4 days. Last mammogram scheduled in November 2024 was normal with high breast density. No lumps detected, left breast larger than right. Breasts feel heavy and under pressure. Considering breast reduction surgery for back pain. Bra size 38D. Bloating after meals, chest pounding when sitting down to work or cook. Sternal pain (squeezing sensation) in the evenings for the past few days. No recent viral infections.Weight loss treatment improved symptoms but weight regained after discontinuing injections. Shoulder blade pain for over a year, localized around bra area, more pronounced in evenings. No braworn at home, pain continues during the day with supportive bra. Sleep: Disrupted due to hot flashes. PAST SURGICAL HISTORY: Hysterectomy due to PCOS and endometriosis, including ovary removal. ROS: GENERAL: No malaise, significant weight loss or fever HEENT: No changes in hearing or vision, nose bleeds or other nasal problems RESPIRATORY: No cough, wheezing or shortness of breath CARDIOVASCULAR: No chest pain, leg swelling or palpitations GI: No abdominal discomfort, blood in stools or black stools NECK: No lumps, goiter, pain or significant neck swelling : No dysuria, frequency or incontinence MUSCULOSKELETAL: Reports bilateral shoulder blade pain. Also reports breast pain tenderness SKIN: No lesions, rash or itching NEURO: No persistent headache, syncope, seizures, weakness or numbness PAST MEDICAL HISTORY: Patient Active Problem List Diagnosis Date Noted Ganglion cyst of dorsum of right wrist 11/05/2023 Dizziness 10/16/2022 Palpitations 10/16/2022 Swelling 10/16/2022 Dyspnea 10/13/2022 Asthma 05/05/2022 IBS (irritable bowel syndrome) 05/05/2022 Insomnia 05/05/2022 Migraine 05/05/2022 ACTIVE MEDICATIONS: Medications Taking[1] ALLERGIES: Animal dander; Cockroach; Dog dander; Grass pollen; Grass pollen-red top, standard; House dust; andTree and shrub pollen PHYSICAL EXAM: Visit Vitals BP 126/87 Pulse 77 Ht 1.575 m (62 ) Wt 69.4 kg (153 lb) BMI 27.98 kg/m?? OB Status Hysterectomy Smoking Status Never BSA 1.71 m?? APPEARNCE: well appearing, awake, alert, in no acute distress EYES: PERRL, conjunctiva and sclera normal NOSE/SINUS: negative MOUTH/THROAT: no erythema or exudates NECK: Supple without any adenopathy HEART: regular rate, regular rhythm and no murmur RESPIRATORY: clear lungs bilaterally EXTREMITIES: No edema and Normal pulses bilaterally. NEURO: Awake, alert and oriented x 3, Normal gait and No involuntary motions. SKIN: No rashes or lesions. LABS: Lab Results Component Value Date NA 138 11/01/2025 K 4.2 11/01/2025 CL 101 11/01/2025 CO2 29 11/01/2025 GLUCOSE 76 11/01/2025 BUN 10 11/01/2025 CREATININE 0.58 11/01/2025 CALCIUM 8.9 11/01/2025 PROT 7.1 11/01/2025 ALBUMIN 4.0 11/01/2025 BILITOT 0.3 11/01/2025 AST 29 11/01/2025 ALT 30 11/01/2025 MG 2.5 07/26/2025 ALKPHOS 55 11/01/2025 EGFR 110 11/01/2025 Lab Results Component Value Date TSH 0.87 11/01/2025 Lab Results Component Value Date HGBA1C 5.4 11/01/2025 IMPRESSION: 1. Hot flash, menopausal 2. Breast tenderness in female MG Mammo Digital Diagnostic w Jose De Jesus bilat 3. Chronic midline thoracic back pain Ambulatory referral to Plastic Surgery 4. Large breasts Ambulatory referral to Plastic Surgery 5. Shoulder blade pain 6. Intercostal pain PLAN: Assessment & Plan 1. Hot flashes: - Likely due to hormonal changes post-hysterectomy and estradiol patch. - Consult route specialist about adjusting dosage or transitioning to nonhormonal regimen. [employer] and states she is okay and looks good- If mammogram normal and symptoms persist, consider gabapentin or venlafaxine. 2. Breast tenderness: - Likely related to estradiol patch. - Order diagnostic mammogram to rule out malignancy. - Discuss discontinuing estradiol patch and exploring non-hormonal medications with route specialist. 3. Shoulder blade pain: - Possibly associated with large breasts. - Refer to plastic surgeon for potential breast reduction surgery. 4. Chest pain: - Possibly related to enlarged breasts and estradiol patch. - EKG today was normal. ADDITIONAL ORDERS: MG MAMMO DIGITAL DIAGNOSTIC W JOSE DE JESUS BILAT AMB REFERRAL TO PLASTIC SURGERY Today's documentation was made using voice recognition software.This note may contain grammatical errors secondary to this software. MD Ralph Shankar MD on 11/02/2025 at 10:07 AM EST [1] Outpatient Medications Marked as Taking for the 11/02/25 encounter (Office Visit) with Ralph Ocampo MD Medication Sig Dispense Refill albuterol HFA (Ventolin HFA) 90 mcg/actuation inhaler Inhale 2 puffs by mouth every 6 (six) hours if needed for wheezing. 3 each 3 cyclobenzaprine (FLEXERIL) 10 mg tablet TAKE 0.5-1 TABS BY MOUTH 2 TIMES A DAY IF NEEDED FOR MUSCLESPASMS. 30 tablet 0 EPINEPHrine (EpiPen 2-Reuben) 0.3 mg/0.3 mL injection Inject 0.3 mL (0.3 mg total) into the thigh if needed for anaphylaxis. 1 each 1 estradioL (VIVELLE-DOT) 0.1 mg/[address] 1 patch on the skin 2 (two) times a week. 24 patch 2 ibuprofen (ADVIL,MOTRIN) 600 mg tablet Take 1 tablet (600 mg total) by mouth every 6 (six) hours ifneeded for moderate pain. 60 tablet 5 montelukast (SINGULAIR) 10 mg tablet Take 1 tablet (10 mg total) by mouth at bedtime. 90 each 1 plecanatide (Trulance) 3 mg tablet Take 1 tablet (3 mg total) by mouth 1 (one) time each day. 90 tablet 1 SUMAtriptan (IMITREX) 25 mg tablet Take 1 tablet (25 mg total) by mouth 1 (one) time if needed for migraine. May repeat dose once in 2 hours if no relief. Do not exceed 2 doses in 24 hours. 9 tablet 3 topiramate (TOPAMAX) 50 mg tablet Take 1 tablet (50 mg total) by mouth 2 (two) times a day. 180 tablet 1 documented in this encounter Plan of Treatment Upcoming Encounters Date Type Department Care Team (Late st Contact Info) Description 11/06/2025 8:00 AM EST Consult Plastic & Reconstructive Surgery [facility] [address] [facility] [address] [place] [phone] Veronica Salazar PA [address] [place] [phone] 11/08/2025 1:00 PM EST Office Visit Urogynecology [address] [address] Yuni Rodas MD [address] [place] [address] [address] [place] [address] 11/29/2025 1:00 PM EST Appointment [facility] at [facility] [address] [place] [phone] 12/05/2025 8:45 AM EST Office Visit Obstetrics and Gynecology - [facility] [address] [place] [phone] Laurie Walls CNM [address] [place] [phone] Pending Results Name Type Priority Associated Diagnoses Date /Time ECG 12 lead ECG Routine Hot flash, menopausal Intercostal pain 11/02/2025 10:09 AM EST Scheduled Orders Name Type Priority Associated Diagnoses Orde r Schedule MG Mammo Digital Diagnostic w Jose De Jesus bilat Imaging Routine Breast tenderness in female Expected: 11/02/2025, Expires: 11/02/2026 Scheduled Referrals Name Type Priority Associated Diagnoses Order Schedule Ambulatory referral to Plastic Surgery Outpatient Referral Routine Chronic midline thoracic back pain Large breasts 1 Occurrences starting 11/02/2025 until 11/02/2026 documented as of this encounter Visit Diagnoses Diagnosis Hot flash, menopausal- Primary Symptomatic menopausal or female climacteric states Breast tenderness in female Chronic midline thoracic back pain Large breasts Hypertrophy of breast Shoulder blade pain Pain in joint, shoulder region Intercostal pain documented in this encounter Additional Health Concerns Assessment Noted Time PHQ-9 Depression Total Score: 0 08/09/20 25 9:44 AM EDT documented as of this encounter Care Teams Roll Reclaimer Relationship Specialty Start Date End Date Ralph Ocampo MD [address] [place] [address] PCP - General Internal Medicine 09/28/24 documented as of this encounter
--- NOTE | ~2025-11-04 | MR_ITS ---
CLINICAL HISTORY: R42 - Dizziness and giddiness MR of the brain without contrast Comparison: None Findings: No acute infarction, hemorrhage, mass-effect or herniation. No hydrocephalus. Signal intensity is within normal limits for patient's age. No extra-axial fluid collection or mass. Unremarkable sella. Intact flow voids. Normal orbits. Predominantly clear paranasal sinuses and mastoid air cells. Unremarkable osseous structures. Impression: Normal brain MR. This document has been electronically signed by: Rosalba Nunez MD on 11/06/2025 21:53:32
--- OUTSIDE RECORDS SUMMARY | 2025-11-04 14:24 | XMS_ITS | Data Portability ---
Author Organization [facility], [id number] Address [address] [facility] [address] [place] [address] Care Team Providers Care Blood Bank Technologist Name Role Phone SHANA NAJERA Primary Care Provider SHANA NAJERA Referring Provider [phone] Assessment Encounter Date Assessment Date Assessment LastModified [...] in the community and examining the patient. [email or web address] Not available 09/23/2024 10:01:02 Plan of Treatment Reminders Order Date Submit Date Provider Last Modified By Organization Details Last Modified Time Details Appointments None recorded. Lab None recorded. Referral None recorded. Procedures None recorded. Surgeries None recorded. Imaging None recorded. Medication Orders methocarba mol 500 mg tablet 2023 024 [id number], [address] [place], [address], 09:58:10 Patient TargetsNo targets recorded. Patient InstructionsNo instructions recorded. Reason for Referral None Reported. Results Created Date Observation Date Name Description Value Unit Range Abnormal Flag Note LastModifiedBy Organization Detail LastModifiedTime 09/26/20 24 09/26/2024 EMG 2 limbs No observ ation record ed. [email or web address] [facility] ([facility] Central Scheduling) Any [facility], [place], [address], 10/04/2024 11:53:26 09/28/20 24 09/26/2024 lower extre mity elect romyo gram (PROC ) No observ ation record ed. [email or web address] Shana Lackey MD [address] [place] [address], [address], 10/28/2024 07:56:37 10/07/20 MRI, lumba r spine , w/o contr ast No observ ation record ed. [email or web address] Not Available 2023 08:00:29 10/27/20 24 06/22/2024 XR, lumbo sacra l spine No observ ation record ed. [email or web address] Not Available 2023 08:53:16 10/28/20 24 10/28/2024 xr fluor o up to 1 hour See Note [facility] , a [facility] of [facility] Name: CHARLOTTE Jacques Date of : 1974 Reason for Exam: pain Exam Date: 2023 [id number] EST Report Status : Final Orderi ng [...] Edit Transc ribed Date: 2023 11:07 ET [email or web address] [address], [address], 10/28/2024 13:04:28 Result Notes None recorded. Problems Name Problem SNOMED Code Status Onset Date Resolution Date Notes Provider Name and Address Organization Details Recorded Time Asthma 516237121 Active 2023 Lianne Stock null, [facility] 4 11:32:27 Dizziness 001302367 Active 2023 Lianne Stock null, [facility] 4 11:32:36 Dyspnea 539238191 Active 2023 Lianne Stock null, [facility] 4 11:32:45 Ganglion cyst of right dorsal wrist 333470106 Active 2023 Lianne Stock null, [facility] 4 11:33:09 Irritable bowel syndrome 23172605 Active 2023 Lianne Stock null, [facility] 4 11:33:20 Insomnia 081433451 Active 2023 Lianne Stock null, [facility] 4 11:33:31 Migraine 64967514 Active 2023 Lianne Stock null, [facility] 4 11:33:40 Palpitations 42916458 Active 2023 Lianne Stock null, [facility] 4 11:33:48 Swelling 97186270 Active 2023 Lianne Stock null, [facility] 4 11:33:55 Serum vitamin B12 below reference range 464971291 Active 2023 Lianne Stock null, [facility] 4 12:24:58 Serum iron below reference range 724599826 Active 2023 Lianne Stock null, [facility] 4 12:31:50 Problem Notes None recorded. Procedures Surgical History Date Name Laterality Status Provider Name and Address Organization Details Recorded Time hysterectomy completed Lianne Stock [facility] 09/22/2024 11:35:27 Pt had hyst completed Not Available [facility] 01/24/2025 03:44:56 Imaging Results None recorded. Procedure Notes None recorded. Medical Equipment None Reported. Allergies Allergen ID Allergen Name Allergen Category Reaction Reaction Severity Criticality Documentation Date Start Date Code Code System Note Provider Name and Address Organization Details Recorded Time 37231 Hayfever medicatio n Not available Not available Not available 12/27/20242023 Not Available [facility] 5 15:48:44 671 animal dander environme nt Not available Not available Not available 09/22/2024 [facility] 10:13:42 683 grass pollen environme nt,medica tion Not available Not available Not available 09/22/2024 [facility] 4 11:31:33 Medications Name Sig Start [...] History Condition Response Allergies/Hayfever Y Migraines Y Irritable Bowel Syndrome Y Asthma Y Gynecological HistoryNo gynecological history recorded. Obstetrics History GPAL:G 0 P 0 0 0 0 Past Encounters Encounter ID Performer Location Encounter Start Date Encounter Closed Date Diagnosis/Indication Diagnosis SNOMED-CT Code Diagnosis ICD10 Code Diagnosis IMO Codes Diagnosis Note [id number] Shana Lackey MD [id number] [address] [place] [address] 09/23/2024 09:05:08 09/23/2024 10:14:04 Lumbar radiculopathy 671626185 M54.16 Health Concerns Section Related Observation LastModified by Organization Detai ls LastModified Time None Recorded Concern Status LastModified by Organization Details LastModified Time None Recorded Advance Directives Directive None Recorded Payers Insurance Date Sequence Insurance Name Policy Number Policy Lopez Covered Member ID Lopez Member ID Guarantor Name 10/25/2024 1 [id number]/ [place]VANTAGE - PPO) [id number] [place] Rios [id number] [place] Rios Notes Date Note Type [...] multilevel DJD. See report. Shana Lackey MD [facility], [place] - [facility] 09/23/2024 10:01:33 OBGyn Episode No OBEpisode recorded.
--- OUTSIDE RECORDS SUMMARY | 2025-11-04 14:24 | XMS_ITS | Data Portability ---
Author Organization [facility] Idalia Singh [place] Address [address] [place] [address] Care Team Providers Care Community Educator Name Role Phone XIMENA OLIVAS Referring Provider [...] By Organization Details Last Modified Time 11/04/2023 38386 You have been provided with a cortisone [...] Recorded Time Ganglion cyst of left hand [id number] Active 2022 Swati martinez MD [address] [facility],[address], [place], [address], [place] [facility] 13:19:19 Problem Notes None recorded. Procedures Surgical History Date Name Laterality Status Provider Name and Address Organization Details Recorded Time 11/04/20 23 Ganglion Cyst Asp & Inj completed Swati Viveros MD [address] [facility] [address], [place], [address], [place] [facility] 11/04/2023 13:17:56 hysterectomy completed [facility] 11/04/2023 11:22:17 Removal of ovarian cyst(s) completed [facility], P 11/04/2023 11:22:26 Imaging Results None recorded. Procedure Notes None recorded. Medical Equipment None Reported. Allergies Allergen ID Allergen Name Allergen Category Reaction Reaction Severity Criticality Documentation Date Start Date Code Code System Note Provider Name and Address Organization Details Recorded Time 25764 POLLEN EXTRACTS environme nt,medica tion Not available Not available Not available 11/04/2023 40636 6 [facility], [facility] 11:19:27 52926 house dust allergeni c extract environme nt,medica tion Not available Not available Not available 11/04/2023 15045 9 RxNorm [facility], [facility], P 3 11:19:39 14867 tree and shrub pollen environme nt,medica tion Not available Not available Not available 11/04/2023 Kylee Pioche [facility], [facility] 3 11:19:54 44699 Canis lupus familiari s extract environme nt Not available Not available Not available 11/04/2023 74640 4 RxNorm [facility], [facility] 3 11:20:01 48791 cockroach environme nt Not available Not available Not available 11/04/2023 Kylee Pioche [facility], [facility] 11:20:10 Medications Name Sig Start [...] Updated DateTime 11/04/2023 157.48 cm 23.8 kg/m2 35941.[address] [facility], P 11/04/2023 11:20:26 Social History None recorded. [...] ICD10 Code Diagnosis IMO Codes Diagnosis Note 54793 MD KULDIP Salazar [address] [place] [address] 11/04/2023 10:45:04 11/04/2023 13:05:13 Ganglion cyst of left hand 3069983514 15855 M67.442 Health Concerns Section Related Observation LastModified by Organization Detai ls LastModified Time None Recorded Concern Status LastModified by Organization Details LastModified Time None Recorded Advance Directives Directive None Recorded Payers Insurance Date Sequence Insurance Name Policy Number Policy Lopez Covered Member ID Lopez Member ID Guarantor Name 12/24/2023 1 [employer]ANS[employer]ME[employer] (PPO) [id number] Charlotte Rios [id number] Charlotte Rios Notes Date Note Type Note Provider Name and Address Organization Details Recorded Time 11/04/2023 text/html ROS as noted in the HPI This is a 48-year-old xjwyz-lcau-yfagrf nt female who is presenting with a [...] follow-up with hand doctor. Swati Viveros MD [address] [place] [address], [address], [place] [facility], [facility] 11/04/2023 13:24:37 OBGyn Episode No OBEpisode recorded.
--- OUTSIDE RECORDS SUMMARY | 2025-11-04 14:25 | XMS_ITS | Clinical Summary ---
Author Organization [facility] Address [address] [address] Phone Care Team Providers Care Web Analyst Name Role Phone Ralph Ocampo Primary Care Provider [phone] Allergies Active Allergy Reactions Criticality Noted Date [...] seen on exam. She is taking an mvsx-nea-gkdwrzs diuretic I asked her to stop it [...] Sigmoidoscopy 2023 Influenza Vaccine (#1) 2025 Insurance [facility] Care Teams Web Analyst Relationship Specialty Start Date End Date Ralph Ocampo [address] [place] [address] PCP - General 03/09/25
--- OUTSIDE RECORDS SUMMARY | 2025-11-04 14:25 | XMS_ITS | Encounter Summary ---
Author Organization [employer] Address [address] [place] [address] Care Team Providers Care Wildlife Control Operator Name Role Phone Ralph Ocampo MD Primary Care Provider [phone] Encounter Details Date Type Department Care Team ([facility] Contact Info) Description 11/01/2025 Results Follow-Up [facility] [address] [place] [address] Ralph Ocampo MD [address] [place] [address] Social History Tobacco Use Types Packs/Day Years [...] for your loved ones. For example, child welfare assistant or elderly care for an older adult? [...] on file documented as of this encounter Progress Notes * Kirsten Keyes LPN - 11/01/2025 3:30 PM EST See braeden child documented in this encounter Plan of Treatment Upcoming Encounters Date Type Department Care Team (Late st Contact Info) Description 11/06/2025 8:00 AM EST Consult Plastic & Reconstructive Surgery - [place] [address] [place] [address] Veronica Salazar PA [address] [place] [address] 11/08/2025 1:00 PM EST Office Visit [facility] [address] [place] [address] Yuni Rodas MD [address] [facility] [address] [place] [address] 11/29/2025 1:00 PM EST [facility]ointment [facility] [address] [phone] 12/05/2025 8:45 AM EST Office Visit Obstetrics and Gynecology - [facility] [address] [place] [address] Laurie Walls CNM [address] [place] [address] documented as of this encounter Visit Diagnoses Not on filedocumented in this encounter Additional Health Concerns Assessment Noted Time PHQ-9 Depression Total Score: 0 08/09/20 9:44 AM EDT documented as of this encounter Care Teams Wildlife Control Operator Relationship Specialty Start Date End Date Ralph Ocampo MD [address] [place] [address] PCP - General Internal Medicine 09/28/24 documented as of this encounter
--- OUTSIDE RECORDS SUMMARY | 2025-11-04 14:25 | XMS_ITS | Patient Health Record ---
Author Organization [facility] [address] [address] Address [address] [place] [address] Care Team Providers Care Landcare Facilitator Name Role Phone HUMPHREY DELUNA Unavailable [phone] WILLINGHAMCHRIS DE OLIVEIRA Unavailable [phone] PAN GARCES Unavailable [phone] Allergies No Known Allergies Reason For Referral No Information Medications Medication SIG (Take, Route, Frequency, Duration) Notes Start Date End Date Status Topamax 50 MG Tablet 1 tablet Orally Once a day Active Montelukast Sodium 10 MG Tablet 1 tablet Orally Once a day A ctive Contrave 8-90 MG Tablet Extended Release 12 Hour Take two tablets by mouth twice a day Active Estradiol 0.05 MG/24HR Patch Twice Weekly 1 patch to skin Transdermal Two times a Week Active Ventolin HFA 108 (90 Base) MCG/ACT Aerosol Solution 1 puff as needed Inhalation every 4 hrs Active Social History Tobacco Use: Social History Observation Description Date Details (start date - stop date) Never Smoker NA - NA Social History Tobacco Use: Social Info Question Answer Notes Tobacco Use/Smoking Are you a nonsmoker Problems Problem Type SNOMED Code ICD Code Onset Dates Problem Status W/U Status Risk Notes Problem Mild intermittent asthma (998559454) Mild intermittent asthma without complication (J45.20) Active confirmed Problem Body mass index 30+ - obesity (704509590) BMI 30.0-30.9,adult (Z68.30) Active confirmed Problem Overweight (826297013) Overweight (BMI 25.0-29.9) (E66.3) Active confirmed Problem Obesity (422811814) Obesity due to excess calories without serious comorbidity, unspecified classification (E66.09) Active confirmed Problem Exercise-induced asthma (14995703) Asthma, exercise induced (J45.990) Active confirmed Vital Signs Heart Rate 74 /min 05/22/2025 Oximetry 94 % 05/22/2025 Blood pressure diastolic 82 mm Hg 05/22/2025 Height 61 in 05/22/2025 Blood pressure systolic 132 mm Hg 05/22/2025 Weight 136.1 lbs 05/22/2025 BMI 25.71 kg/m2 05/22/2025 Encounters Encounter Location Date Provider Diagnosis [facility] [address] [place] [address] 02/18/2025 TALAL [place] [facility] [address] [place] [address] 02/23/2025 PAN GARCES [facility] [address] [place] [address] 03/03/2025 T[place]AL [place] [facility] [address] [place] [address] 03/11/2025 T[place]AL [place] [facility] [address] [place] [address] 03/24/2025 T[place]AL [place] [facility] [address] [place] [address] 03/31/2025 TALAL [place] [facility] [address] [place] [address] 04/07/2025 T[place]AL [place] [facility] [address] [place] [address] 04/14/2025 T[place]AL [place] [facility] [address] [place] [address] 04/21/2025 T[place] [facility] [address] [place] [address] 04/28/2025 [place] [place] [facility] [address] [facility] [address] [address] 05/05/2025 T[place] [facility] [address] [place] [address] 05/12/2025 [place] [facility] [address] [place] [address] 05/18/2025 T[place] [facility] [address] [place] [address] 05/26/2025 T[place] [facility] [address] [place], [place] 06/02/2025 [place] [facility] [address] [facility] 06/09/2025 [place] [facility] [address] [facility] 06/16/2025 [place] [facility] [address] [facility] 06/23/2025 [place] [facility] [address] [facility] 06/30/2025 [place] [facility] [address] [facility] 11/14/2024 HUMPHREY MIKIE Asthma, exercise ind uced J45.990 and BMI 23.0-23.9, adult Z68.[address] [facility] 02/10/2025 HUMPHREY MIKIE Overweight (BMI 25.0-29.9) E66.3 ; BMI 26.0-26.9,adult Z68.26 and Asthma, exercise induced J45.[address] [place], [place] 03/16/2025 HUMPHREY MIKIE Overweight (BMI 25.0-29.9) E66.3 ; BMI 26.0-26.9,adult Z68.26 ; Asthma, exercise induced J45.990 and Nutritional counseling Z71.[address] [place], [place] 05/22/2025 HUMPHREY MIKIE BMI 25.0-25.9,adult Z68.25 ; Overweight (BMI 25.0-29.9) E66.3 ; Asthma, exercise induced J45.990 ; Nutritional counseling Z71.3 and Encounter for examination of blood pressure without abnormal findings Z01.30 [facility] [address] [place] [address] 01/04/2025 HUMPHREY MIKIE Assessments Encounter Date Diagnosis (ICD Code) Assessment Notes Treatment Notes Treatment Clinical Notes Section Notes 11/14/2024 BMI 23.0-23.9, adult (ICD-10 - Z68.23) [...] Dictation was accomplished with the use of Offees voice recognition software, prone to medical misidentifications [...] Dictation was accomplished with the use of Offees voice recognition software, prone to medical misidentifications [...] Dictation was accomplished with the use of Offees voice recognition software, prone to medical misidentifications [...] Dictation was accomplished with the use of Offees voice recognition software, prone to medical misidentifications [...] Dictation was accomplished with the use of Offees voice recognition software, prone to medical misidentifications [...] Dictation was accomplished with the use of Offees voice recognition software, prone to medical misidentifications [...] Discussed tapering up process. Will send to [email or web address] today. Plan to follow-up in 6 [...] Dictation was accomplished with the use of Offees voice recognition software, prone to medical misidentifications [...] Discussed tapering up process. Will send to [email or web address] today. Plan to follow-up in 6 [...] Dictation was accomplished with the use of Offees voice recognition software, prone to medical misidentifications [...] Discussed tapering up process. Will send to [email or web address] pharmacy today. Plan to follow-up in 6 [...] Dictation was accomplished with the use of Offees voice recognition software, prone to medical misidentifications [...] Dictation was accomplished with the use of Offees voice recognition software, prone to medical misidentifications [...] Dictation was accomplished with the use of Offees voice recognition software, prone to medical misidentifications [...] Dictation was accomplished with the use of Offees voice recognition software, prone to medical misidentifications [...] Discussed tapering up process. Will send to [email or web address] pharmacy today. Plan to follow-up in 6 [...] Dictation was accomplished with the use of Offees voice recognition software, prone to medical misidentifications [...] Discussed tapering up process. Will send to [email or web address] pharmacy today. Plan to follow-up in 6 [...] Dictation was accomplished with the use of Offees voice recognition software, prone to medical misidentifications [...] Insured Coverage Start Date Coverage End Date [facility] [address] [place] [address] [id number] Charlotte Rios Self - patient is the insured 2 Medications Administered Medication Instructions Date of Administration Dosage Notes Semaglutide 05/27/2023 Semaglutide 06/03/2023 lot # [id number] 0.25mg Semaglutide 06/11/2023 0.25 mg L tricep SQ Semaglutide 06/17/2023 sema 0.25mg Semaglutide 06/23/2023 0.5 mg LRQ SQ Semaglutide 07/01/2023 sema 0.5mg Semaglutide 07/09/2023 0.5 mg LLQ SQ Semaglutide 07/15/2023 0.5 mg LLQ SQ Semaglutide 07/22/2023 sema 0.5mg Semaglutide 07/29/2023 lot#[id number] 0.5mg Semaglutide 08/05/2023 sema 0.5mg Semaglutide 08/17/2023 lot# [id number] 0.5mg Semaglutide 08/31/2023 0.5 sema 0.5mg Semaglutide [...] .5 mg Semaglutide 06/09/2025 0.5 mg lot# [id number] Semaglutide 06/16/2025 .5 mg Semaglutide 06/23/2025 0.5 mg lot# [id number] 0.5mg Semaglutide 06/30/2025 0.5 mg Medical (General) History Medical History History ICD Code asthma angina weight loss/gain hemorrhoids headache anxiety depression seasonal allergies Surgical History Surgery Date(Month/Year) hysterectomy
--- OUTSIDE RECORDS SUMMARY | 2025-11-04 14:26 | XMS_ITS | Encounter Summary ---
Author Organization [employer] Address [address] [place] [address] Care Team Providers Care Second Grade Teacher Name Role Phone Ralph Ocampo MD Primary Care Provider [phone] Encounter Details Date Type Department Care Team ([facility] st Contact Info) Description 08/31/2025 Results Follow-Up Internal Medicine - [address] [place] [phone] Gail Payton [place] Social History Tobacco Use [...] for your loved ones. For example, child care associate teacher or elderly care for an older adult? [...] EST Consult Plastic & Reconstructive Surgery - [place] [address] [place] [address] Veronica Salazar PA [facility] [place] [address] 11/08/2025 1:00 PM EST Office Visit Urogynecology - [place] [address] [place] [address] Yuni Rodas MD [address] [place] [address] [address] [place] [address] 11/29/2025 1:00 PM EST Appointment [facility] at [address] [phone] 12/05/2025 8:45 AM EST Office Visit Ob[facility] - [facility] [address] [place] [address] Laurie Walls, [address] [address] documented as of this encounter Visit Diagnoses Not on filedocumented in this encounter Additional Health Concerns Assessment Noted Time PHQ-9 Depression Total Score: 0 08/09/20 25 9:44 AM EDT documented as of this encounter Care Teams Second Grade Teacher Relationship Specialty Start Date End Date Ralph Ocampo MD [address] [place] [address] PCP - General Internal Medicine 09/28/24 documented as of this encounter
--- OUTSIDE RECORDS SUMMARY | 2025-11-04 14:26 | XMS_ITS | Clinical Summary ---
Author Organization [facility] Prior to 04/15/25 Address [address] [place] [address] Care Team Providers Care Mess Attendant Crew Name Role Phone Bridger Craven MD Primary Care Provider [phone] Allergies Active Allergy Reactions Criticality Noted Date [...] age to complete this topic Care Teams Mess Attendant Crew Relationship Specialty Start Date End Date Bridger Craven MD PCP - General Internal Medicine 06/23/24
--- OUTSIDE RECORDS SUMMARY | 2025-11-04 14:26 | XMS_ITS | Clinical Summary ---
Author Organization [facility] Address [address] [place] [address] Care Team Providers Care Pipe Threader Name Role Phone Unavailable Primary Care Provider [...] (Shingrix) (1 of 2) 2024 COVID-19 Vaccine (1 - 2024-2 6 season) 2025 Influenza (#1) 2025 RSV (1 - 1-dose 75+ series) 2049 HPV Vaccine (No Doses Required) Completed Hep A Aged Out No longer eligi ble based on patient's age to complete this topic Hib Aged Out No longer eligi ble based on patient's age to complete this topic Meningococcal ACWY Aged Out No longer eligible based on patient's age to complete this topic
--- OUTSIDE RECORDS SUMMARY | 2025-11-04 14:26 | XMS_ITS | Clinical Summary ---
Author Organization [facility] [place] [address] Phone Care Team Providers Care House Sitter Name Role Phone Ralph Ocampo MD Primary Care Provider [phone] Allergies Active Allergy Reactions Criticality Noted Date Comments Animal Dander 07/29/2024 Cockroach Unknown 02/13/2025 Dog Dander 09/08/2022 Grass Pollen 09/08/2022 Grass Pollen-Red Top, Standard 07/29 House Dust Hives 02/13/2025 Tree And Shrub Pollen Hives 02/13/2025 Medications albuterol HFA (Ventolin HFA) 90 mcg/actuation inhaler Inhale 2 puffs by mouth every 6 (six) hours if needed for wheezing. 3 each 3 5 02/09/20 26 Active topiramate (TOPAMAX) 50 mg tablet Take 1 tablet (50 mg total) by mouth 2 (two) times a day. 180 tablet 1 5 Active EPINEPHrine (EpiPen 2-Reuben) 0.3 mg/0.3 mL injection Inject 0.3 mL (0.3 mg total) into the thigh if needed for anaphylaxis. 1 each 1 5 Active montelukast (SINGULAIR) 10 mg tablet Take 1 tablet (10 mg total) by mouth at bedtime. 90 each 1 5 Active cyclobenzaprine (FLEXERIL) 10 mg tablet TAKE 0.5-1 TABS BY MOUTH 2 TIMES A DAY IF NEEDED FOR MUSCLE SPASMS. 30 tablet 5 Active estradioL (VIVELLE-DOT) 0.1 mg/[address] 1 patch on the skin 2 (two) times a week. 24 patch 2 5 Active plecanatide (Trulance) 3 mg tablet Take 1 tablet (3 mg total) by mouth 1 (one) time each day. 90 tablet 1 5 Active ibuprofen (ADVIL,MOTRIN) 600 mg tabletIndication s:Dorsalgia, unspecified Take 1 tablet (600 mg total) by mouth every 6 (six) hours if needed for moderate pain. 60 tablet 5 5 Active SUMAtriptan (IMITREX) 25 mg tablet Take 1 tablet (25 mg total) by mouth 1 (one) time if needed for migraine. May repeat dose once in 2 hours if no relief. Do not exceed 2 doses in 24 hours. 9 tablet 3 5 10/05/20 26 Active Active Problems Problem Noted Date Diagnosed Date Ganglion cyst of dorsum of right wrist 3 Overview (07/28/2024): Had aspiration 11/04/2023 Dizziness 10/16/2022 Overview (07/28/2024): Last Assessment & Plan: Patient is complaining of positional dizziness. I suspect that this is mild orthostasis even though are not seen on exam. She is taking an [id number] diuretic I asked her to stop it [...] Encounters Date Type Department Care Team Description 11/02/2025 10:00 AM EST Office Visit Internal Medicine - [facility] [address] [place] [address] Ralph Ocampo MD Hot flash, menopausal (Primary Dx); Breast tenderness in female; Chronic midline thoracic back pain; Large breasts; Shoulder blade pain; Intercostal pain 11/01/2025 10:35 AM EST Lab Draw Station - [address] [phone] Heat intolerance; Mixed hyperlipidemia 11/01/2025 Results [facility] [address] [facility] [place] [phone] Ralph Ocampo MD 08/31/2025 Results Follow-Up Internal Medicine - [address] [place] [phone] Gail Payton [place] 08/16/2025 2:30 PM EDT Office Visit Obstetrics and Gynecology - [address] [place] [phone] Brina Hill CNM Prolapse of female pelvic organs (Primary Dx) from Last 3 Months Immunizations Immunization Administration [...] Kaur Diabetes Mother Judy Kaur Hypertension Mother Judywanda Kaur Breast cancer Neg Hx Relation Name [...] for your loved ones. For example, child support officer or elderly care for an older adult? [...] Pulse 77 11/02/2025 9:32 AM EST Temperature 36.8 C (98.2 F) 02/08/2025 3:22 PM EDT Respiratory Rate 16 07/26/2025 8:30 AM EDT Oxygen Saturation 98% 02/08/2025 3:22 PM EDT Inhaled Oxygen Concentration - - Weight 69.4 kg (153 lb) 11/02/2025 9:32 AM EST Height 157.5 cm (5' 2 ) 11/02/2025 9:32 AM EST Body Mass Index 27.98 11/02/2025 9:32 AM EST Plan of Treatment Upcoming Encounters Date Type Department Care Team (Late st Contact Info) Description 11/06/2025 8:00 AM EST Consult Plastic & Reconstructive Surgery - [place] [address] [facility] [address] [place] [address] Veronica Salazar PA [address] [place] [phone] 11/08/2025 1:00 PM EST Office Visit Urogynecology [address] [phone] Yuni Rodas MD [address] [place] [address] [address] [place] [address] 11/29/2025 1:00 PM EST [facility]ointment [facility] [address] [phone] 12/05/2025 8:45 AM EST Office Visit Obstetrics and Gynecology - [facility] [address] [place] [phone] Laurie Walls, [facility] [address] [place] [address] Health Maintenance Due Date Last Done Comments Colorectal Cancer Screening: Colonoscopy 1975 Hepatitis B Vaccines (3 of 3 - 19+ 3-dose series) 10/20/1998 08/25/1998, 07/24/1998, 10/24/1995 RSV Immunization Adult Patients (1 - Risk 50-74 years 1-dose series) 2024 Social Influencers of Health Screening 11/16/2025 11/16/2024 Hypertension/CHF/CAD Annual BMP Blood Test 11/01/2026 11/01/2025, 07/26/2025, 11/23/2024, Additional history exists Breast Cancer Screening 02/27/2027 02/28/20, 02/18/2024, 02/18/2023 DTaP,Tdap,and Td Vaccines (4 - Td or Tdap) 10/30/2030 10/30/2020, 10/31/2008, 06/11/1998 Cholesterol Screening (Lipid Panel) 11/01/2030 11/01/2025, 11/23/2024, 02/19/2024 COVID-19 Vaccine Discontinued 05/08/2021, 04/17/2021 Pneumococcal Vaccine: [...] Procedure Name Priority Date/Time Associated Diagnosis Comments HEMOGLOBIN A1C Routine 11/01/2025 10:37 AM EST Mixed hyperlipidemia LIPID PANEL WITH REFLEX TO DIRECT LDL Routine 11/01/2025 10:37 AM EST Mixed hyperlipidemia COMPREHENSIVE METABOLIC PANEL Routine 11/01/2025 10:37 AM EST Mixed hyperlipidemia THYROID STIMULATING HORMONE WITH REFLEX TO FREE T4 AND FREE T3 Routine 11/01/2025 10:37 AM EST Heat intolerance EXTERNAL CLINICAL LAB 08/31/2025 MG MAMMO DIGITAL SCREENING W JOSE DE JESUS BILAT Routine 02/27/2025 7:19 AM EDT Encounter for screening mammogram for malignant neoplasm of breast from Last 3 Months or Most Recently Relevant to Health Maintenance Results * Thyroid stimulating hormone with reflex to free t4 and free t3 (11/01/2025 10:37 AM EST) TSH 0.87 0.40 - 4.00 mcIU/mL 11/01/2025 2:43 PM EST [facility] Blood Venous blood specimen / Unknown Venipuncture / Unknown 11/01/2025 10:37 AM EST 11/01/2025 10:37 AM EST us Ralph Ocampo MD LAB BLOOD ORDERABLES Final Resu lt [facility] [address] [place] [address], [place] [phone] * (ABNORMAL) Lipid panel with reflex to direct LDL (11/01/2025 10:37 AM EST) Cholesterol 201(H) 0 - 200 mg/dL 11/01/2025 2:43 PM [facility] Triglycerides 131 0 - 150 mg/dL 11/01/2025 2:43 PM [facility] HDL 62 >=40 mg/dL 11/01/2025 2:43 PM [facility] LDL Calculated 113(H) 0 - 100 mg/dL 11/01/2025 2:43 PM [facility] Comment:Estimated LDL is lavonne culated using the Friedewald equation: Total cholesterol - HDL cholesterol - (Triglycerides/5) VLDL Cholesterol Lavonne 26.2 mg/dL 11/01/2025 2:43 PM [facility] Non HDL Chol. (LDL+VLDL) 139 <145 mg/dL 11/01/2025 2:43 PM [facility] Chol/HDL Ratio 3.2 0.0 - 4.4 11/01/2025 2:43 PM [facility] Blood Venous blood specimen / Unknown Venipuncture / Unknown 11/01/2025 10:37 AM EST 11/01/2025 10:37 AM EST Ralph Ocampo MD LAB BLOOD ORDERABLES Final Resu lt [facility] [address] [place] [address], * Hemoglobin A1c (11/01/2025 10:37 AM EST) Hemoglobin A1C 5.4 <6.5 % LAB CHEMISTRY METHOD 11/01/2025 1:48 PM [facility] Mean Bld Glu Estim. 108 mg/dL LAB CHEMISTRY METHOD 11/01/2025 1:48 PM [facility] Blood Venous blood specimen / Unknown Venipuncture / Unknown 11/01/2025 10:37 AM EST 11/01/2025 10:37 AM EST us Ralph Ocampo MD LAB BLOOD ORDERABLES Final Resu lt [facility] [address] [place] [address], * Comprehensive metabolic panel (11/01/2025 10:37 AM EST) Sodium 138 133 - 145 mmol/L 11/01/2025 2:43 PM [facility] Potassium 4.2 3.5 - 5.5 mmol/L 11/01/2025 2:43 PM [facility] Chloride 101 96 - 110 mmol/L 11/01/2025 2:43 PM [facility] CO2 29 21 - 32 mmol/L 11/01/2025 2:43 PM [facility] Anion Gap 8 3 - 11 11/01/2025 2:43 PM [facility] Glucose 76 70 - 100 mg/dL 11/01/2025 2:43 PM [facility] BUN 10 5 - 25 mg/dL 11/01/2025 2:43 PM [facility] Creatinine 0.58 0.50 - 1.10 mg/dL 11/01/2025 2:43 PM [facility] eGFR 110 >=60 mL/min/1. 73m2 11/01/2025 2:43 PM [facility] Comment:Calculation based on the Chronic Kidney Disease Epidemiology Collaboration (CKD-EPI) equation refit without adjustment for race. BUN/Creatinine Ratio 17.2 11/01/2025 2:43 PM [facility] Calcium 8.9 8.5 - 10.5 mg/dL 11/01/2025 2:43 PM [facility] AST (SGOT) 29 10 - 42 unit/L 11/01/2025 2:43 PM [facility] ALT (SGPT) 30 10 - 60 unit/L 11/01/2025 2:43 PM EST [facility] Alkaline Phosphatase 55 42 - 121 unit/L 11/01/2025 2:43 PM [facility] Total Protein 7.1 6.0 - 8.0 g/dL 11/01/2025 2:43 PM [facility] Albumin 4.0 3.2 - 5.0 g/dL 11/01/2025 2:43 PM [facility] Total Bilirubin 0.3 0.0 - 1.4 mg/dL 11/01/2025 2:43 PM [facility] Blood Venous blood specimen / Unknown Venipuncture / Unknown 11/01/2025 10:37 AM EST 11/01/2025 10:37 AM EST Ralph Ocampo MD LAB BLOOD ORDERABLES Final Resu lt [facility] [address] [place] [address], * External clinical lab (08/31/2025) us Provider [facility] LAB BLOOD ORDERABLES Fin al Result * MG Mammo Digital Screening w [...] year. Mammography location: [facility] [address] [place], [address] -------- FINAL REPORT -------- Dictated By: Efrain Watts Dictated Date: 02/27/2025 10:57 ET Assigned Physician: Efrain Watts Reviewed and Electronically Signed By: Efrain Watts Signed Date: 02/27/2025 11:20 ET Workstation ID: [id number] Transcribed By: Self Edit Transcribed Date: 02/27/2025 10:57 ET Narrative 02/27/2025 11:20 AM EDT EXAM: SCREENING MAMMOGRAPHY, BILATERAL HISTORY: SCREENING. No additional history. COMPARISON: 02/18/24, 02/16/23, 12/18/21, 12/17/20 TECHNIQUE: Synthesized CC and MLO projections of each breast. Tomosynthesis of each breast in the CC and MLO projections. ADDITIONAL IMAGING: None Computer-aided detection was employed with the [employer] AI 3-D. TISSUE DENSITY: There are scattered areas of fibroglandular density. (BI-RADS category B) FINDINGS: RIGHT BREAST: No suspicious mass. No suspicious calcification. No distortion. No additional suspicious right breast findings LEFT BREAST: No suspicious mass. No suspicious calcification. No distortion. No additional suspicious left breast findings Procedure Note Efrain Watts, MD - 02/27/2025 EXAM: SCREENING MAMMOGRAPHY, BILATERAL HISTORY: SCREENING. No additional history. COMPARISON: 02/18/24, 02/16/23, 12/18/21, 12/17/20 TECHNIQUE: Synthesized CC and MLO projections of each breast.Tomosynthesis of each breast in the CC and MLO projections. ADDITIONAL IMAGING: None Computer-aided detection was employed with the [employer] AI 3-D. TISSUE DENSITY: There are scattered [...] year. [facility]amm[facility] location: [facility] [address], [address] -------- FINAL REPORT -------- Dictated By: Efrain Watts Dictated Date: 02/27/2025 10:57 ET Assigned Physician: Efrain Watts Reviewed and Electronically Signed By: Efrain Watts Signed Date: 02/27/2025 11:20 ET Workstation ID: [id number] Transcribed By: Self Edit Transcribed Date: 02/27/2025 10:57 ET Dennise Cha CNM IMG BI PROCEDURES Final Res ult from Last 3 Months or Most Recently Relevant to Health Maintenance Insurance [facility] Care Teams House Sitter Relationship Specialty Start Date End Date Ralph Ocampo MD [address] [place] [id number] PCP - General Internal Medicine 09/28/24
== END 2025-11-04 14:21 | disposition home or self-care (01) ==
LOC: HO.MRI 14:20
PROVIDERS: PCP Internal Medicine; Visit Provider Psychiatry & Neurology Neurology
DX: R42 Dizziness and giddiness (principal)
CPT/HCPCS: 70551

== ENCOUNTER → 2025-11-04 14:20 | Outpatient (BNV) | payer BC, SELFPAY | PROVIDERS: PCP Internal Medicine; Visit Provider Radiology Diagnostic Radiology | DX: R42 Dizziness and giddiness (principal) | CPT/HCPCS: 70551 ==